=== PATIENT | male | born 1930 | race Caucasian/White ===

== ENCOUNTER 2018-11-15 16:05 | Inpatient (IN) ==
--- NOTE | 2018-11-15 16:43 | PROVIDER DOCUMENTATION ---
HPI-Musculoskeletal Pain/Inj - GENERAL Chief Complaint: Hip Pain Stated Complaint: FALL FROM STANDING Time Seen by Provider: 11/15/18 16:32 Source: patient - HX OF PRESENT ILLNESS-MUSKULOSKELTAL Nature of Presenting Problem: 88yom present to ER via EMS with c/o left hip pain. Pt reports he got up off the couch to go to restroom and tripped, landing on left hip. Quality of Pain: reports: aching, throbbing Onset/Duration: this afternoon Timing: still present Any recent injury?: Yes Locality of Occurance: Home Similar Symptoms Previously?: No Recently seen or treated by another doctor?: No - FALL INJURY Location of Pain/Injury: reports: pelvis (left hip) Pain Radiation: reports: no radiation Reason for Fall: reports: tripped Loss of Consciousness: no loss of consciousness Injury Associated Symptoms: reports: snap/crack/pop sensation, unable to bear weight, other (left hip pain). denies: chest pain, dizziness, shortness of breath, sensory/motor loss, vomiting Review of Systems - Adult - REVIEW OF SYSTEMS - ADULT Constitutional: reports: no symptoms reported Eyes: reports: no symptoms reported Ears, Nose, Mouth & Throat: reports: no symptoms reported Cardiovascular: reports: no symptoms reported Respiratory: reports: no symptoms reported Gastrointestinal: reports: no symptoms reported Genitourinary: reports: no symptoms reported Musculoskeletal: reports: see HPI, other (left hip pain) Integumentary: reports: no symptoms reported Neurological: reports: no symptoms reported Psychiatric: reports: no symptoms reported Endocrine: reports: no symptoms reported Hematologic/Lymphatic: reports: no symptoms reported Allergic/Immunologic: reports: no symptoms reported All Other Systems: Reviewed and Negative Past History - Adult - PAST MEDICAL HISTORY-ADULT Review of Records: reports: Old Records Reviewed, Nursing Assessment Review, Medications Reviewed Major Childhood Illnesses: reports: denies history Cardiovascular: reports: denies history Respiratory: reports: denies history Gastrointestinal: reports: denies history Obstetrical/Gynecological: reports: denies history Genitourinary: reports: denies history Musculoskeletal: reports: denies history Neurological: reports: denies history Endocrine/Immune: reports: Lymphoma, thyroid disorder Other Conditions: reports: denies history - IMMUNIZATION STATUS Childhood Immunizations: See Nurse Assessment Flu Vaccine: See Nurse Assessment - FAMILY HISTORY Family History: reviewed, not pertinent Physical Exam-Injury Related - Physical Exam-Injury Related Initial Vital Signs Reviewed: Yes General Appearance: alert, mild distress Eyes: PERRL/EOMI Head, Ears, Nose, Mouth & Throat: moist mucous membranes Neck: full range of motion, supple, normal inspection Respiratory: lungs clear, no respiratory distress, no accessory muscle use Cardiovascular: normal peripheral pulses, regular rate, rhythm Peripheral Pulses: dorsalis-pedis (L): 1+ Abdominal Exam: normal bowel sounds, non tender, soft Extremity: no pedal edema, no calf tenderness, normal capillary refill, deformity, tenderness (left hip), other (rotation and shortening noted). negative: erythema Integumentary: normal color, warm/dry Psych/Mental Status: normal mood/affect, oriented x 3 - Glascow Coma Score Best Eye Response (Lydia): (4) open spontaneously Best Verbal Response (Campbell): (5) oriented Best Motor Response (Campbell): (6) obeys commands Progress - PLAN OF CARE/RESULTS Progress/Plan/Lab Results: Vital Signs - 8 hr 11/15/18 16:12 Temperature 97.8 F Pulse Rate 55 L Respiratory Rate 20 Blood Pressure 132/59 O2 Sat by Pulse Oximetry 94 L Orders Category Date Time Status Ordoñez Cath Insertion ORDERED Care 11/15/18 18:29 Active Nursing- Obtain EKG ONCE Care 11/15/18 17:59 Active Saline Loc NOW Care 11/15/18 17:59 Active Update & Confirm Home Medicati ROUTINE Care 11/15/18 18:23 Active XRAY PELVIS W/HIP 2-3VW LT [RAD] Stat Exams 11/15/18 16:34 Completed CBC WITH ELECTRONIC DIFF [HEME] Stat Lab 11/15/18 18:33 Ordered COMPREHENSIVE METABOLIC PANEL [CHEM] Stat Lab 11/15/18 18:33 Ordered PROTIME WITH INR [COAG] Stat Lab 11/15/18 18:33 Ordered PTT [COAG] Stat Lab 11/15/18 18:33 Ordered URINALYSIS W/POSS RFLX CULT [URINALYSIS] Stat Lab 11/15/18 17:59 Uncollected Morphine Med 11/15/18 18:12 Discontinued 2 mg IV NOW ONE Ondansetron [Zofran] Med 11/15/18 18:13 Discontinued 4 mg IV NOW ONE EKG [EKG] Stat Ther 11/15/18 17:59 Ordered Transfer/Admit Order [TRANSFER] Routine Transfer 11/15/18 18:19 Ordered - XRAY 1 XRAY: Left XRAY Study: Pelvis, Hip Impression: See EMR Report ([facility] [address] , [address], [place] [address] Department of Imaging Patient: CHARLOTTE WATSON Date: 11/15/18#: [id number] : 1930ADM Status: REG ERAcct#: [id number] Age/Sex: 88/MRoom/Bed: Loc: P.ED Ordering Physician: Minerva Nevarez Family Physician: None,PCP Reason for Procedure: hip pain Signed EXAM: XRAY PELVIS W/HIP 2-3VW LT - 11/15/2018 HISTORY: hip pain TECHNIQUE: Left hip and pelvis three views COMPARISON: None. FINDINGS: There is an intertrochanteric fracture of the left femur with comminution and varus deformity. Fracture appears to extend into the subtrochanteric region. There is no other fracture or dislocation identified. IMPRESSION: Intertrochanteric/subtrochanteric fracture of left femur. Electronically signed by Gustavo Metz 11/15/2018 5:47 PM 11/15/181746 Interpreting Physician: Gustavo Metz MD Dictated Date/Time: 11/15/181745 cc: Minerva Nevarez; None,PCP) - CONSULTS/PCP/HOSPITALIST Notification #1 *Consult/PCP/Hospitalist*: MD Eboni Time Discussed: 17:55 Reason/Comments: Femur fx Consult Disposition: Admit #2 Consult: MD Valerio Time Discussed: 18:05 Reason/Comments: Femur fx Consult Disposition: other (Will see at and consult w/ Eboni) - CHANGE OF SHIFT REPORT (ED Provider) 1 Report Given and Care Transferred to:: MARTÍN Alejandro Time of Transfer: 17:00 Items Pending: XRAY Results Departure - Departure Date of Disposition Decision: 11/15/18 Time of Disposition Decision: 18:01 DIAGNOSIS: Femur fracture, left Qualifiers: Encounter type: initial encounter Femur location: intertrochanteric Fracture type: closed Fracture alignment: nondisplaced Qualified Code(s): S72.145A - Nondisplaced intertrochanteric fracture of left femur, initial encounter for closed fracture Disposition: ADMITTED INPATIENT 09 Certified Medical Emergency: Emergent Condition: Stable Referrals and Follow-Ups: None,PCP [Primary Care Provider] - - Critical Care Note This patient required my direct & personal management of CC.: No Attestation - Physician/ RONALD Attestation Patient care was provided by Advanced Practice Provider:: Yes Advanced Practice Provider:: Caitie Mayorga Advanced Practice Provider documentation review:: The Mid-level provider documentation, treatment plan and medical decision making was reviewed by the physician who agrees with all treatment and medical decision making by the P. The physician spent face to face time with patient:: No Advanced Practice Provider documentation review:: Supervising physician onsite and consulted in the evaluation and care of this patient. The physician did not have a face to face encounter with the patient.
--- NOTE | 2018-11-15 17:49 | Diag Imaging Result Doc PS360 ---
EXAM: XRAY PELVIS W/HIP 2-3VW LT - 11/15/2018 HISTORY: hip pain TECHNIQUE: Left hip and pelvis three views COMPARISON: None. FINDINGS: There is an intertrochanteric fracture of the left femur with comminution and varus deformity. Fracture appears to extend into the subtrochanteric region. There is no other fracture or dislocation identified. IMPRESSION: Intertrochanteric/subtrochanteric fracture of left femur. Electronically signed by Gustavo Metz 11/15/2018 5:47 PM
[2018-11-15] MEDS ORDERED: MORPHINE IV ONE (18:12)
[2018-11-15] MEDS ORDERED: ZOFRAN IV ONE (18:13)
[2018-11-15 19:01] LABS: BASO# 0.04 X1000 (0.0-0.2); BASO% 0.7 % (0.0-0.8); EOS# 0.05 X1000 (0.0-0.7); EOS% 0.9 % (0.0-10.0); HEMATOCRIT 35.8 % (42.0-52.0); HEMOGLOBIN 11.5 g/dL (14.0-18.0); IMM GRAN# 0.08 X1000 (0.0-0.04); IMM GRAN% 1.4 % (0.0-0.5); LYMPH# 1.58 X1000 (1.2-3.4); LYMPH% 28.5 % (20.5-51.1); MCH 30.6 PG (27-31); MCHC 32.1 g/dL (33-37); MCV 95.2 FL (81-99); MONO# 0.56 X1000 (0.11-0.59); MONO% 10.1 % (1.7-9.3); MPV 10.3 FL (7.4-10.4); NEUT# 3.24 X1000 (1.4-6.5); NEUT% 58.4 % (42.2-75.2); PLT 145 X1000 (130-400); RBC 3.76 XMIL (4.7-6.1); RDW 16.8 % (11.5-14.5); WBC 5.55 X1000 (4.8-10.8)
[2018-11-15 19:18] LABS: AGAP 10; ALBUMIN 3.4 g/dL (3.5-5.0); ALKALINE PHOSPHATASE 84 U/L (32-122); BUN 14 mg/dL (8-22); CALCIUM 8.8 mg/dL (8.8-10.2); CHLORIDE 102 mmol/L (98-107); COSMO 279; CREATININE 0.9 mg/dL (0.7-1.2); ESTIMATED GFR > 60; GLUCOSE 118 mg/dL (70-104); GOT 30 U/L (10-34); GPT 12 U/L (10-44); POTASSIUM 4.2 mmol/L (3.5-5.1); SODIUM 139 mmol/L (136-145); TCO2 27 mmol/L (25-35)
[2018-11-15 19:20] LABS: INR 0.94
[2018-11-15 19:21] LABS: PTT 27.6 Seconds (22.3-41.8)
--- NOTE | 2018-11-15 19:46 | HISTORY AND PHYSICAL ---
SUBJECTIVE: Recent fall. HISTORY OF PRESENT ILLNESS: The patient is an 88-year-old male who comes from home with status post fall. He denies any syncope , or any prodromal palpitations; in the sense of he denies any passing out. He fell on his left hip and was unable to ambulate subsequently. Patient has not had any other fractures. Pt came to the ER for evaluation; and in the ER revealed a displaced intertrochanteric hip fracture. He states he got up from the couch and tripped. Again there was no syncope. He does have a history of non-Hodgkin's lymphoma, looks like atrial fibrillation but he is not on chronic anticoagulation. He reports pain with movement of his hip and he cannot bear any weight on that leg. He will be admitted for left hip fracture and will transfer to [facility]. Dr. Luo has been notified. PAST MEDICAL HISTORY: 1. Non-Hodgkin's for which she is getting treatment per Dr. Dudley. 2. Paroxysmal atrial fibrillation. 3. Hypertension. 4. BPH. 5. Chronic diastolic heart failure. 6. Anxiety disorder, depression. 7. Carotid disease. 8. Dyslipidemia. PAST SURGICAL HISTORY: He has had cholecystectomy, left knee surgery, right inguinal herniorrhaphy. SOCIAL HISTORY: No tobacco. No alcohol. FAMILY HISTORY: Reviewed, noncontributory. ALLERGIES: Haldol. MEDICATIONS: List is being compiled. Aspirin 81, amiodarone 200, Zydelig 150 daily, Colace, Flomax, [place] and Zofran. Now, he was recently admitted in June for right inguinal repair. REVIEW OF SYSTEMS: Otherwise, negative times a 10-point review of systems. PHYSICAL EXAMINATION: Blood pressure 132/59, heart rate 55, respiratory rate of 20, temperature 97.8. 94% on room air. GENERAL: Well-developed male in no acute distress. HEENT: Head exam was normocephalic, atraumatic. Eye exam: Pupils equal, round, reactive to light. Extraocular movements were intact. Ears, nose and throat exam: He had moist mucous membranes. NECK: Supple. CARDIOVASCULAR: Regular rate and rhythm. No murmurs, gallops, or rubs. PULMONARY: Bilateral breath sounds. Clear to auscultation. GASTROINTESTINAL: Soft, nontender, nondistended. Bowel sounds are positive. EXTREMITIES: Left leg was foreshortened and completely externally rotated. Extreme pain upon movement. LABORATORY DATA: 1. I do not have anything back yet because they were waiting on those and that information. ASSESSMENT: 1. This is an 88-year-old male with non-Hodgkin's and paroxysmal atrial fibrillation. He is not on any strong anticoagulants that we are aware of, he has a left hip fracture pending his EKG and preliminary labs, I think should be able to proceed with surgery, but I am waiting on that information. Dr. Luo has been contacted. We will continue pain control and follow closely. 2. Non-Hodgkin's lymphoma. Seems to be controlled on current medications. It looks like he is on, I am not sure if he is not on a tyrosine kinase inhibitor, but we will continue to follow. 3. Atrial fibrillation and congestive heart failure appear to be compensated. We will monitor that while he is here. I will go ahead and put in for an echocardiogram tomorrow. Anticipate he should be able to undergo surgery soon. DISPOSITION: Pending clinical status. We will continue to follow closely. cc: Kaushik Lyn MD [facility]
[2018-11-15 20:14] LABS: BILIRUBIN URINE NEGATIVE (NEGATIVE); BLOOD URINE 4+ (NEGATIVE); CLARITY CLEAR (CLEAR); COLOR AMBER; GLUCOSE URINE NEGATIVE (NEGATIVE); KETONE URINE TRACE mg/dL (NEGATIVE); PH URINE 6.5; PROTEIN URINE TRACE mg/dL (NEGATIVE); URINE SOURCE CATH; UROBILINOGEN URINE 4 mg/dL
[2018-11-15 20:15] LABS: LEUKOCYTES URINE TRACE (NEGATIVE); NITRITE URINE NEGATIVE (NEGATIVE)
[2018-11-15 20:16] LABS: URINE BACTERIA 1+ /HFP; URINE CAST NONE SEEN /LPF; URINE CRYSTAL NONE SEEN /HPF; URINE EPITHELIAL CELLS <10 /HPF (<10); URINE RBC TNTC /HPF (<10); URINE WBC <10 /HPF (<10); URINE YEAST NONE SEEN /HPF
[2018-11-15] MEDS ORDERED: TYLENOL ONE (21:24)
[2018-11-15] MEDS ORDERED: TYLENOL PO ONE (21:31)
[2018-11-15] MEDS ORDERED: TYLENOL PO PRN (21:53)
[2018-11-15] MEDS ORDERED: ZOFRAN IV PRN (21:53)
[2018-11-15] MEDS: NS 1,000 ML IV SCH (22:14)
[2018-11-15] MEDS: MORPHINE IV PRN (22:55)
[2018-11-16] MEDS: MORPHINE IV PRN ×4 (03:22→23:29)
[2018-11-16 06:28] LABS: BASO# 0.03 X1000 (0.0-0.2); BASO% 0.6 % (0.0-0.8); EOS# 0.01 X1000 (0.0-0.7); EOS% 0.2 % (0.0-10.0); HEMATOCRIT 32.2 % (42.0-52.0); IMM GRAN# 0.07 X1000 (0.0-0.04); IMM GRAN% 1.4 % (0.0-0.5); LYMPH# 1.56 X1000 (1.2-3.4); LYMPH% 31.3 % (20.5-51.1); MCH 29.9 PG (27-31); MCHC 31.1 g/dL (33-37); MCV 96.4 FL (81-99); MONO# 0.68 X1000 (0.11-0.59); MONO% 13.7 % (1.7-9.3); MPV 10.1 FL (7.4-10.4); NEUT# 2.63 X1000 (1.4-6.5); NEUT% 52.8 % (42.2-75.2); PLT 107 X1000 (130-400); RBC 3.34 XMIL (4.7-6.1); RDW 16.7 % (11.5-14.5); WBC 4.98 X1000 (4.8-10.8)
[2018-11-16 06:51] LABS: CREATININE 1.3 mg/dL (0.7-1.2)
[2018-11-16] MEDS ORDERED: KEFZOL 2 GM/D5W 2 GM/50 ML IVPB IV ONE (07:52)
--- NOTE | 2018-11-16 09:28 | CONSULTATION ---
DATE OF CONSULTATION: 11/16/2018 CHIEF COMPLAINT: Fall with left leg pain and inability to ambulate, and left leg deformity. HISTORY OF PRESENT ILLNESS: This is an 88-year-old male who had a same-level fall at home. He denies any loss of consciousness. He subsequently was unable to ambulate, and had an obvious deformity to his hip. He was sent to the ER and diagnosed with a displaced intertrochanteric comminuted hip fracture on the left, and I was asked to see him in orthopedic consultation. PAST MEDICAL HISTORY: Includes non-Hodgkin's lymphoma with his treating physician being Dr. Acuña. He has a history of atrial fibrillation, hypertension, prostatic hypertrophy, diastolic heart failure, anxiety, carotid artery disease and hyperlipidemia. PAST SURGICAL HISTORY: Includes a cholecystectomy, left knee surgery, and a right inguinal hernia. SOCIAL HISTORY: Negative for tobacco or alcohol use. FAMILY HISTORY: Noncontributory. ALLERGIES: Include Haldol. MEDICATIONS: See medication list in the chart. REVIEW OF SYSTEMS: Except for his hip, negative and normal in all systems. PHYSICAL EXAMINATION: Reveals a well-nourished male. He is alert and oriented and cooperative on exam. Exam of his hip reveals pain with any range of motion. His leg is shortened and externally rotated. His leg is neurovascularly intact. DIAGNOSTIC DATA: X-rays show a comminuted intertrochanteric hip fracture on the left. IMPRESSION: A comminuted intertrochanteric hip fracture on the left. PLAN: We will plan on performing a left long trochanteric fixation nail placement. I have discussed this at length with the family. I have discussed with him the risks, benefits and alternatives of surgery, including, but not limited to bleeding, nerve damage, infection, risk from anesthesia, hardware failure, malunion, nonunion, up to and including loss of limb, life, and other imponderables. He and his family voiced their understanding. All questions were answered. No guarantees were given. They requested we proceed as planned. We will schedule surgery as soon as OR time is available. cc: Toan Luo MD [facility]
--- NOTE | 2018-11-16 09:46 | EKG Report ---
Test Performed on : 11/15/2018 7:12:08 PM Test Reason : Pre-Op Blood Pressure : / mmHG Vent. Rate : 062 BPM Atrial Rate : 057 BPM P-R Int : 000 ms QRS Dur : 094 ms QT Int : 370 ms P-R-T Axes : 000 -35 047 degrees QTc Int : 375 ms Junctional rhythm. Left axis deviation Abnormal ECG When compared with ECG of 27-JUN-2018 10:04, Junctional rhythm. has replaced Sinus rhythm. QT has shortened Unconfirmed Result
[2018-11-16] MEDS ORDERED: DIPRIVAN 1% ONE (10:42)
[2018-11-16] MEDS ORDERED: XYLOCAINE-MPF 2% ONE (10:45)
[2018-11-16] MEDS ORDERED: KEFZOL 2 GM/D5W 2 GM/50 ML IVPB ONE (11:55)
[2018-11-16] MEDS ORDERED: AMIDATE ONE (12:05)
[2018-11-16] MEDS ORDERED: EPHEDRINE ONE (12:18)
[2018-11-16] MEDS ORDERED: TORADOL ONE (12:40)
[2018-11-16] MEDS ORDERED: DECADRON ONE (12:40)
[2018-11-16] MEDS ORDERED: ROBINUL ONE (12:44)
[2018-11-16] MEDS: NS 1,000 ML IV SCH (13:59)
--- NOTE | 2018-11-16 14:01 | OPERATIVE NOTE ---
PROCEDURE DATE: 11/15/2018 PREOPERATIVE DIAGNOSIS: Left comminuted intertrochanteric hip fracture. POSTOPERATIVE DIAGNOSIS: Left comminuted intertrochanteric hip fracture. PROCEDURE: Left long trochanteric fixation nail placement size 420 mm with 110 mm helical blade and two 5.0 distal locking screws, size 50 and 58 mm in length. BLOOD LOSS: Minimal. DRAINS: None. COMPLICATIONS: None. SURGEON: Toan Luo MD. PROJECT CONTROL ANALYST: Mary Issa PA-C, who was present throughout the case. The medical office receptionist assistant was critical for exposure, placement implants and wound closure. His assistance greatly reduced anesthesia and operative time and improved efficiency in the OR. DESCRIPTION OF PROCEDURE: Patient was brought to the operative suite and placed in supine position after successful administration of general anesthesia. The patient was placed on the fracture table in the usual position for left hip. The left hip was then reduced under fluoroscopy. The left hip and leg were prepped and draped in usual sterile fashion. A longitudinal incision was made to the proximal to the tip of the greater trochanter and dissected sharply through the skin. A guide pin was placed in center of the femoral canal on AP and lateral images. It was reamed with a solid cannulated reamer. A ball-tipped guide pin was buried in distal metaphysis and proper length nail of 420 mm was measured. The nail was then driven into place, and then through a stab incision laterally a guide pin was used in the proximal guide. The guide pin was placed in center of the femoral head on AP and lateral images. It was measured to 110 mm. A 110 mm helical blade was then driven into place and locked proximally and then released to allow for compression. Traction was released. Then using the perfect circles technique through stab incision, the distal locking screws were drilled and measured of 50 and 58 mm, and were driven into place. Excellent reduction and placement of hardware was obtained on AP and lateral images. The wounds were copiously irrigated. Skin edge approximated with 2-0 Vicryl. Skin was closed with skin mery, and a sterile dressing was applied. The patient tolerated the procedure well without complications at the end of the procedure. All counts were correct x2. The patient was transferred to the recovery room in stable condition. cc: Toan Luo MD [facility]
[2018-11-16] MEDS ORDERED: ZOFRAN IV PRN (14:21)
[2018-11-16] MEDS ORDERED: HALDOL IV PRN (14:21)
[2018-11-16] MEDS ORDERED: MORPHINE IV PRN (14:21)
[2018-11-16] MEDS ORDERED: MILK OF MAGNESIA PO PRN (14:21)
--- NOTE | 2018-11-16 15:15 | ECHO REPORT ---
ORDER DATE: 11/16/2018 INDICATIONS: Congestive heart failure. FINDINGS: 1. Right atrium appears normal size at 3.5 cm. 2. Mild tricuspid regurgitation. RV systolic pressure of 36. 3. Normal RV size and systolic function. 4. Mild pulmonic insufficiency. 5. Moderate left atrial enlargement with a volume index of 38. Dimension of 4.3 cm. 6. No mitral valve prolapse. Trace mitral regurgitation. Mitral annular calcification is noted. No significant mitral stenosis. 7. Normal LV size, end-diastolic dimension of 4.2. Moderate left ventricular hypertrophy. Posterior and interventricular septal wall thickness 1.6 cm respectively. Normal LV systolic function. Estimated EF of 65% with normal wall motion. 8. Aortic valve opens well. There is no clear evidence of stenosis or insufficiency. 9. Aorta appears somewhat dilated with a dimension of 4.5 cm. 10. No pericardial effusion seen. cc: MD Melvin Wellington MD
--- NOTE | 2018-11-16 16:06 | PROGRESS NOTE ---
DATE: 11/16/2018 SUBJECTIVE: The patient is resting in bed. OBJECTIVE: Vital Signs: Temperature 98 degrees, pulse is 86, respiratory rate 16, blood pressure 97/46, O2 saturation is 97%. HEENT: Atraumatic, normocephalic. Cardiovascular: S1, S2. Respiratory: Has evidence of good entry bilaterally. Abdomen: Soft, nontender. No masses. Extremities: Has edema in both lower extremities. Central Nervous System: No obvious focal deficits noted. LABORATORY DATA: WBC 4.9, hematocrit 32.3, platelet count of 107,000, Sodium is 139, potassium 4.0, chloride is 104, bicarbonate 28, BUN is 20, creatinine 1.3. ASSESSMENT AND PLAN: 1. Comminuted intertrochanteric hip fracture on the left status post repair. Optimize pain control. Maintain the patient on deep venous thrombosis prophylaxis and also incentive spirometry. PT and OT when considered appropriate by the Orthopedic Team. 2. Acute kidney injury. Maintain the patient on intravenous fluids. Follow up on renal function. 3. Non-Hodgkin's lymphoma. Consultation with Oncology. 4. Atrial fibrillation. Heart rate is controlled. Continue the patient on amiodarone. 5. Congestive heart congestive heart failure. The patient is well compensated at this time. Monitor intakes and outputs as well as daily weights. Use diuretics as needed. 6. Deep vein thrombosis prophylaxis. Lovenox. cc: Melvin Bennett MD
[2018-11-16] MEDS: TYLENOL PO SCH ×2 (16:07→21:58)
[2018-11-16] MEDS: LOVENOX SUBQ SCH (16:07)
[2018-11-16] MEDS ORDERED: COLACE PO SCH (21:00)
[2018-11-16] MEDS: OXY IR PO PRN (21:57)
[2018-11-16] MEDS: COLACE PO SCH (21:58)
[2018-11-16] MEDS: PERIDEX MT SCH (22:25)
[2018-11-16] MEDS: PATIENT'S OWN MED PO SCH (22:28)
[2018-11-17] MEDS: NS 1,000 ML IV SCH ×2 (05:17→20:04)
[2018-11-17] MEDS: TYLENOL PO SCH ×4 (05:36→22:59)
[2018-11-17 06:22] LABS: BASO# 0.01 X1000 (0.0-0.2); BASO% 0.2 % (0.0-0.8); HEMATOCRIT 28.1 % (42.0-52.0); HEMOGLOBIN 8.7 g/dL (14.0-18.0); IMM GRAN# 0.22 X1000 (0.0-0.04); IMM GRAN% 3.5 % (0.0-0.5); LYMPH% 28.4 % (20.5-51.1); MCH 30.4 PG (27-31); MCV 98.3 FL (81-99); MONO# 0.73 X1000 (0.11-0.59); MONO% 11.5 % (1.7-9.3); MPV 10.8 FL (7.4-10.4); NEUT# 3.57 X1000 (1.4-6.5); NEUT% 56.4 % (42.2-75.2); PLT 90 X1000 (130-400); RBC 2.86 XMIL (4.7-6.1); RDW 16.9 % (11.5-14.5); WBC 6.33 X1000 (4.8-10.8)
[2018-11-17] MEDS ORDERED: DIPRIVAN 1% ONE (07:55)
[2018-11-17] MEDS: PERIDEX MT SCH ×2 (08:57→22:59)
[2018-11-17] MEDS: FERROUS SULFATE PO SCH (08:57)
[2018-11-17] MEDS: PATIENT'S OWN MED PO SCH ×2 (08:58→20:06)
[2018-11-17] MEDS: ASPIRIN PO SCH (08:58)
[2018-11-17] MEDS: CORDARONE PO SCH (08:58)
[2018-11-17] MEDS: COLACE PO SCH ×2 (08:58→20:03)
[2018-11-17 09:03] LABS: ALB/GLOB RATIO 1.2; CALCIUM 8.2 mg/dL (8.8-10.2); CREATININE 1.7 mg/dL (0.7-1.2); POTASSIUM 4.3 mmol/L (3.5-5.1); TOTAL BILIRUBIN 0.76 mg/dL (0.20-1.00); TOTAL PROTEIN 5.5 g/dL (6.3-8.3)
[2018-11-17] MEDS: OXY IR PO PRN ×2 (15:01→20:03)
[2018-11-17] MEDS: LOVENOX SUBQ SCH (15:18)
--- NOTE | 2018-11-17 15:52 | PROGRESS NOTE ---
DATE: 11/17/2018 SUBJECTIVE: Today Mr. Person refers to be doing fairly okay. He was requesting to know when he will be able to go home. , daughter and son were all at the bedside at the time of the encounter. Denies any complaints. OBJECTIVE: Vital signs: Blood pressure is 133/59, pulse is 69, respiration is 20, temperature 98.1 degrees. General: Mr. Person is an 88-year-old male. He is in bed, no distress. HEENT: Mucosa is pink and moist. Anicteric. Acyanotic. Neck: Supple. Chest: Good air entry bilaterally. No crepitations. No rhonchi. Cardiovascular: Regular rate and rhythm. No murmurs, no rubs, no gallops. Abdomen: Soft, nontender. Extremities: No pedal edema. The left hip still has a dressing over the surgical wound and it is minimally tender and swelling from postsurgical changes. LABORATORY DATA: WBC is 6.33, hemoglobin is 8.7, platelet count of 90,000. Chemistry is also reviewed. Creatinine is 1.7. CURRENT MEDICATIONS: Have all been reviewed. No changes. ASSESSMENT: 1. Comminuted left intertrochanteric fracture status post status post open reduction and internal fixation. This was done by Dr. Luo. Today is day 2 postoperatively and patient seems to be doing fairly okay. 2. Acute renal failure. We will continue with the IV fluids. 3. History of non-Hodgkin. 4. History of atrial fibrillation, currently rate controlled. 5. History of occasional vertigo and dizziness. The patient is advised to follow up with an ENT at a later date. cc: Anmol Cook MD
--- NOTE | 2018-11-17 16:14 | ORTHOPAEDICS PROGRESS NOTE ---
DATE: 11/17/2018 Mr. Person is seen status post TFN fixation of his hip. The present time, he is awake and alert and comfortable. He has some slight confusion. His bandages are clean and dry. He appears to be motor and sensory intact. Vital signs are stable as well as hematocrit. He can be mobilized partial weightbearing on that side. We will follow along through tomorrow. He can be discharged to rehab or home health when stable. cc: Jamie Bhandari MD
[2018-11-17] MEDS: MORPHINE IV PRN (23:26)
[2018-11-18] MEDS: TYLENOL PO SCH ×3 (05:23→22:50)
[2018-11-18] MEDS: OXY IR PO PRN ×3 (05:23→22:50)
[2018-11-18 06:08] LABS: HEMATOCRIT 23.9 % (42.0-52.0); HEMOGLOBIN 7.6 g/dL (14.0-18.0)
[2018-11-18 06:34] LABS: ALBUMIN 3.1 g/dL (3.5-5.0); CALCIUM 9.3 mg/dL (8.8-10.2); CREATININE 1.6 mg/dL (0.7-1.2); PHOSPHORUS 2.4 mg/dL (2.7-4.5); POTASSIUM 4.5 mmol/L (3.5-5.1)
[2018-11-18] MEDS: PERIDEX MT SCH ×2 (09:33→22:50)
[2018-11-18] MEDS: COLACE PO SCH ×2 (09:34→22:50)
[2018-11-18] MEDS: PATIENT'S OWN MED PO SCH ×2 (09:34→22:51)
[2018-11-18] MEDS: ASPIRIN PO SCH (09:34)
[2018-11-18] MEDS: FERROUS SULFATE PO SCH (09:34)
[2018-11-18] MEDS: CORDARONE PO SCH (09:34)
--- NOTE | 2018-11-18 11:10 | ORTHOPAEDICS PROGRESS NOTE ---
DATE: 11/18/2018 SUBJECTIVE: Mr. Person is seen today status post TFN fixation of the hip. He is doing relatively well. His incisions are clean and dry. There has been some slight venous oozing. Otherwise, he is afebrile with stable vital signs. We have discussed some discharge plans. He is considering going home with home therapy versus inpatient rehab. We will see the associate merchandise planner to start working on that. We will consider discharge one way or the other tomorrow. cc: Jamie Bhandari MD
--- NOTE | 2018-11-18 13:19 | PROGRESS NOTE ---
DATE: 11/18/2018 SUBJECTIVE: The patient resting in bed. Has family present in the room. OBJECTIVE: Vital signs: Temperature 98.8 degrees, pulse of 64, respiratory rate 16, blood pressure 103/45, oxygen saturation is 95%. HEENT: He is atraumatic, normocephalic. Cardiovascular System: S1, S2. Respiratory system has evidence of good air entry bilaterally. Abdomen is soft, nontender, no masses felt. Extremities: He has 1+ edema in the lower extremities. Central nervous system: The patient is awake and alert, with no obvious focal neurological deficits noted. LABORATORY DATA: Hemoglobin 7.6, hematocrit 23.9. Sodium is 134, potassium 4.5, chloride is 99, bicarbonate 25, BUN is 37, creatinine is 1.6. ASSESSMENT AND PLAN: 1. Comminuted intertrochanteric hip fracture on the left status post repair. Optimize pain control. Continue DVT prophylaxis as well as incentive spirometry. PT/OT has been recommended. 2. Acute kidney injury. The patient is currently on intravenous fluids. Continue to follow up on patient's renal function. 3. Non-Hodgkin's lymphoma. Aware. Follow up with Oncology post discharge from the hospital. 4. Atrial fibrillation. Heart rate is controlled. Continue amiodarone. 5. Congestive heart failure. Monitor intakes and outputs, as well as daily weights. Use diuretics if needed. 6. Deep vein thrombosis prophylaxis. Lovenox. DISPOSITION: I discussed with patient the need for rehabilitation placement. He will think about it and decide on what to do. cc: Melvin Bennett MD
[2018-11-18] MEDS: LOVENOX SUBQ SCH (14:21)
[2018-11-18] MEDS: NS 1,000 ML IV SCH ×2 (19:24)
[2018-11-19] MEDS: TYLENOL PO SCH ×3 (05:50→21:57)
[2018-11-19] MEDS: OXY IR PO PRN ×2 (05:50→21:57)
[2018-11-19 06:00] LABS: HEMATOCRIT 25.1 % (42.0-52.0); HEMOGLOBIN 7.9 g/dL (14.0-18.0); IMM GRAN# 0.15 X1000 (0.0-0.04); IMM GRAN% 1.9 % (0.0-0.5); LYMPH# 3.77 X1000 (1.2-3.4); LYMPH% 48.3 % (20.5-51.1); MCH 29.9 PG (27-31); MCHC 31.5 g/dL (33-37); MCV 95.1 FL (81-99); MONO# 1.01 X1000 (0.11-0.59); MONO% 12.9 % (1.7-9.3); MPV 10.3 FL (7.4-10.4); NEUT# 2.88 X1000 (1.4-6.5); NEUT% 36.9 % (42.2-75.2); PLT 107 X1000 (130-400); RBC 2.64 XMIL (4.7-6.1); RDW 17.1 % (11.5-14.5); WBC 7.81 X1000 (4.8-10.8)
[2018-11-19 06:21] LABS: CALCIUM 8.6 mg/dL (8.8-10.2); CREATININE 1.2 mg/dL (0.7-1.2); POTASSIUM 4.2 mmol/L (3.5-5.1)
--- NOTE | 2018-11-19 08:53 | PROGRESS NOTE ---
DATE: 11/19/2018 SUBJECTIVE: Fly Person is an 88-year-old white male who underwent a TFN on Monday. He has had minimal progress with Physical Therapy this weekend. He complains of dizziness at home causing the fall as well as weakness and nervousness and apprehension about walking due to fear of falling. OBJECTIVE: General: He is a well-developed, well-nourished male. He is alert, oriented, and cooperative exam. Vital signs: Stable. He is afebrile. Integument: His wounds have some mild serosanguineous drainage and bruising, which is appropriate. LABORATORY: His hematocrit was 24 on Monday and 25 yesterday. ASSESSMENT: Status post left trochanteric fixation nail with acute blood loss anemia. PLAN: Some of his weakness may be due to his anemia. I am going to transfuse him 2 units today, that should help give him more energy hopefully to be able to do his therapy. We do need to get him walking at least a little bit better before he can go to rehab, so I think we should keep him at least today and maybe tomorrow, maybe go on Monday. Also due to oozing from his wounds and his low hematocrit, I am going to hold his Lovenox and just increase his aspirin to 325 a day. cc: Toan Luo MD
[2018-11-19] MEDS: CORDARONE PO SCH (10:01)
[2018-11-19] MEDS: FERROUS SULFATE PO SCH (10:01)
[2018-11-19] MEDS: COLACE PO SCH ×2 (10:01→21:57)
[2018-11-19] MEDS: PATIENT'S OWN MED PO SCH ×2 (10:03→22:02)
[2018-11-19] MEDS: ASPIRIN PO SCH (10:06)
--- NOTE | 2018-11-19 12:01 | PROGRESS NOTE ---
DATE: 11/19/2018 SUBJECTIVE: Patient resting in bed. No new complaints today. OBJECTIVE: Vital signs: Temperature 98.4 degrees, pulse 65, respirations 16, blood pressure 127/57, oxygen is 97%. HEENT: She is atraumatic, normocephalic. Cardiovascular: S1, S2. Respiratory system: Has evidence of good air entry bilaterally. Abdomen: Soft, nontender. No masses felt. Extremities: Has trace edema in the lower extremities. Central nervous system: No obvious focal deficit noted. LABORATORY DATA: WBC 7.1, hematocrit is 25.1, with a platelet count of 107,000. Sodium is 137, potassium 4.2, chloride is 103, bicarb 27, BUN is 28, creatinine 1.2. ASSESSMENT AND PLAN: 1. Comminuted intertrochanteric hip fracture on the left, status post repair. Optimize pain control. Continue DVT prophylaxis as well as incentive spirometry. PT and OT as recommended by Orthopedics. 2. Acute kidney injury. Renal function improving. Continue intravenous fluids. 3. History of non-Hodgkin lymphoma. Aware. Follow up with Oncology post discharge from the hospital. 4. Atrial fibrillation. Heart rate controlled. Continue amiodarone. 5. Congestive heart failure. Stable. Monitor intakes and outputs as well as daily weights. Use diuretics if needed. 6. Anemia. Check iron studies, along with a B12 and folate levels. Follow up on hemoglobin, hematocrit. Transfuse packed red blood cells if needed. 7. Deep vein thrombosis prophylaxis. Lovenox. 8. Gastrointestinal prophylaxis. Proton pump inhibitor. cc: Melvin Bennett MD
[2018-11-19 12:03] LABS: IRON SATURATION 73 %; TIBC 175 ug/dL; TOTAL IRON 128 ug/dL (53-167); UNBOUND IRON 47 ug/dL (112-346)
[2018-11-19 12:39] LABS: FERRITIN 750 ng/mL (30-400)
[2018-11-19] MEDS: PERIDEX MT SCH ×2 (16:36→21:58)
[2018-11-19] MEDS: NS 1,000 ML IV SCH (16:40)
[2018-11-19] MEDS ORDERED: GEODON IM ONE (19:00)
[2018-11-19] MEDS ORDERED: STERILE WATER INJ. INJ ONE (19:00)
[2018-11-20] MEDS: OXY IR PO PRN (02:22)
[2018-11-20] MEDS ORDERED: STERILE WATER INJ. INJ ONE (03:31)
[2018-11-20] MEDS ORDERED: GEODON IM ONE (03:31)
[2018-11-20 06:04] LABS: URINE SOURCE CLEAN CATCH
[2018-11-20 06:19] LABS: BILIRUBIN URINE NEGATIVE (NEGATIVE); BLOOD URINE MODERATE (NEGATIVE); COLOR YELLOW; GLUCOSE URINE NEGATIVE (NEGATIVE); KETONE URINE NEGATIVE (NEGATIVE); LEUKOCYTES URINE LARGE (NEGATIVE); NITRITE URINE NEGATIVE (NEGATIVE); PROTEIN URINE TRACE mg/dL (NEGATIVE); SP GRAVITY URINE 1.016; TURBIDITY URINE HAZY (CLEAR); UROBILINOGEN URINE 2 mg/dL (NORMAL)
[2018-11-20 06:28] LABS: UR EPITHELIAL CELLS <10 /HPF (<10); URINE BACTERIA 4+ /HPF; URINE WBC TNTC /HPF (<10)
[2018-11-20 06:29] LABS: BASO# 0.01 X1000 (0.0-0.2); BASO% 0.1 % (0.0-0.8); EOS# 0.06 X1000 (0.0-0.7); EOS% 0.8 % (0.0-10.0); HEMATOCRIT 25.9 % (42.0-52.0); HEMOGLOBIN 8.1 g/dL (14.0-18.0); IMM GRAN% 1.4 % (0.0-0.5); LYMPH# 3.83 X1000 (1.2-3.4); LYMPH% 52.5 % (20.5-51.1); MCH 30.2 PG (27-31); MCHC 31.3 g/dL (33-37); MCV 96.6 FL (81-99); MONO# 0.75 X1000 (0.11-0.59); MONO% 10.3 % (1.7-9.3); MPV 10.2 FL (7.4-10.4); NEUT# 2.54 X1000 (1.4-6.5); NEUT% 34.9 % (42.2-75.2); PLT 112 X1000 (130-400); RBC 2.68 XMIL (4.7-6.1); RDW 17.7 % (11.5-14.5); WBC 7.29 X1000 (4.8-10.8)
[2018-11-20 06:48] LABS: URINE CASTS NONE SEEN; URINE CRYSTALS NONE SEEN; URINE SMALL ROUND CELLS NONE SEEN; URINE YEAST NONE SEEN
[2018-11-20] MEDS: TYLENOL PO SCH ×3 (06:51→21:03)
[2018-11-20 06:56] LABS: AGAP 6; BUN 23 mg/dL (8-22); CHLORIDE 105 mmol/L (98-107); COSMO 285; CREATININE 1.1 mg/dL (0.7-1.2); ESTIMATED GFR > 60; GLUCOSE 103 mg/dL (70-104); POTASSIUM 4.2 mmol/L (3.5-5.1); SODIUM 141 mmol/L (136-145); TCO2 30 mmol/L (25-35)
--- NOTE | 2018-11-20 08:21 | PROGRESS NOTE ---
DATE: 11/20/2018 SUBJECTIVE: Don Person is an 88-year-old male who had a TFN placed this past Monday. He has no complaints. OBJECTIVE: He is a well-developed, well-nourished male. He is alert, oriented, and cooperative with the examination. Examination of his hip reveals it is stable. Examination of his leg shows it is neurovascularly intact without sign of infection. His hematocrit only went up to 25.9 from 25.1. Yesterday, his hemoglobin only went up from 7.9 to 8.1 with his 2 units of blood. I am not certain that he got 2 units so I will check on that. ASSESSMENT: Left intertrochanteric hip fracture. PLAN: We will continue to monitor him. He will likely go to rehab soon. However, I am somewhat concerned that we cannot keep his hematocrit up. I will discuss this with his caretakers. cc: Toan Luo MD
--- NOTE | 2018-11-20 08:48 | PROGRESS NOTE ---
DATE: 11/20/2018 ADDENDUM: Mr. Person apparently did not receive his transfusion yesterday. Therefore, it is going to be done today. cc: Toan Luo MD
[2018-11-20] MEDS ORDERED: NS 500 ML IV SCH (09:00)
[2018-11-20] MEDS ORDERED: LASIX IV ONE (09:23)
[2018-11-20] MEDS: ASPIRIN PO SCH (09:51)
[2018-11-20] MEDS: CORDARONE PO SCH (09:51)
[2018-11-20] MEDS: COLACE PO SCH ×2 (09:51→20:57)
[2018-11-20] MEDS: PERIDEX MT SCH ×2 (09:51→20:57)
[2018-11-20] MEDS: FERROUS SULFATE PO SCH (09:51)
[2018-11-20] MEDS: PATIENT'S OWN MED PO SCH ×2 (09:52→20:57)
--- NOTE | 2018-11-20 11:14 | PROGRESS NOTE ---
DATE: 11/20/2018 SUBJECTIVE: This patient is resting comfortably in bed, no complaints today, It looks like he has been confused mostly during the night. He will receive blood transfusion today. His hemoglobin is low at 8.1. Since this patient has diastolic heart failure not in exacerbation, I will give him a dose of Lasix in between the 2 units of PRBCs to avoid fluid overload. Also, we will avoid IV pain medication to avoid more confusion. OBJECTIVE: Vital Signs: Temperature 98.2 degrees, pulse 82, respiratory rate 16, blood pressure 109/47, oxygen saturation 96 on room air. HEENT: Head normocephalic. No trauma. PERRLA. Neck: Supple. No JVD. No masses. Central trachea. Chest: Clear to auscultation. No wheezing. No rales. Abdomen: Soft, nontender, nondistended. No hepatosplenomegaly. Extremities: Left wound at the level of the hip with large bruise around the lesion, mildly painful to palpation and mobilization at this moment. Neurological: This patient is alert, he is oriented. He is able to recognize family members at the bedside and answer all my questions. LABORATORY DATA: WBC 7.2, hemoglobin 8.1, hematocrit 25.9, platelets 112,000. Sodium 141, potassium 4.2, chloride 105, bicarbonate 30, BUN 23, creatinine 1.1, glucose 103, calcium 9. ASSESSMENT AND PLAN: 1. Left comminuted intertrochanteric hip fracture status post left long trochanteric fixation nail placement, postoperative day #5, continue physical therapy. This patient should go to a rehab center once he is clinically better. Orthopedic Surgery following this patient. 2. Acute kidney injury. It looks like he this is getting better. Continue with same management. 3. Anemia, with folate deficiency, he will receive 2 units of post packed red blood cells today and I will start this patient on folic acid. 4. History of non-Hodgkin. Aware. Follow up with Oncology post discharge from the hospital. 5. History of diastolic heart failure, stable. I will give him dose of Lasix today between transfusion to avoid fluid overload. 6. Deep vein thrombosis prophylaxis with Lovenox. 7. Gastrointestinal prophylaxis with proton pump inhibitor. cc: Terry Grijalva MD
--- NOTE | 2018-11-20 12:04 | Diag Imaging Result Doc PS360 ---
EXAM: CHEST-PORTABLE 11/20/2018 HISTORY: REHAB PLACEMENT TECHNIQUE: AP portable at 1152 COMMENT: There is apparent fibrosis in the right costophrenic sulcus. There are calcified granulomata in the left lower lobe and calcified nodes in the left hilum. Considering differences in projection, there has been no significant change since 06/27/2018. IMPRESSION: Stable chest. Electronically signed by Jose L Sherman 11/20/2018 12:01 PM
[2018-11-20] MEDS: GEODON IM PRN ×2 (15:00→20:56)
[2018-11-20] MEDS: STERILE WATER INJ. INJ PRN ×2 (15:01→20:56)
[2018-11-20] MEDS ORDERED: ATIVAN IV ONE (16:47)
[2018-11-21] MEDS: GEODON IM PRN ×2 (03:35→20:49)
[2018-11-21] MEDS: NS 1,000 ML IV SCH (06:07)
[2018-11-21] MEDS: TYLENOL PO SCH ×3 (06:08→20:52)
[2018-11-21 06:12] LABS: EOS# 0.06 X1000 (0.0-0.7); EOS% 0.9 % (0.0-10.0); HEMATOCRIT 31.8 % (42.0-52.0); HEMOGLOBIN 10.3 g/dL (14.0-18.0); IMM GRAN# 0.28 X1000 (0.0-0.04); IMM GRAN% 4.3 % (0.0-0.5); LYMPH# 3.35 X1000 (1.2-3.4); LYMPH% 51.6 % (20.5-51.1); MCH 30.7 PG (27-31); MCHC 32.4 g/dL (33-37); MCV 94.6 FL (81-99); MONO# 0.64 X1000 (0.11-0.59); MONO% 9.9 % (1.7-9.3); MPV 9.4 FL (7.4-10.4); NEUT# 2.16 X1000 (1.4-6.5); NEUT% 33.3 % (42.2-75.2); PLT 92 X1000 (130-400); RBC 3.36 XMIL (4.7-6.1); RDW 17.8 % (11.5-14.5); WBC 6.49 X1000 (4.8-10.8)
[2018-11-21 06:40] LABS: AGAP 11; BUN 19 mg/dL (8-22); CALCIUM 8.7 mg/dL (8.8-10.2); CHLORIDE 100 mmol/L (98-107); COSMO 283; CREATININE 0.9 mg/dL (0.7-1.2); ESTIMATED GFR > 60; GLUCOSE 92 mg/dL (70-104); POTASSIUM 2.9 mmol/L (3.5-5.1); SODIUM 141 mmol/L (136-145); TCO2 30 mmol/L (25-35)
[2018-11-21] MEDS ORDERED: KLOR-CON PO ONE (08:56)
[2018-11-21] MEDS: OXY IR PO PRN ×2 (09:34→16:37)
[2018-11-21] MEDS: COLACE PO SCH ×2 (09:35→20:52)
[2018-11-21] MEDS: ASPIRIN PO SCH (09:35)
[2018-11-21] MEDS: CORDARONE PO SCH (09:35)
[2018-11-21] MEDS: FOLIC ACID PO SCH (09:36)
[2018-11-21] MEDS: FERROUS SULFATE PO SCH (09:36)
[2018-11-21] MEDS: PATIENT'S OWN MED PO SCH ×2 (09:37→23:04)
[2018-11-21] MEDS: MIRALAX PO SCH (09:37)
[2018-11-21] MEDS: PERIDEX MT SCH ×2 (09:38→21:03)
--- NOTE | 2018-11-21 12:24 | PROGRESS NOTE ---
DATE: 11/21/2018 SUBJECTIVE: Don Person is an 88-year-old male with intertrochanteric hip fracture. He has no complaints. He has had minimal progress with physical therapy. OBJECTIVE: He appears to be much more alert today. His color is better. He does have a low potassium of 2.9 and his hemoglobin is 10.3. His hematocrit is 31.8. His wounds are clean, dry, and intact. His leg is neurovascularly intact. ASSESSMENT: Stable intertrochanteric hip fracture. PLAN: He can go to rehab when he is cleared medically. He is still hypokalemic, still has a urinary tract infection. He still has not had any progress really with physical therapy. I would at least like to see him be able to get up with therapy prior to going to rehab. Hopefully, he can go to rehab either tomorrow or Monday. cc: Toan Luo MD
--- NOTE | 2018-11-21 12:28 | PROGRESS NOTE ---
DATE: 11/21/2018 ADDENDUM REPORT SUBJECTIVE: Don Person continues to have oozing from his inferior and superior wounds. I looked at them with the nurse, so we were going to place compression dressings, sandbags, and ice and see if that does not stop the bleeding. I am also going to decrease his aspirin from 325 to 81 mg. He still has made minimal progress with physical therapy, and so we will keep him at least until tomorrow, and then hopefully he can go to rehabilitation later in the week. cc: Toan Luo MD
[2018-11-21] MEDS ORDERED: ROCEPHIN 1 GM in NS 50 ML IV SCH (13:00)
--- NOTE | 2018-11-21 14:20 | PROGRESS NOTE ---
DATE: 11/21/2018 SUBJECTIVE: This patient is resting comfortably in bed. No complaints today, but he is confused. He is oriented to person and date of . Hemoglobin improved after transfusion, but it looks like he is oozing from his wounds. Orthopedic Surgery on board. The dose of the aspirin has been decreased from 325 to 81, and for now, we will hold anticoagulation because of the bleeding and anemia. He is status post 2 PRBCs, but as soon as we can, we will put this patient on prophylactic anticoagulation. For DVT prophylaxis. He has been placed on knee-length stockings to both legs. OBJECTIVE: Vital Signs: Temperature 98.2 degrees, pulse 69, respiratory rate 18, blood pressure 112/59, oxygen saturation 97% on room air. HEENT: Head normocephalic, no trauma. PERRLA. Neck: Supple. No JVD. No masses. Central trachea. Chest: Clear to auscultation. No wheezing. No rales. Abdomen: Soft, nontender, nondistended. No hepatosplenomegaly. Extremities: Left wound at the level of the hip with a large bruise around the lesion. It is a little bit painful to palpation, and he is oozing a little bit of serosanguineous material. Neurological: The patient is alert. He is oriented x1 to person and date of . He is not oriented to place or time. He is following commands. LABORATORY: WBC 6.4, hemoglobin 10.3, hematocrit 31.8, platelets 92,000. Sodium 141, potassium 2.9, chloride 100, bicarbonate 30, BUN 19, creatinine 0.9 glucose 92, calcium 8.7. ASSESSMENT AND PLAN: 1. Left commuted communicated intertrochanteric hip fracture status post left long trochanteric fixation nail placement, postoperative day #6. Continue physical therapy. This patient should go to a rehabilitation center once he is clinically better. Orthopedic Surgery following this patient closely. He has been oozing from the wound. Hemoglobin and hematocrit more stable after transfusion. 2. Confusion. This patient has been confused on and off, probably because of his pain medication, and now he had a positive urine culture that showed gram-negative rods, I have placed this patient on ceftriaxone. We will monitor the sensitivity. 3. Anemia with folate deficiency. He had received 2 units of PRBCs yesterday, and we have started this patient on folic acid. 4. Acute kidney injury, resolved. 5. History of non-Hodgkin's lymphoma. Aware. Follow up with Oncology department post discharge from the hospital. 6. History of diastolic heart failure, stable. 7. Deep venous thrombosis prophylaxis. We will continue with knee-length stockings to both legs for now because his wound is having some oozing right now. 8. Gastrointestinal prophylaxis with proton pump inhibitor. 9. Urinary tract infection. We do have a positive culture that showed gram-negative wse. I have placed this patient on ceftriaxone. We will monitor the sensitivity. cc: Terry Grijalva MD
[2018-11-22] MEDS: GEODON IM PRN (04:15)
[2018-11-22] MEDS: TYLENOL PO SCH ×2 (04:16→14:13)
[2018-11-22] MEDS: STERILE WATER INJ. INJ PRN (04:17)
[2018-11-22 06:25] LABS: BASO# 0.01 X1000 (0.0-0.2); BASO% 0.2 % (0.0-0.8); EOS# 0.15 X1000 (0.0-0.7); EOS% 2.3 % (0.0-10.0); HEMATOCRIT 31.2 % (42.0-52.0); HEMOGLOBIN 9.9 g/dL (14.0-18.0); IMM GRAN# 0.15 X1000 (0.0-0.04); IMM GRAN% 2.3 % (0.0-0.5); LYMPH# 3.44 X1000 (1.2-3.4); LYMPH% 51.9 % (20.5-51.1); MCH 30.8 PG (27-31); MCHC 31.7 g/dL (33-37); MCV 97.2 FL (81-99); MONO# 0.52 X1000 (0.11-0.59); MONO% 7.8 % (1.7-9.3); MPV 10.4 FL (7.4-10.4); NEUT# 2.36 X1000 (1.4-6.5); NEUT% 35.5 % (42.2-75.2); PLT 95 X1000 (130-400); RBC 3.21 XMIL (4.7-6.1); RDW 18.7 % (11.5-14.5); WBC 6.63 X1000 (4.8-10.8)
[2018-11-22 07:08] LABS: AGAP 9; BUN 19 mg/dL (8-22); CALCIUM 8.3 mg/dL (8.8-10.2); CHLORIDE 104 mmol/L (98-107); COSMO 285; CREATININE 0.9 mg/dL (0.7-1.2); ESTIMATED GFR > 60; GLUCOSE 100 mg/dL (70-104); POTASSIUM 3.8 mmol/L (3.5-5.1); SODIUM 142 mmol/L (136-145); TCO2 29 mmol/L (25-35)
--- NOTE | 2018-11-22 08:20 | PROGRESS NOTE ---
DATE: 11/22/2018 SUBJECTIVE: Don Person is an 88-year-old male who has no complaints. He is doing much better. OBJECTIVE: He is a well-developed, well-nourished male. He is alert and cooperative with the exam. His wounds are healing nicely. There is still some mild drainage. His leg is neurovascularly intact. He has walked 30 feet with physical therapy. ASSESSMENT: Stable left hip. PLAN: He will continue working with therapy. I am okay with him going to rehab whenever he is cleared medically from an orthopedic standpoint. When he goes to rehab, he should have his mery removed in approximately a week from today. He can be weightbearing as tolerated. I would like to see him back in the office once he is discharged from rehab. cc: Toan Luo MD
[2018-11-22] MEDS: COLACE PO SCH (08:21)
[2018-11-22] MEDS: FOLIC ACID PO SCH (08:21)
[2018-11-22] MEDS: FERROUS SULFATE PO SCH (08:21)
[2018-11-22] MEDS: CORDARONE PO SCH (08:21)
[2018-11-22] MEDS ORDERED: ASPIRIN PO SCH (09:00)
--- NOTE | 2018-11-22 10:25 | PROGRESS NOTE ---
DATE: 11/22/2018 SUBJECTIVE: This patient is sitting at the bedside. He is completely alert and oriented. Family member is at the bedside. He is not complaining of any specific pain, just some discomfort and pain at the level of the left hip. Orthopedic surgery evaluated this patient and they believe that this patient can be discharged safely to a rehab center. OBJECTIVE: Vital Signs: Temperature 98.2 degrees, pulse 84, respiratory rate 22, blood pressure 129/66, oxygen saturation 99 on room air. HEENT: Head normocephalic. No trauma. PERRLA. Neck: Supple. No JVD. No masses. Central trachea. Chest: Clear to auscultation. No wheezing. No rales. Abdomen: Soft, nontender, nondistended. No hepatosplenomegaly. Extremities: Left wound at the level of the hip with a large bruise around the lesion. It is a little bit painful to palpation. I do not see any significant oozing today. Neurological Examination: The patient is alert and oriented x3. No focal deficits. Able to recognize family members at the bedside and following commands. Laboratory: WBCs 6.6, hemoglobin 9.9, hematocrit 31.2, platelets 95,000. Sodium 142, potassium 3.8, chloride 104, bicarbonate 29, BUN 19, creatinine 0.9, glucose 100, calcium 8.3. ASSESSMENT AND PLAN: 1. Left intertrochanteric hip fracture, status post left long trochanteric fixation nail placement, postoperative day #7. Will need to continue physical therapy. He will be discharged today to a rehab center. 2. Confusion, resolved. Likely a combination of surgery, pain medication, and urinary tract infection. Today, he looks much better. 3. Anemia with folic acid deficiency. Aware. Continue with the same management. He is getting ferrous sulfate and folic acid. 4. Acute kidney injury, resolved. 5. History of non-Hodgkin's lymphoma. Aware. Follow up with oncology department post discharge from the hospital. 6. History of diastolic heart failure, stable. 7. Deep vein thrombosis prophylaxis. Continue with knee length stockings to both legs. 8. Gastrointestinal prophylaxis with proton pump inhibitors. 9. Urinary tract infection. Continue with cephalosporins. 10. The patient is doing much better. He is not confused today. Family member is at the bedside. I answered all their questions. He will be discharged to a rehab center. cc: Terry Grijalva MD
--- NOTE | 2018-11-22 11:10 | DISCHARGE SUMMARY ---
ADMISSION DATE: 11/15/2018 DISCHARGE DATE: 11/22/2018 ADMISSION DIAGNOSIS: 1. Left hip fracture. 2. Paroxysmal atrial fibrillation. 3. Non-Hodgkin's lymphoma. DISCHARGE DIAGNOSIS: 1. Left hip fracture. 2. Paroxysmal atrial fibrillation. 3. Non-Hodgkin's lymphoma. 4. Urinary tract infection. CONSULTATIONS: Toan Luo MD with Orthopedic Surgery. DIAGNOSTIC PROCEDURES AND FINDINGS: Hip and pelvis x-ray on 11/15/2018 shows intertrochanteric, subtrochanteric fracture of the left femur. EKG 11/15/2018: Sinus rhythm, nonspecific T wave changes. Echocardiogram 11/16/2018: EF 65%, trivial valvular disease, no wall motion abnormalities. Chest x-ray 11/20/2018: Stable chest, fibrosis right costophrenic sulcus. SURGICAL PROCEDURES: Left long trochanteric fixation nail placement size 420 mm with 110 mm helical blade and two 5.0 distal locking screws size 50 and 58 mm in length by Dr. Luo on 11/15/2018. HOSPITAL COURSE: Mr. Person is an 88-year-old male with a history of paroxysmal atrial fibrillation and non-Hodgkin's lymphoma followed by Dr. Acuña, who was admitted with a mechanical trip and fall with left hip fracture. Due to the history of atrial fibrillation, we went and got an echocardiogram, which was negative for anything acute. Orthopedics proceeded with left hip nailing that was without complication. The patient did develop a urinary tract infection, which he has been appropriately started on antibiotics for. He was also noted to be iron deficient based on labs. He actually did require a blood transfusion during his admission. He got 3 units of PRBCs, which improved his hemoglobin and hematocrit, and he was placed on supplemental iron. Physical therapy was consulted along with case management/social work for rehab placement. He has reached maximum benefit of inpatient hospitalization and is now stable for discharge. DISCHARGE MEDICATIONS: Amiodarone 200 mg p.o. daily, aspirin 81 mg daily, Zydelig 150 mg p.o. b.i.d., Colace 100 mg p.o. b.i.d., iron sulfate 325 mg p.o. daily, folic acid 1 mg p.o. daily, Keflex 500 mg p.o. q.12, Tqsb-cj-Xtkrznel 30 mL p.o. daily as needed, MiraLAX 17 g daily, Tylenol 650 mg p.o. q.6 p.r.n. pain or fever, oxycodone IR 5 mg p.o. q.3 hours p.r.n. pain #20 tablets 0 refill. DISCHARGE LABS: WBC 6.63, hemoglobin 9.9, hematocrit 31.2, platelet count 95. Sodium 142, potassium 3.8, chloride 104, CO2 29, anion gap 9, BUN 19, creatinine 0.9, glucose is 100. Microbiology does show Enterobacter aerogenes urinary tract infection. DISCHARGE ACTIVITY: Per [facility]hab. DISCHARGE DIET: Heart healthy. DISPOSITION AND OTHER DISCHARGE INSTRUCTIONS: The patient is discharged to [facility]. He is to continue care under their direction. He is to continue all medications as directed, return to the ER or call 911 for worsening complaints or concerns. All questions answered. DISCHARGE TIME: Greater than 35 minutes. Dictated by MARTÍN Gupta for Terry Grijalva MD cc: MARTÍN Gupta MD Richard S. Sharp, MD
[2018-11-22 11:33] VITALS: BP 105/50
[2018-11-22] MEDS: PERIDEX MT SCH (12:05)
[2018-11-22] MEDS: MIRALAX PO SCH (12:05)
[2018-11-22] MEDS: PATIENT'S OWN MED PO SCH (12:22)
[2018-11-22] MEDS: NS 1,000 ML IV SCH (14:12)
== END 2018-11-22 14:54 | DRG 481 ==
LOC: P.ED 16:05 → 4N 23:12 → SUATTDRO 23:12 → 4N 23:58
PROVIDERS: ATTEND Internal Medicine
CPT/HCPCS: 36430; 51702; 71010; 71045; 73502; 76000; 80048; 80053; 80069; 81001; 82607; 82728; 82746; 83540; 83550; 84443; 85014; 85018; 85025; 85610; 85730; 86850; 86900; 86901; 86920; 87077; 87088; 87186; 93005; 93306; 94760; 94761; 94799; 96361; 96374; 96375; 96376; 97110; 97116; 97161; 97530; 99285; A9270; C8929; J0690; J0696; J1100; J1650; J1885; J1940; J2060; J2270; J2405; J3486; J7030; J7040; P9016; Q9957

== ENCOUNTER 2019-01-15 09:01 | Inpatient (IN) ==
[2019-01-15] MEDS ORDERED: CLINDAMYCIN 600 MG/D5W 600 MG/50 ML IVPB IV ONE (10:53)
[2019-01-15] MEDS ORDERED: NS 500 ML IV ONE (10:53)
--- NOTE | 2019-01-15 11:05 | PROVIDER DOCUMENTATION ---
HPI-Fever - General Chief Complaint: B/P Problems Stated Complaint: LOW BP (DR CHAHAL), YESTERDAY HIGH FEVER Time Seen by Provider: 01/15/19 10:04 Source: patient, family (Son) Allergies/Adverse Reactions: Patient Allergies Allergy/AdvReac Type Severity Reaction Status Date / Time haloperidol [From Haldol] AdvReac Unknown Verified 11/15/18 16:22 Home Medications: Home Medication List Medication Instructions Recorded Confirmed Last Taken Type Amiodarone [Cordarone] 200 mg PO DAILY 06/01/13 11/15/18 04/30/17 History Aspirin 81 mg PO DAILY 04/30/17 11/15/18 07/01/18 History Idelalisib [Zydelig] 150 mg PO BID 06/27/18 11/15/18 07/05/18 07:00 History Docusate Sodium [Colace] 100 mg PO BID #40 capsule 07/06/18 11/15/18 Unknown Rx Acetaminophen [Tylenol] 650 mg PO Q6H PRN PRN tab 11/22/18 Unknown Rx Cephalexin [Keflex] 500 mg PO Q12H #12 cap 11/22/18 Unknown Rx Ferrous Sulfate 325 mg PO DAILY #60 tab 11/22/18 Unknown Rx Folic Acid 1 mg PO DAILY #60 tab 11/22/18 Unknown Rx Magnesium Hydroxide [Milk of 30 ml PO DAILY PRN PRN udc 11/22/18 Unknown Rx Magnesia] Oxycodone I.r. [Oxy Ir] 5 mg PO Q3H PRN PRN #20 tab 11/22/18 Unknown Rx Polyethylene Glycol 3350 [Miralax] 17 gm PO DAILY powder, packet 11/22/18 Unknown Rx - History of Present Illness-Fever Nature of Presenting Problem: Patient is an 88 yowm who presents to the ED with his son who reports left knee pain and swelling and "sore" to heel of left foot x 2-3 weeks. States, "He was walking but he hasn't walked on it since it started swelling and hurting. Reports old injury to affected knee. Also states Home Health nurse came yesterday and pt had fever of 103 and low BP. Denies cough, n/v/d, SOB, chest pain, or any other symptoms. 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 Oncologist is Dr. Cannon. Pt is non-toxic in appearance. Review of Systems - Adult - REVIEW OF SYSTEMS - ADULT Constitutional: reports: fever Eyes: reports: no symptoms reported Ears, Nose, Mouth & Throat: reports: no symptoms reported Cardiovascular: reports: no symptoms reported Respiratory: reports: no symptoms reported Gastrointestinal: reports: no symptoms reported Genitourinary: reports: no symptoms reported Musculoskeletal: reports: see HPI, other (left knee pain/swelling). denies: back pain, neck pain Integumentary: reports: see HPI, skin sores/ulcer Neurological: reports: no symptoms reported Psychiatric: reports: no symptoms reported Endocrine: reports: no symptoms reported Hematologic/Lymphatic: reports: no symptoms reported Allergic/Immunologic: reports: no symptoms reported All Other Systems: Reviewed and Negative Past History - Adult - PAST MEDICAL HISTORY-ADULT Review of Records: reports: Old Records Reviewed, Nursing Assessment Review, Medications Reviewed, Social history reviewed & non-contributory. Major Childhood Illnesses: reports: denies history Cardiovascular: reports: denies history Respiratory: reports: denies history Gastrointestinal: reports: denies history Obstetrical/Gynecological: reports: denies history Genitourinary: reports: denies history Musculoskeletal: reports: denies history Neurological: reports: denies history Endocrine/Immune: reports: Lymphoma, thyroid disorder Other Conditions: reports: denies history - PRIOR SURGERIES/PROCEDURES Surgical/Procedure History: reports: reviewed, not pertinent - IMMUNIZATION STATUS Childhood Immunizations: See Nurse Assessment Flu Vaccine: See Nurse Assessment - FAMILY HISTORY Family History: reviewed, not pertinent - SOCIAL HISTORY Smoking: quit greater than 1 year Physical Exam-General - PHYSICAL EXAM-ADULT Initial Vital Signs Reviewed: Yes - CONSTITUTIONAL General Appearance: alert, no apparent distress. negative: lethargic, slow to respond - EYES Eyes: PERRL/EOMI, pink conjunctivae - HEAD, EARS, NOSE, MOUTH & THROAT HENMT: normocephalic/atraumatic, moist mucous membranes - NECK Neck: full range of motion, supple, normal inspection - RESPIRATORY Respiratory: chest non-tender, no pleuratic chest pain, no respiratory distress, no accessory muscle use, crackles (At bilateral lung bases) - CARDIOVASCULAR Cardiovascular: normal peripheral pulses, regular rate, rhythm, no edema, no gallop, no JVD, systolic murmur (Grade 3) - GASTROINTESTINAL (ABDOMEN) Abdominal Exam: normal bowel sounds, non tender, soft, no pulsatile mass. negative: distended, guarding, rigid, rebound, tenderness, hernia, mass - MUSCULOSKELETAL Back Exam: normal inspection Extremity: normal capillary refill, swelling (Left knee). negative: pulse deficit, pedal edema, slow capillary refill - SKIN Integumentary: normal color, warm/dry, other (Wound measuring the circumference of a nickel noted to heel of left foot. Purulent exudate noted to wound dressing.). negative: cyanosis, diaphoresis, jaundice, mottled, pallor - NEUROLOGIC Neurologic: grossly normal, no motor/sensory deficits - PSYCHIATRIC Psych/Mental Status: normal mood/affect, normal thought content, normal thought process, other (Pt alert to self and place, son states pt is at baseline.) Progress - PLAN OF CARE/RESULTS Progress/Plan/Lab Results: Vital Signs - 8 hr 01/15/19 09:03 01/15/19 10:02 01/15/19 10:33 Temperature 98.9 F Pulse Rate 90 92 H 94 H Respiratory Rate 20 20 20 Blood Pressure 123/72 121/71 119/51 O2 Sat by Pulse Oximetry 97 95 94 L 01/15/19 11:01 Temperature Pulse Rate 95 H Respiratory Rate 22 Blood Pressure 127/59 O2 Sat by Pulse Oximetry 89 L Laboratory Results - last 24 hr 01/15/19 01/15/19 01/15/19 09:25 09:25 09:25 WBC 10.70 RBC 3.65 L Hgb 10.9 L Hct 35.7 L MCV 97.8 MCH 29.9 MCHC 30.5 L RDW Std Deviation 16.8 H Plt Count 141 MPV 11.1 H Immature Gran % (Auto) 1.2 H Neut % (Auto) 29.7 L Lymph % (Auto) 62.0 H [place] % (Auto) 6.4 Eos % (Auto) 0.2 Baso % (Auto) 0.5 Immature Gran # (Auto) 0.13 H Neut # (Auto) 3.18 Lymph # (Auto) 6.63 H [place] # (Auto) 0.69 H Eos # (Auto) 0.02 Baso # (Auto) 0.05 PT 13.4 INR 0.95 Specimen Type Sample Site pH pCO2 pO2 HCO3 Base Excess Oxyhemoglobin ABG O2 Sat (Calculated) ABG O2 Saturation ABG Carboxyhemoglobin ABG Methemoglobin Yohannes Test A-a O2 Difference Total Hemoglobin Lactate Blood Gas Modality FiO2 % Plasma Lactate 5.7 H Urine Source Urine Color Urine Turbidity Urine pH Ur Specific [place] Urine Protein Ur Glucose (Stick) Ur Ketones (Stick) Urine Blood Urine Nitrite Urine Bilirubin Urobilinogen Dipstick Urine Leukocytes 01/15/19 01/15/19 12:00 14:08 WBC RBC Hgb Hct MCV MCH MCHC RDW Std Deviation Plt Count MPV Immature Gran % (Auto) Neut % (Auto) Lymph % (Auto) [place] % (Auto) Eos % (Auto) Baso % (Auto) Immature Gran # (Auto) Neut # (Auto) Lymph # (Auto) [place] # (Auto) Eos # (Auto) Baso # (Auto) PT INR Specimen Type ARTERIAL Sample Site R RADIAL pH 7.62 H* pCO2 40 pO2 117 H HCO3 39.1 H Base Excess 18.2 H Oxyhemoglobin 95.4 ABG O2 Sat (Calculated) 13.2 L ABG O2 Saturation 99.5 ABG Carboxyhemoglobin 2.70 H ABG Methemoglobin 1.4 Yohannes Test YES A-a O2 Difference 33.0 Total Hemoglobin 9.7 L Lactate 1.50 Blood Gas Modality CANNULA FiO2 % 28.0 Plasma Lactate Urine Source CLEAN CATCH Urine Color YELLOW Urine Turbidity CLEAR Urine pH 6.0 Ur Specific [place] 1.014 Urine Protein 30 A Ur Glucose (Stick) NEGATIVE Ur Ketones (Stick) NEGATIVE Urine Blood LARGE A Urine Nitrite NEGATIVE Urine Bilirubin NEGATIVE Urobilinogen Dipstick 3 A Urine Leukocytes NEGATIVE Orders Category Date Time Status Cardiac Monitoring DIRECTED Care 01/15/19 10:33 IV Insertion ORDERED Care 01/15/19 10:33 Completed Notify MD of + Sepsis Screen NOW Care 01/15/19 10:33 Notify Physician As Ordered Care 01/15/19 10:33 Wound Care/ET Consult Routine Cons 01/15/19 14:01 Active CHEST-1 VIEW [RAD] Stat Exams 01/15/19 10:33 Completed FOOT COMPLETE LEFT [RAD] Stat Exams 01/15/19 10:52 Completed KNEE 3 VIEWS LEFT [RAD] Stat Exams 01/15/19 10:52 Completed ABG [RESP] Routine Lab 01/15/19 12:00 Completed BLOOD CULTURE [BLDCUL] Stat Lab 01/15/19 09:43 Results CBC WITH DIFF [HEME] Stat Lab 01/15/19 09:25 Completed CK PROFILE [SP CHEM] Stat Lab 01/15/19 09:25 Received CK PROFILE [SP CHEM] Stat Lab 01/15/19 10:33 Ordered COMPREHENSIVE METABOLIC PANEL [CHEM] Stat Lab 01/15/19 09:25 Received COMPREHENSIVE METABOLIC PANEL [CHEM] Stat Lab 01/15/19 10:33 Ordered LACTATE, PLASMA [CHEM] Lab 01/15/19 14:01 Received LACTATE, PLASMA [CHEM] Lab 01/15/19 16:45 Uncollected LACTATE, PLASMA [CHEM] Q3H Lab 01/15/19 09:25 Completed MAGNESIUM [CHEM] Stat Lab 01/15/19 09:25 Received PROTIME WITH INR [COAG] Stat Lab 01/15/19 09:25 Completed PROTIME WITH INR [COAG] Stat Lab 01/15/19 10:33 Ordered PTT [COAG] Stat Lab 01/15/19 10:33 Ordered ROUTINE CULTURE [RM] Routine Lab 01/15/19 12:12 Received TROPONIN T Stat Lab 01/15/19 09:25 Received TROPONIN T Stat Lab 01/15/19 10:33 Ordered TSH Stat Lab 01/15/19 09:25 Received URINALYSIS W/POSS RFLX CULT [URINALYSIS] Stat Lab 01/15/19 14:08 Results 0.9% Sodium Chloride Inj [Ns] 2,230 ml Med 01/15/19 11:50 Discontinued IV 999 mls/hr 0.9% Sodium Chloride Inj [Ns] 500 ml Med 01/15/19 10:53 Discontinued IV 999 mls/hr Clindamycin 600 mg/D5w Med 01/15/19 10:53 Discontinued 600 mg in 50 ml IV NOW Piperacillin/Tazobactam [Zosyn] 3.375 gm Med 01/15/19 13:05 Discontinued 0.9% Sodium Chloride Inj [Ns] 50 ml IV NOW Oxygen Device Stat Oth 01/15/19 10:33 Active EKG [EKG] Stat Ther 01/15/19 09:15 Draft Pt and family in agreement with admission plan. Result Diagrams: 01/15/19 09:25 - EKG 1 Time of EKG reading by physician:: 09:17 EKG Read and Signed by:: Mishel Ramos EKG Interpretation (*Must complete 3 of following elements*): Abnormal Rate: 89 Rhythm: SR with 1 st degree AV block ST Wave: normal - XRAY 1 XRAY Study: Chest (IMPRESSION: No change from prior. Electronically signed by Curz Sawant 01/15/2019 11:32 AM) 2 XRAY: Left XRAY Study: Foot (IMPRESSION: Nonspecific findings. Electronically signed by Cruz Sawant 01/15/2019 11:28 AM) 3 XRAY: Left XRAY Study: Knee (IMPRESSION: Indeterminate superficial knee soft tissue swelling as well as a rather large nonspecific joint effusion. Advanced osteoarthritis. Electronically signed by Cruz Sawant 01/15/2019 11:27 AM) - CONSULTS/PCP/HOSPITALIST Notification #1 *Consult/PCP/Hospitalist*: SAM Segura [employer] HEL[employer] Time Discussed: 13:05 Reason/Comments: admission- sepsis, foot cellulitis Consult Disposition: Admit Departure - Departure Date of Disposition Decision: 01/15/19 Time of Disposition Decision: 13:05 DIAGNOSIS: Cellulitis Qualifiers: Site of cellulitis: extremity Site of cellulitis of extremity: lower extremity Laterality: left Qualified Code(s): L03.116 - Cellulitis of left lower limb Sepsis Qualifiers: Sepsis type: sepsis due to unspecified organism Qualified Code(s): A41.9 - Sepsis, unspecified organism Disposition: ADMITTED INPATIENT 09 Certified Medical Emergency: Emergent Condition: Serious Referrals and Follow-Ups: [facility] [Outside] - Critical Care Note This patient required my direct & personal management of CC.: No Attestation - Physician/ RONALD Attestation Patient care was provided by Advanced Practice Provider:: Yes Advanced Practice Provider:: Mellisa Dunbar Advanced Practice Provider documentation review:: The Mid-level provider documentation, treatment plan and medical decision making was reviewed by the physician who agrees with all treatment and medical decision making by the MLP. The physician spent face to face time with patient:: No Advanced Practice Provider documentation review:: Supervising physician onsite and consulted in the evaluation and care of this patient. The physician did not have a face to face encounter with the patient. Sepsis: Tissue Perfusion Assmt - Physical Exam Assessment Date: 01/15/19 Time Assessment Initialized: 11:51 Vital Signs: Last Vital Signs Temp 98.9 F 01/15/19 09:03 Pulse 95 H 01/15/19 11:01 Resp 22 01/15/19 11:01 BP 127/59 01/15/19 11:01 Pulse Ox 89 L 01/15/19 11:01 Height 6 ft 2 in Weight 202 lb Lung Sounds:: crackles Heart Sounds:: Murmur Capillary Refill Time: Less Than 2 Seconds Skin Exam:: pink - Impression Impression:: Tissue Perfusion Adequate - Plan Plan:: See Orders
[2019-01-15 11:07] LABS: BASO# 0.05 X1000 (0.0-0.2); BASO% 0.5 % (0.0-0.8); EOS# 0.02 X1000 (0.0-0.7); EOS% 0.2 % (0.0-10.0); HEMATOCRIT 35.7 % (42.0-52.0); HEMOGLOBIN 10.9 g/dL (14.0-18.0); IMM GRAN# 0.13 X1000 (0.0-0.04); IMM GRAN% 1.2 % (0.0-0.5); LYMPH# 6.63 X1000 (1.2-3.4); MCH 29.9 PG (27-31); MCHC 30.5 g/dL (33-37); MCV 97.8 FL (81-99); MONO# 0.69 X1000 (0.11-0.59); MONO% 6.4 % (1.7-9.3); MPV 11.1 FL (7.4-10.4); NEUT# 3.18 X1000 (1.4-6.5); NEUT% 29.7 % (42.2-75.2); PLT 141 X1000 (130-400); RBC 3.65 XMIL (4.7-6.1); RDW 16.8 % (11.5-14.5)
--- NOTE | 2019-01-15 11:29 | Diag Imaging Result Doc PS360 ---
KNEE 3 VIEWS LEFT - 01/15/2019 INDICATION: left knee swelling/pain TECHNIQUE: Three views COMPARISON: None FINDINGS: There is an interlocking femoral wes in good position. No fractures or bony erosions. There is severe osteoarthritis of the knee worst at the medial joint compartment. . There is a rather large nonspecific joint effusion. There is also some anterior medial knee soft tissue swelling that is indeterminate IMPRESSION: Indeterminate superficial knee soft tissue swelling as well as a rather large nonspecific joint effusion. Advanced osteoarthritis. Electronically signed by Cruz Sawant 01/15/2019 11:27 AM
--- NOTE | 2019-01-15 11:31 | Diag Imaging Result Doc PS360 ---
FOOT COMPLETE LEFT - 01/15/2019 INDICATION: cellulitis, fever TECHNIQUE: Three views COMPARISON: None FINDINGS: There are severe hammertoe deformities. There is severe osteopenia. There is nonspecific mild dorsal foot soft tissue swelling. No fractures or bony erosions. No soft tissue gas or soft tissue foreign body. IMPRESSION: Nonspecific findings. Electronically signed by Cruz Sawant 01/15/2019 11:28 AM
--- NOTE | 2019-01-15 11:35 | Diag Imaging Result Doc PS360 ---
CHEST-1 VIEW - 01/15/2019 INDICATION: fever, hypoxia COMPARISON: 11/20/2018 FINDINGS: Stable cardiomegaly and pulmonary vascular congestion. No infiltrates or edema. Stable dense calcified granulomas in the left midlung and left hilum. No pneumothorax or pleural effusion. IMPRESSION: No change from prior. Electronically signed by Cruz Sawant 01/15/2019 11:32 AM
[2019-01-15] MEDS ORDERED: SODIUM CHLORIDE IV ONE (11:50)
[2019-01-15 12:06] LABS: ALLEN TEST YES; BE 18.2 mmoll (-3.0-3.0); BLOOD TYPE ARTERIAL; HCO3-(ACT) 39.1 mmoll (20.0-26.0); METHB 1.4 % (0.0-1.5); O2(CT) 13.2 mL/dL (15.0-23.0); O2HB 95.4 % (95.0-99.0); PCO2(98.6) 40 mmHg (35-45); PO2(98.6) 117 mmHg (60-100); SAMPLE BLOOD; SAO2 99.5 % (95.0-100.0); THB 9.7 g/dL (11.5-17.4)
[2019-01-15 12:09] LABS: MODALITY CANNULA; pH(98.6) 7.62 (7.35-7.45)
[2019-01-15] MEDS ORDERED: ZOSYN 3.375 GM in NS 50 ML IV ONE (13:05)
--- NOTE | 2019-01-15 13:06 | EKG Report ---
Test Performed on : 01/15/2019 09:15:25 AM Test Reason : ED. NO order in [place] Blood Pressure : / mmHG Vent. Rate : 089 BPM Atrial Rate : 089 BPM P-R Int : 272 ms QRS Dur : 150 ms QT Int : 556 ms P-R-T Axes : 096 -77 050 degrees QTc Int : 676 ms Sinus rhythm. with 1st degree AV block. Right bundle branch block Left anterior fascicular block Bifascicular block Septal infarct , age undetermined Abnormal ECG When compared with ECG of 15-NOV-2018 19:12, Sinus rhythm. has replaced Junctional rhythm. (RBBB and left anterior fascicular block) is now present Unconfirmed Result
[2019-01-15 14:23] LABS: URINE SOURCE CLEAN CATCH
[2019-01-15 14:25] LABS: INR 0.95; PROTIME 13.4 Seconds (11.0-16.0)
[2019-01-15 14:25] LABS: BILIRUBIN URINE NEGATIVE (NEGATIVE); COLOR YELLOW; GLUCOSE URINE NEGATIVE (NEGATIVE); KETONE URINE NEGATIVE (NEGATIVE); LEUKOCYTES URINE NEGATIVE (NEGATIVE); NITRITE URINE NEGATIVE (NEGATIVE); PROTEIN URINE 30 mg/dL (NEGATIVE); SP GRAVITY URINE 1.014; TURBIDITY URINE CLEAR (CLEAR); UROBILINOGEN URINE 3 mg/dL (NORMAL)
[2019-01-15 14:29] LABS: ALB/GLOB RATIO 1.3; ALBUMIN 3.1 g/dL (3.5-5.0); CREATININE 1.4 mg/dL (0.7-1.2); MAGNESIUM 1.3 mg/dL (1.5-2.7); POTASSIUM 2.6 mmol/L (3.5-5.1); TOTAL BILIRUBIN 2.23 mg/dL (0.20-1.00); TOTAL PROTEIN 5.5 g/dL (6.3-8.3)
[2019-01-15] MEDS ORDERED: KCL IV ONE (14:42)
[2019-01-15] MEDS ORDERED: MAGNESIUM SULFATE IV ONE (14:42)
[2019-01-15] MEDS ORDERED: NS IV ONE (14:42)
[2019-01-15] MEDS ORDERED: ASPIRIN PO ONE (15:02)
[2019-01-15 15:03] LABS: BLOOD URINE MODERATE (NEGATIVE); UR EPITHELIAL CELLS <10 /HPF (<10); URINE BACTERIA NEGATIVE /HPF; URINE RBC TNTC /HPF (<10); URINE WBC <10 /HPF (<10)
[2019-01-15] MEDS ORDERED: ZOFRAN IV PRN (15:07)
[2019-01-15 15:49] LABS: BASO# 0.01 X1000 (0.0-0.2); BASO% 0.2 % (0.0-0.8); HEMATOCRIT 29.8 % (42.0-52.0); HEMOGLOBIN 9.2 g/dL (14.0-18.0); IMM GRAN# 0.05 X1000 (0.0-0.04); IMM GRAN% 0.8 % (0.0-0.5); LYMPH% 56.4 % (20.5-51.1); MCH 30.2 PG (27-31); MCHC 30.9 g/dL (33-37); MCV 97.7 FL (81-99); MONO# 0.52 X1000 (0.11-0.59); MONO% 8.2 % (1.7-9.3); MPV 11.3 FL (7.4-10.4); NEUT% 34.4 % (42.2-75.2); PLT 96 X1000 (130-400); RBC 3.05 XMIL (4.7-6.1); RDW 16.7 % (11.5-14.5); WBC 6.38 X1000 (4.8-10.8)
--- NOTE | 2019-01-15 15:56 | EKG Report ---
Test Performed on : 01/15/2019 2:44:31 PM Test Reason : elevated troponin Blood Pressure : / mmHG Vent. Rate : 062 BPM Atrial Rate : 061 BPM P-R Int : 000 ms QRS Dur : 164 ms QT Int : 706 ms P-R-T Axes : 000 -58 -06 degrees QTc Int : 716 ms Sinus rhythm. with AV dissociation. and Wide QRS rhythm. Right bundle branch block Left anterior fascicular block Bifascicular block Cannot rule out Inferior infarct (masked by fascicular block?) , age undetermined Abnormal ECG When compared with ECG of 15-JAN-2019 14:29, (Unconfirmed) Wide QRS rhythm. has replaced Sinus rhythm. Vent. rate has decreased BY 104 BPM Unconfirmed Result
[2019-01-15 16:17] LABS: ALB/GLOB RATIO 1.1; ALBUMIN 2.3 g/dL (3.5-5.0); CALCIUM 7.8 mg/dL (8.8-10.2); CREATININE 1.2 mg/dL (0.7-1.2); TOTAL BILIRUBIN 1.58 mg/dL (0.20-1.00); TOTAL PROTEIN 4.3 g/dL (6.3-8.3)
[2019-01-15 16:18] LABS: POTASSIUM 2.1 mmol/L (3.5-5.1)
[2019-01-15] MEDS ORDERED: KLOR-CON PO ONE (16:20)
--- NOTE | 2019-01-15 16:47 | CARDIOLOGY CONSULTATION ---
DATE: 01/15/2019 REASON FOR CONSULTATION: Cardiology was consulted for abnormal troponin. Subsequent troponin was normal. HISTORY OF PRESENT ILLNESS: Mr. Don Person is an 88-year-old, gentleman, who was brought to the emergency room by his son, as home health nurses found him to be having low blood pressure and swelling around his left knee and weakness. Patient denies chest pain. He has had an extensive history as below. He underwent surgery on 11/15/2018 for left committed intertrochanteric hip fracture, and he underwent surgery with a left long trochanteric fixation nail placement. Patient from a cardiac standpoint has history of diastolic heart failure, atrial fibrillation, and also has non-Hodgkin lymphoma. The patient had not noticed any fevers or chills. There is no orthopnea. He has chronic shortness of breath, which is stable. REVIEW OF SYSTEM: A 14-point review of systems was done. Gastrointestinal System: There is no history of nausea/vomiting or diarrhea. There is no history of hematemesis or melena. Central nervous system: No focal weakness to suggest a CVA or TIA. PAST MEDICAL/SURGICAL HISTORY: 1. History of paroxysmal atrial fibrillation. 2. Non-Hodgkin lymphoma. 3. Hypertension. 4. History of diastolic heart failure. 5. Last stress test in 2018: No significant changes. 6. Last echocardiogram on 11/16/2018 revealed ejection fraction of 45% with left ventricular hypertrophy with mitral annular calcification with mild mitral regurgitation. There is no aortic stenosis or regurgitation. Ascending aorta was mildly dilated. 7. History of anxiety disorder and depression. 8. Cholecystectomy. 9. Left knee surgery. 10. Right inguinal herniorrhaphy. 11. Cardioversion in 2010. MEDICATION: His home medications need to be reconciled. PHYSICAL EXAMINATION: On examination, blood pressure was 127/59. First and second heart sounds were heard. There was faint murmur. Respiratory system examination revealed distant breath sounds. Normal air entry. Abdomen was soft, nontender. Bowel sounds heard. Examination of his extremities revealed he had a nonhealing ulcer on his left heel. In addition, there was swelling around his left knee with mild edema. DIAGNOSTIC STUDIES: Electrocardiogram revealed normal sinus rhythm, right bundle branch block. No acute ST elevations noted. ASSESSMENT AND PLAN: 1. Mr. Don Person is an 88-year-old gentleman with history of atrial fibrillation in the past, has had frequent falls, was recently admitted, underwent the left hip surgery for intertrochanteric fracture, has history of hypertension, unsteady gait, non-Hodgkin lymphoma. Was noted to have low blood pressure and weakness. The patient denies any chest pain. His cardiac enzymes revealed 1st troponin was borderline abnormal; however, the 2nd troponin level done 6 hours later was completely normal. He has a repeat creatinine was 1.2 and severe hypokalemia with a potassium of 2.1. From a cardiac standpoint, the patient denies any chest pain. Recent echocardiogram was normal. His abnormal troponin could be multifactorial, and he has an abnormal D-dimer. Has been bedridden and he could well have pulmonary embolism. Given the abnormal D-dimer, we will set him up to undergo a CT angiogram of his lungs. 2. From a cardiac standpoint, I have not made any other changes. We will get serial cardiac enzymes. Continue with his home medications. Again, this needs to be reconciled. I do not have the current medications at the present time. 3. He has swelling in his knee as well as a nonhealing ulcer on his left foot. Wound Care nurse has been consulted. I am not sure whether there is associated infection or not in his left knee. 4. His last echocardiogram revealed ejection fraction of 65%. This was on 11/16/2018. He has history of having had atrial fibrillation; however, currently he is in sinus rhythm. He underwent cardioversion in 2011. From a cardiac standpoint, we will manage him medically. Thank you for the consult. We will follow hospital course. cc: Javier Crisostomo MD
--- NOTE | 2019-01-15 18:19 | HISTORY AND PHYSICAL ---
CHIEF COMPLAINT: Left knee pain, left foot sore. Temperature of 103 and low blood pressure. HISTORY OF PRESENT ILLNESS: This is an 88-year-old gentleman with a history of paroxysmal atrial fibrillation, non-Hodgkin's lymphoma with recent repair of a left femur fracture. He presents to the emergency room by his son who states that he was evaluated by his home health nurse yesterday and found to have low blood pressure, swelling around his left knee and a fever of reported 103 at one time 104 another. The patient refused to come to the emergency room last night, but this morning his son insisted and therefore he did come for evaluation. He underwent repair of left comminuted intertrochanteric hip fracture on November 15 with nailing. He refused to go to rehab. He went home with home physical therapy and home health. He does state that he has been sedentary a great deal of this time. He denied any chest pain or shortness of breath, any orthopnea, any fevers or chills. He does have chronic shortness of breath. He states this is unchanged. PAST MEDICAL HISTORY: 1. Paroxysmal atrial fibrillation. 2. Non-Hodgkin's lymphoma. 3. Hypertension. 4. Diastolic heart failure. 5. History of anxiety and depression. 6. Cholecystectomy. 7. DC cardioversion in 2010 secondary to atrial fibrillation. 8. Alcohol use. PAST SURGICAL HISTORY: Right inguinal hernia repair, left knee surgery and left intertrochanteric nailing. HOME MEDICATIONS: A list will be obtained by the nursing staff and once verified, will review and restart as appropriate. ALLERGIES: Haldol. SOCIAL HISTORY: He lives at home with his . He does have a son and [id number] that are close by and is active in his care as he will allow. REVIEW OF SYSTEMS: Discussed with patient with pertinent positives stated in the HPI. He denied any syncope, dizziness, any chest pain or palpitations, shortness of breath, cough, fever, chills, night sweats, any nausea, vomiting, diarrhea, constipation, black or bloody vomitus or stools, any hematuria, dysuria, frequency, urgency. PHYSICAL EXAMINATION: GENERAL: This is an 88-year-old gentleman who is lying in the bed in the emergency room in no distress. VITAL SIGNS: Blood pressure is 127/60 with heart rate of 95, respirations are 20, temperature is 98.9 with room air sats of 88-89% and sats of 94-95% on 2 L nasal cannula. CARDIOVASCULAR: Regular rate and rhythm. S1 and S2 appreciated. He does have edema to his left leg from just above the knee down with a nonhealing ulcer to his left heel. He has no right-sided edema. He does have a faint murmur, is about 1/6. PULMONARY: Breath sounds are clear with no increased work of breathing noted. Chest does rise and fall symmetrically with respiration. GASTROINTESTINAL: Abdomen is soft, nontender, nondistended. Bowel sounds in all 4 quadrants. NEUROLOGIC: He is alert. He is oriented. SKIN: Warm and dry with bruises in various stages noted to all 4 extremities. He does have scabbing noted to his left knee. His elbows, he has got redness to the sacral area and midback. Left heel has a nonhealing ulcer. Culture was sent from the emergency room. LABS: WBC is 10.7 with hemoglobin of 10, hematocrit 35.7, and platelets of 141,000. INR is 0.95, with a D-dimer of 7.6. Sodium is 146, potassium 2.6, BUN 17, creatinine 1.4 with a glucose of 120. Magnesium is 1.3. Troponin is 0.134. Urinalysis: A voided specimen reveals moderate blood with less than 10 white blood cells, too numerous to count red blood cells, and less than 10 epithelial cells. Blood cultures and urine cultures are pending. Chest x-ray reveals cardiomegaly and pulmonary vascular congestion, stable. No infiltrates or edema. Stable dense calcified granulomas in the left mid lung and left hilum. Left foot x-ray reveals severe hammertoe deformities, severe osteopenia. There is nonspecific mid dorsal foot soft tissue swelling. No fractures or bony erosions. No soft tissue gas or soft- tissue foreign body. Left knee reveals indeterminate superficial knee, soft tissue swelling. There is a large nonspecific joint effusion and advanced osteoarthritis. EKG shows normal sinus rhythm with a right bundle branch block. ASSESSMENT AND PLAN: This is an 88-year-old gentleman with a history of atrial fibrillation, frequent falls and recent left hip surgery who presents after having been found having a temperature and low blood pressure yesterday by his home health nurse. 1. Elevated troponin with a new right bundle branch block. Will repeat his cardiac enzymes and troponin. Will consult Cardiology. Will continue serial cardiac enzymes. 2. Elevated D-dimer. CTA of the lungs as well as bilateral lower extremity Doppler will be ordered. 3. Recent left hip nailing. Aware. 4. Left knee edema. 5. Nonhealing ulcer to left foot. Culture was obtained in the emergency room. Wound Care will be consulted and patient has been started on Zosyn and Zyvox. 6. History of atrial fibrillation. At present, the patient is in sinus rhythm. We will have him on telemetry and continue to monitor. 7. History of non-Hodgkin's lymphoma. Aware. 8. Chronic alcohol use. The family states that they removed all the alcohol from the house within the last 3 weeks. They feel certain the patient has unable to obtain any further, but will still continue to monitor. 9. Further treatments pending discussion with Dr Egan and hospital course. Patient seen and examined by me face to face, all the laboratory, vitals signs, images were reviewed, patient presented with signs of left heel ulcer infection, left knee swelling, and some new EKG changes but no chest pain, patient also has elevated D dimer, we need to rule out DVT, he has a history of left hip surgery a few weeks ago, I do not think he has an acute coronary syndrome, case discussed with the son at the bedside, this patient basically is not walking, specially after the surgery, he also has dementia, will be full code, Cardiology consult, he will be admitted to the CIC unit, telemetry, I agree with the [employer] OFFICER's assessment and plan, Terry Crawford MD. Dictated by MARTÍN Pak for Terry Grijalva MD cc: MARTÍN Pak MD MTDD
[2019-01-15] MEDS: LOVENOX SUBQ SCH (19:50)
[2019-01-15] MEDS: ZYVOX 600 MG/D5W 600 MG/300 ML IVPB IV SCH (19:50)
[2019-01-15] MEDS: ZOSYN 3.375 GM in NS 50 ML IV SCH (22:05)
--- NOTE | 2019-01-15 22:07 | Diag Imaging Result Doc PS360 ---
EXAM: CT ANGIOGRM PULMONARY ARTERIES INDICATION: SOB/HI D-D TECHNIQUE: This exam was performed using automated exposure control, adjustment of mA or kV according to patient size, and/or use of iterative reconstruction technique. Thin section axial images and 3-D MIPS were obtained. COMPARISON: Conventional CT of the chest dated 06/02/2016 FINDINGS: There is no evidence of pulmonary embolism. There is extensive aortic atherosclerotic calcification. There is no evidence of thoracic aortic aneurysm or dissection. There is cardiomegaly. There is coronary artery calcification. There are calcified mediastinal and hilar lymph nodes indicating prior granulomatous disease. There are calcified pleural plaques at the right lower lung zone. There is mild subsegmental atelectasis at both lung bases. There are a view small groundglass opacities in the left upper lobe that are nonspecific and may represent focal mild pneumonitis. There is no significant pleural fluid collection and no pneumothorax. Limited views of the upper abdomen are essentially unremarkable. IMPRESSION: 1.A few mild groundglass opacities in the left upper lobe which may indicate mild nonspecific pneumonitis. 2.Subsegmental atelectasis at the lung bases. 3.No evidence of pulmonary embolism. 4.Other external/nonacute findings detailed above. Electronically signed by Jamie Logan 01/15/2019 10:05 PM
[2019-01-16] MEDS: ZOSYN 3.375 GM in NS 50 ML IV SCH ×4 (02:52→20:49)
[2019-01-16] MEDS: ZYVOX 600 MG/D5W 600 MG/300 ML IVPB IV SCH ×2 (02:52→14:59)
[2019-01-16 05:55] LABS: BASO# 0.02 X1000 (0.0-0.2); BASO% 0.3 % (0.0-0.8); EOS# 0.02 X1000 (0.0-0.7); EOS% 0.3 % (0.0-10.0); HEMATOCRIT 28.2 % (42.0-52.0); HEMOGLOBIN 8.7 g/dL (14.0-18.0); IMM GRAN# 0.07 X1000 (0.0-0.04); IMM GRAN% 1.2 % (0.0-0.5); LYMPH# 3.41 X1000 (1.2-3.4); LYMPH% 58.4 % (20.5-51.1); MCH 30.5 PG (27-31); MCHC 30.9 g/dL (33-37); MCV 98.9 FL (81-99); MONO% 8.6 % (1.7-9.3); NEUT# 1.82 X1000 (1.4-6.5); NEUT% 31.2 % (42.2-75.2); PLT 93 X1000 (130-400); RBC 2.85 XMIL (4.7-6.1); RDW 16.8 % (11.5-14.5); WBC 5.84 X1000 (4.8-10.8)
[2019-01-16 06:22] LABS: ALBUMIN 2.2 g/dL (3.5-5.0); CALCIUM 7.7 mg/dL (8.8-10.2); CREATININE 1.2 mg/dL (0.7-1.2); POTASSIUM 2.3 mmol/L (3.5-5.1); TOTAL BILIRUBIN 1.5 mg/dL (0.20-1.00); TOTAL PROTEIN 4.3 g/dL (6.3-8.3)
[2019-01-16] MEDS ORDERED: KLOR-CON PO ONE (06:27)
--- NOTE | 2019-01-16 06:32 | EKG Report ---
Test Performed on : 01/16/2019 06:16:30 AM Test Reason : dyspnea Blood Pressure : / mmHG Vent. Rate : 053 BPM Atrial Rate : 042 BPM P-R Int : 000 ms QRS Dur : 106 ms QT Int : 430 ms P-R-T Axes : 000 -22 022 degrees QTc Int : 403 ms Junctional rhythm. Abnormal ECG When compared with ECG of 15-JAN-2019 14:44, (Unconfirmed) Junctional rhythm. has replaced Wide QRS rhythm. Confirmed by Cristofer YOU, Yohannes Brar ([id number]) on 01/16/2019 9:45:15 AM
[2019-01-16] MEDS: LOVENOX SUBQ SCH ×2 (07:30→20:49)
[2019-01-16] MEDS: POTASSIUM CHLORIDE 20 MEQ/SWI 20 MEQ/100 ML IVPB IV SCH ×2 (07:30→12:57)
[2019-01-16] MEDS ORDERED: NS 250 ML IV SCH (09:00)
--- NOTE | 2019-01-16 12:56 | PROGRESS NOTE ---
DATE: 01/16/2019 SUBJECTIVE: This patient is resting comfortably in bed. He is complaining of left foot/heel pain. We received a positive culture from the left foot that showed gram-positive cocci, and he has been on antibiotics. This patient had a hip surgery 2 months ago, complicated with some anemia. He actually received multiple PRBC's. I believe he was discharged to a rehab center now coming back with left DVT. It looks like this patient has been basically bed-bound. He has multiple ulcers including his left heel area and back. He has been placed on anticoagulation. He has been placed on antibiotics. We will continue to monitor. Hematology/Oncology Department will be consulted. OBJECTIVE: Vital Signs: Temperature 98 degrees, pulse 55, respiratory rate 18, blood pressure 94/47, and oxygen saturation 95% on room air. HEENT: Head normocephalic. No trauma. PERRLA. Neck: Supple. No JVD. No masses. Central trachea. Chest: Clear to auscultation. No wheezing. No rales. Cardiovascular: RRR. Abdomen: Soft, nontender, and nondistended. No hepatosplenomegaly. Neurological: This patient is alert. He is oriented x2. He is not oriented to time. He believes this is 1919. I believe he just was confused about it. He follows commands. He moves all 4 extremities, but he does have generalized weakness. Skin: He has some bruises noted in all 4 extremities, some left knee swelling. His elbows are having some redness. He has a sacral area and mid back area, and also left heel with a nonhealing ulcer. LABORATORY: WBC 5.8, hemoglobin 8.7, hematocrit 28.2, and platelets 93,000. Sodium 145, potassium 2.3, chloride 100, bicarbonate 35, BUN 16, and creatinine 1.2. Glucose 126, calcium 7.7, and magnesium 1.7. AST 17, ALT 8, alkaline phosphatase 117, and albumin 2.2. ASSESSMENT AND PLAN: 1. DVT of the left lower extremity. This patient has been placed on anticoagulation twice a day. No signs of bleeding at this moment. We will continue with the same management. We have requested an evaluation by Hematology/Oncology Department since this patient also has non- Hodgkin's lymphoma. 2. Elevated troponin with a new right bundle branch block, follow closely by Cardiology Department. We will monitor this patient and treat him medically. 3. Left heel infection with a positive culture that showed left heel ulcer, pressure ulcer infection with a positive culture that showed gram-positive cocci. This patient has been placed on Zyvox. We will continue with the same management. 4. History of atrial fibrillation currently in sinus rhythm. Continue with home medications. 5. History of non-Hodgkin lymphoma, aware. Hematology/Oncology department has been consulted. 6. Chronic alcohol use. The family states that they removed all the alcohol from the house within the last 3 weeks. We do not think this patient has been drinking for the past weeks so we will continue just to monitor. 7. Generalized weakness and physical deconditioning. I believe this patient is not walking or doing too much activity based on his pressure ulcers. I will request physical therapy once when he feels safe with the DVT. cc: Terry Grijalva MD
[2019-01-16] MEDS: CORDARONE PO SCH (12:57)
[2019-01-16] MEDS: SANTYL OINT TOP SCH (15:00)
[2019-01-16] MEDS ORDERED: KLOR-CON PO SCH (19:00)
[2019-01-16] MEDS: PATIENT'S OWN MED PO SCH (20:50)
[2019-01-17] MEDS: ZOSYN 3.375 GM in NS 50 ML IV SCH ×4 (02:53→22:19)
[2019-01-17] MEDS: ZYVOX 600 MG/D5W 600 MG/300 ML IVPB IV SCH ×2 (02:53→14:14)
[2019-01-17 05:26] LABS: HEMATOCRIT 27.6 % (42.0-52.0); HEMOGLOBIN 8.4 g/dL (14.0-18.0); MCV 97.9 FL (81-99); RBC 2.82 XMIL (4.7-6.1)
[2019-01-17 05:27] LABS: BASO# 0.03 X1000 (0.0-0.2); BASO% 0.6 % (0.0-0.8); EOS# 0.08 X1000 (0.0-0.7); EOS% 1.5 % (0.0-10.0); IMM GRAN# 0.05 X1000 (0.0-0.04); IMM GRAN% 0.9 % (0.0-0.5); LYMPH# 3.74 X1000 (1.2-3.4); LYMPH% 69.3 % (20.5-51.1); MCH 29.8 PG (27-31); MCHC 30.4 g/dL (33-37); MONO# 0.38 X1000 (0.11-0.59); MPV 10.8 FL (7.4-10.4); NEUT# 1.12 X1000 (1.4-6.5); NEUT% 20.7 % (42.2-75.2); PLT 99 X1000 (130-400); RDW 16.9 % (11.5-14.5)
[2019-01-17] MEDS ORDERED: GEODON IM ONE ×2 (05:36→21:17)
[2019-01-17] MEDS ORDERED: STERILE WATER INJ. INJ ONE ×2 (05:36→21:17)
[2019-01-17 05:57] LABS: AGAP 9; BUN 12 mg/dL (8-22); CALCIUM 7.9 mg/dL (8.8-10.2); CHLORIDE 101 mmol/L (98-107); COSMO 284; CREATININE 1.1 mg/dL (0.7-1.2); ESTIMATED GFR > 60; GLUCOSE 112 mg/dL (70-104); POTASSIUM 3.2 mmol/L (3.5-5.1); SODIUM 142 mmol/L (136-145); TCO2 32 mmol/L (25-35)
[2019-01-17] MEDS ORDERED: KLOR-CON PO ONE (07:58)
[2019-01-17] MEDS: CORDARONE PO SCH (08:49)
[2019-01-17] MEDS: PATIENT'S OWN MED PO SCH ×2 (08:49→22:22)
[2019-01-17] MEDS: LOVENOX SUBQ SCH ×2 (08:49→22:19)
[2019-01-17] MEDS: SANTYL OINT TOP SCH (08:56)
--- NOTE | 2019-01-17 09:29 | PROGRESS NOTE ---
DATE: 01/17/2019 SUBJECTIVE: At this moment, this patient is resting comfortably in bed but it looks like he was agitated in the morning. He is answering to all my questions. He states that his is coming to pick him up but I am not quite sure about that. Probably, he is confused, but he is able to say his name, date of , location. He is not oriented to time. He even can say who the pantograph machine operator is. He is following commands. He is not complaining of pain at this moment. OBJECTIVE: Vital Signs: Temperature 97.5 degrees, pulse 57, respiratory rate 15, blood pressure 132/62, oxygen saturation 98 on 2 L of nasal cannula. HEENT: Head normocephalic. No trauma. PERRLA. Neck: Supple. No JVD. No masses. Central trachea. Chest: Clear to auscultation. No wheezing. No rales. Cardiovascular: RRR. Abdomen: Soft, nontender, nondistended. No hepatosplenomegaly. Neurological Examination: The patient is alert. He is oriented x2. He is not oriented to time. I think he is confused a little bit to situation at this moment. Skin: He has some bruises noted in all 4 extremities. Some knee swelling as well. His elbows are having some redness but better compared with previously. His sacral area and mid back area as well as the left heel with nonhealing ulcers. Laboratory: WBC 5.4, hemoglobin 8.4, hematocrit 27.6, platelets 99,000. Sodium 142, potassium 3.2, chloride 101, bicarbonate 32, BUN 9, creatinine 1.1, glucose 112, calcium 7.9. ASSESSMENT AND PLAN: 1. Deep venous thrombosis in the left lower extremity. This patient has been placed on anticoagulation twice a day. No signs of bleeding at this moment. I will wait for hematology/oncology recommendations for this patient. This patient also has non-Hodgkin's lymphoma. 2. Non-Hodgkin's lymphoma. Continue with the same management, pending hematology/oncology recommendations. 3. Elevated troponin with a new right bundle branch block. Followed closely by cardiology department. We will monitor this patient and treat him medically. 4. Left heel infection with a positive culture that showed gram-positive cocci. This patient has been placed on Zyvox. We will continue with the same management. 5. History of atrial fibrillation, currently in sinus rhythm coma. Continue with home medication. 6. Chronic alcohol use. As per the family, they removed all the alcohol from the house within the last 3 weeks. I do not think this patient has been drinking for at least a couple weeks so we will monitor for now. 7. Likely dementia. We will continue to monitor. 8. Generalized weakness and physical deconditioning. I believe this patient is not walking or doing too much physical activity based on his pressure ulcers. I will request physical therapy once we feel safe from his deep venous thrombosis. cc: Terry Grijalva MD
--- NOTE | 2019-01-17 16:26 | HEMO/ONC CONSULTATION ---
DATE: 01/17/2019 REQUESTING PHYSICIAN: Dr. Egan. REASON FOR CONSULTATION: Non-Hodgkin's lymphoma. The patient is known to us. HISTORY OF PRESENT ILLNESS: Mr. Person is a pleasant 88-year-old male with multiple comorbidities, who is well known to Dr. Acuña with history of low-grade, non-Hodgkin's lymphoma, presently on therapy with Zydelig. He was admitted to [facility] on 01/17/2019 with complaints of fever, hypotension, left lower extremity swelling and suspecting left foot infection. He was additionally found to have elevated troponin, as well as a new right bundle branch block. Cardiology was consulted for evaluation and he was placed on broad-spectrum IV antibiotics for suspected infection. At the present time he is doing well without any complaints. He remains afebrile, although he still is hypotensive. He is asymptomatic at this time. We have been asked to evaluate. PAST MEDICAL HISTORY: 1. Low-grade, non-Hodgkin's lymphoma, presently on therapy with Zydelig. 2. Hypogonadism. 3. B 12 deficiency. 4. Hypertension. 5. Vitamin D deficiency. 6. Osteoarthritis. 7. Recurrent iron-deficiency anemia. 8. Right indirect inguinal hernia. 9. Squamous cell carcinoma, right forearm and back. 10. Hypogammaglobulinemia. 11. Anxiety. 12. Depression. 13. Paroxysmal atrial fibrillation. 14. EtOH use. PAST SURGICAL HISTORY: 1. Left knee surgery. 2. Right inguinal hernia repair. 3. Left intertrochanteric nailing. 4. Cholecystectomy. 5. Direct current cardioversion in 2010 secondary to atrial fibrillation. FAMILY HISTORY: No known malignancies. SOCIAL HISTORY: He lives at home with his with a supportive family. He does have a history of chronic alcohol use and, per documentation, all the alcohol was removed from the house by his family within the last 3 weeks. Denies any illicit drug use. ALLERGIES: Haldol. HOME MEDICATIONS: 1. Zydelig 150 mg p.o. b.i.d. 2. Amiodarone 200 mg p.o. daily. REVIEW OF SYSTEMS: Twelve point review of systems reviewed and negative, except as mentioned above in HPI. PHYSICAL EXAMINATION: Vital Signs: Temperature 98.1 degrees, respirations 20, pulse 54, blood pressure 88/38, O2 saturation 96% on room air. General: This is a pleasant, elderly-appearing male, lying in bed in no apparent distress. HEENT: Head is normocephalic, atraumatic. Pupils equal, round, reactive to light and accommodation. Mucous membranes pink and dry. Neck: Supple. Trachea midline. Cardiovascular: Regular rate and rhythm. S1, S2. Pulmonary: Lung sounds clear to auscultation bilaterally, nonlabored. Abdomen: Soft, nontender, nondistended. Bowel sounds present in all 4 quadrants. Musculoskeletal: No bony abnormality. Skin: Warm and dry. He has scattered ecchymoses noted to bilateral upper and lower extremities. He has a scab noted to his left knee. He has a nonhealing ulcer on his left heel, which is currently bandaged with dressing dry and intact. Edema: 1+ left lower extremity edema. LABS: White blood cell count 5.0, hemoglobin 8.4, hematocrit 27.6, platelets 99. Sodium 142, potassium 3.2, chloride 101, CO2 32. BUN 12, creatinine 1.1, glucose 112, calcium 7.9. MICROBIOLOGY: Blood culture 01/15/2019: No growth after 48 hours. Left foot culture 01/15/2019: Gram-positive cocci. IMAGING: Chest x-ray 01/15/2019 impression: No change from prior. Foot x-ray 01/15/2019 impression: Nonspecific findings. Knee x-ray on 01/15/2019 impression: Indeterminate superficial knee soft tissue swelling, as well as a rather large nonspecific joint effusion with advanced osteoarthritis. Pulmonary arteriogram 01/15/2019 impression: A few mild ground-glass opacities in the left upper lobe, which may indicate mild nonspecific pneumonitis, subsegmental atelectasis at the lung bases, no evidence of pulmonary embolism. ASSESSMENT AND PLAN: 1. Low-grade, non-Hodgkin's lymphoma, presently on therapy with Zydelig. We will plan to continue while inpatient. 2. Nonhealing ulcer to the left foot. Cultures thus far have grown gram-positive cocci. Continue on broad-spectrum antibiotics per primary with care additionally following. 3. Elevated troponin with new right bundle branch block. Cardiology is currently following. 4. Hypotension. The patient is currently asymptomatic. Management per Primary/Cardiology. 5. Deep vein thrombosis, left lower extremity documented per primary care. He is currently on Lovenox 80 mg subcutaneous every 12 hours. Continue current management. The above findings represent the assessment and plan of Dr. Dwain Acuña. Thank you for allowing us to participate in the care of this patient. We will follow closely. Dictated by MARTÍN Ramsay for Dwain Acuña MD cc: MARTÍN Ramsay MD
[2019-01-17] MEDS: ATIVAN IV PRN (23:21)
[2019-01-18] MEDS: ZOSYN 3.375 GM in NS 50 ML IV SCH ×2 (02:56→09:41)
[2019-01-18] MEDS: ZYVOX 600 MG/D5W 600 MG/300 ML IVPB IV SCH (02:56)
[2019-01-18 05:54] LABS: BASO# 0.04 X1000 (0.0-0.2); BASO% 0.8 % (0.0-0.8); EOS# 0.09 X1000 (0.0-0.7); EOS% 1.8 % (0.0-10.0); HEMATOCRIT 29.9 % (42.0-52.0); HEMOGLOBIN 9.1 g/dL (14.0-18.0); IMM GRAN# 0.02 X1000 (0.0-0.04); IMM GRAN% 0.4 % (0.0-0.5); LYMPH% 68.1 % (20.5-51.1); MCH 29.7 PG (27-31); MCHC 30.4 g/dL (33-37); MCV 97.7 FL (81-99); MPV 11.6 FL (7.4-10.4); NEUT# 1.04 X1000 (1.4-6.5); NEUT% 20.9 % (42.2-75.2); PLT 111 X1000 (130-400); RBC 3.06 XMIL (4.7-6.1); RDW 16.7 % (11.5-14.5); WBC 4.99 X1000 (4.8-10.8)
[2019-01-18 06:01] LABS: AGAP 8; BUN 12 mg/dL (8-22); CALCIUM 8.1 mg/dL (8.8-10.2); CHLORIDE 100 mmol/L (98-107); COSMO 283; CREATININE 1.1 mg/dL (0.7-1.2); ESTIMATED GFR > 60; GLUCOSE 98 mg/dL (70-104); SODIUM 142 mmol/L (136-145); TCO2 34 mmol/L (25-35)
[2019-01-18 06:02] LABS: MAGNESIUM 1.5 mg/dL (1.5-2.7); PHOSPHORUS 1.9 mg/dL (2.7-4.5)
[2019-01-18] MEDS ORDERED: POTASSIUM PHOSPHATE 30 MMOL in NS 250 ML IV ONE (09:10)
[2019-01-18] MEDS ORDERED: MAGNESIUM SULFATE 2 GM/S.W.I. 2 GM/50 ML IVPB IV ONE (09:10)
[2019-01-18] MEDS: PATIENT'S OWN MED PO SCH ×2 (09:40→22:15)
[2019-01-18] MEDS: LOVENOX SUBQ SCH ×2 (09:41→22:15)
[2019-01-18] MEDS: CORDARONE PO SCH (09:41)
[2019-01-18] MEDS: SANTYL OINT TOP SCH (09:41)
[2019-01-18] MEDS: ATIVAN IV PRN ×2 (09:41→13:21)
--- NOTE | 2019-01-18 13:42 | Extremity Venous Study ---
PROCEDURE NAME: Venous U/S Bilateral Legs - 01/15/2019 BILATERAL LOWER EXTREMITY VENOUS ULTRASOUND: JUKEBOX ROUTEMAN: Debbi. REQUESTING PHYSICIAN: Dr. Crisostomo. INDICATIONS: Elevated D-dimer, shortness of breath with status post left hip 1 month ago. FINDINGS: The deep and superficial veins of the bilateral lower extremities were visualized along their course. In the right lower extremity, all vessels appear compressible. On the left, there is acute DVT noted in the left superficial femoral vein, a focal area, and then an additional thrombus noted in the popliteal extending along the calf veins. SUMMARY: Acute deep venous thrombosis, extensive, in the left lower extremity. cc: MD Lucita Ortega PA
--- NOTE | 2019-01-18 14:26 | PROGRESS NOTE ---
DATE: 01/18/2019 SUBJECTIVE: This patient has been confused, he has been pulling out his IV lines I believe multiple times, he has been placed on restraints, he is able to say his name and his date of , but he is oriented to place or time. He has an MRSA infection and Acinetobacter baumannii complex infection at the level of the left calcaneal area, I have requested a triple bone scan to rule out osteomyelitis and I have requested an evaluation by Infectious Disease Department as well. OBJECTIVE: Vital Signs: Temperature 97.3 degrees, pulse 63, respiratory rate 20, blood pressure 111/49, oxygen saturation 97% on room air. HEENT: Head normocephalic, no trauma, PERRLA. Neck: Supple. No JVD. No masses. Central trachea. Chest: Clear to auscultation. No wheezing. No rales. Cardiovascular: RRR. Abdomen: Soft, nontender, nondistended. No hepatosplenomegaly. Neurological: This patient is alert, he is oriented x1, he has been agitated and confused. Skin: He has some bruises noted in all 4 extremities and some knee swelling as well. He has a left heel ulcer which is not healing and looks a little bit infected. LABORATORY: WBC 4.9, hemoglobin 9.1, hematocrit 29.9, platelets 111,000, sodium 142, potassium 3, chloride 100, bicarbonate 34, BUN 12, creatinine 1.1, glucose 98, calcium 8.1, phosphorus 1.9, magnesium 1.5. ASSESSMENT AND PLAN: 1. DVT in the left lower extremity, this patient has been placed on anticoagulation twice a day. No signs of bleeding at this moment. I will continue following the recommendations of Hematology/Oncology Department. 2. History of non-Hodgkin lymphoma, continue with same management for now. 3. Elevated troponin with a new right bundle branch block, followed by Cardiology Department. I do not think this patient having acute coronary syndrome. We will continue to monitor. He is not complaining of chest pain or shortness of breath. 4. Left heel infection with MRSA and Acinetobacter baumannii, aware this patient is getting Zosyn and linezolid. I have requested an evaluation by Infectious Disease Department and also I requested a triple bone scan to rule out osteomyelitis. 5. History of atrial fibrillation, currently in sinus rhythm. Continue with home medication and now he has been placed on anticoagulation due to his DVT. 6. Chronic alcohol use. As per the family, they removed all the alcohol from the house within the past probably 4 weeks and I do not think this patient is having a withdrawal symptom. 7. Likely dementia with agitation, this patient has been placed on restraints. He is getting as needed Ativan. 8. Generalized weakness and physical deconditioning. It looks like this patient has not been walking or doing physical activity based on his pressure ulcers, I will request physical therapy once we feel safe from his DVT condition. cc: Terry Grijalva MD
[2019-01-18] MEDS ORDERED: STERILE WATER INJ. INJ ONE (14:34)
[2019-01-18] MEDS ORDERED: GEODON IM ONE ×2 (14:34)
--- NOTE | 2019-01-18 15:50 | Diag Imaging Result Doc PS360 ---
EXAM: 3 PHASE BONE SCAN 01/18/2019 HISTORY: R/O left heel osteomyelitis TECHNIQUE: Three phase bone scan, 29 mCi of technetium 99m MDP COMMENT: There is increased flow activity to the left foot compared to the right. The delayed images demonstrates slightly increased activity over the posterior left heel. This is also true on the blood pool images. There is no evidence of bony erosion or periosteal reaction on the recent plain radiograph series of the left foot from 01/15/2019. IMPRESSION: The possibility of osteomyelitis in the left heel cannot be excluded. The findings would also be consistent with a non-osteomyelitis inflammatory process. Electronically signed by Jose L Sherman 01/18/2019 3:48 PM
--- NOTE | 2019-01-18 17:29 | INFECTIOUS DISEASE CONSULT REP ---
DATE: 01/29/2019 CONCLUSION: The patient appears to have a septic left knee arthritis and may have a methicillin- resistant Staph aureus and Acinetobacter heel osteomyelitis. PRESENT ILLNESS: A culture from the patient's left heel grew methicillin-resistant Staph aureus and Acinetobacter. RECOMMENDATIONS: I have started the patient on a combination of daptomycin and cefepime. I did an arthrocentesis of the patient's left knee under sterile conditions and I obtained cloudy fluid. It has been sent to the lab for body fluid analysis, Gram stain, and culture. DISCUSSION: The patient is unable provide a history. No family member was present. The information I do have is from the computer. The patient's main complaint when he came into the hospital was left knee pain and a sore left foot. He also had fever and hypotension. Now his CBC shows a white count 4990, hemoglobin 9.1, and platelet count 111,000. Creatinine is 1.1. GFR is greater than 60. The bone scan showed that cannot rule out the possibility of osteomyelitis of the left heel. Chest x-ray of the left foot showed no heel osteomyelitis. Chest x-ray shows pulmonary venous congestion. PAST MEDICAL HISTORY: Positive for paroxysmal atrial fibrillation, non-Hodgkin lymphoma, hypertension, diastolic heart failure, anxiety and depression and alcohol use. PAST SURGICAL HISTORY: Positive for cholecystectomy, right inguinal repair, left knee surgery, and left intertrochanteric nailing, direct current cardioversion. HOME MEDICATIONS: Include amiodarone and Zydelig. ALLERGIES: The patient has an allergy to Haldol. SOCIAL HISTORY: The patient lives with his . REVIEW OF SYSTEMS: Unable to be obtained. PHYSICAL EXAM: Temperature is 97.3 degrees, pulse 63, respirations 20, blood pressure 111/49. Patient weighs 187 pounds.General: This is an ill-appearing, delirious, elderly male. He does not appear to be in any acute distress, however. Head/eyes/ears/nose/throat: No drainage is noted from the nose or ears. I could not get a good look in the patient's mouth. Neck: No meningismus. Lungs: Clear to auscultation. Cardiovascular: Heart rate was regular. Abdomen: Soft and nontender. Extremities: The left knee was fluctuant. The left heel had an ulcerated area that was erythematous but there was no purulence. Neurologic: The patient as mentioned above was delirious. He did not follow request to move his extremities. He did not talk in any way I could understand what he was saying. Integument: There were some bruises on the patient's legs, a few with small eschars. Thank you for the consult. cc: Doroteo Wells MD
[2019-01-18 21:21] LABS: BODY FLUID SOURCE SYNOVIAL FLUID; WBC BF 15.58 /cumm
[2019-01-18 21:22] LABS: MONOS 4 %; POLYS 96 %
[2019-01-18] MEDS: CUBICIN 500 MG in NS 100 ML IV SCH (22:15)
[2019-01-18] MEDS: MAXIPIME 2 GM in NS 100 ML IV SCH (22:15)
[2019-01-19] MEDS: ATIVAN IV PRN ×5 (03:13→20:51)
[2019-01-19 06:37] LABS: AGAP 10; BUN 14 mg/dL (8-22); CHLORIDE 101 mmol/L (98-107); COSMO 287; CREATININE 1.1 mg/dL (0.7-1.2); ESTIMATED GFR > 60; GLUCOSE 96 mg/dL (70-104); POTASSIUM 3.2 mmol/L (3.5-5.1); SODIUM 144 mmol/L (136-145); TCO2 33 mmol/L (25-35)
[2019-01-19 06:38] LABS: CALCIUM 8.4 mg/dL (8.8-10.2); PHOSPHORUS 3.2 mg/dL (2.7-4.5)
[2019-01-19] MEDS ORDERED: KLOR-CON PO ONE (07:23)
[2019-01-19] MEDS: PATIENT'S OWN MED PO SCH ×2 (08:31→20:51)
[2019-01-19] MEDS: LOVENOX SUBQ SCH ×2 (08:32→20:51)
[2019-01-19] MEDS: SANTYL OINT TOP SCH (08:32)
[2019-01-19] MEDS: CORDARONE PO SCH (08:32)
[2019-01-19] MEDS: MAXIPIME 2 GM in NS 100 ML IV SCH ×2 (08:32→20:51)
[2019-01-19] MEDS ORDERED: CALAMINE LOTION TOP PRN (09:49)
--- NOTE | 2019-01-19 11:07 | PROGRESS NOTE ---
DATE: 01/19/2019 SUBJECTIVE: This patient seems to be less agitated today compared with yesterday, he is oriented to person and date of but he is not oriented to place or time. He is tolerating p.o. Infectious Disease Department evaluated this patient. We are treating him with cefepime and daptomycin, he had an arthrocentesis done from his left knee, so far negative culture. Gram stain showed 2+ white blood cells with some occasional epithelial cells and gram-positive cocci, 4+ . I will ask Orthopedic Surgery Department to evaluate this patient, but so far, the culture is negative. OBJECTIVE: Vital Signs: Temperature 97.5 degrees, pulse 71, respiratory rate 16, blood pressure 104/65, oxygen saturation 95% on room air. HEENT: Head normocephalic. No trauma. PERRLA. Neck: Supple. No JVD. No masses. Central trachea. Chest: Clear to auscultation. No wheezing. No rales. Cardiovascular: Regular rate and rhythm. Abdomen: Soft, nontender, nondistended. No hepatosplenomegaly. Neurological: This patient is alert. He is oriented x2. He was agitated yesterday. He seems to be a little bit better today. Skin: He has some bruises noted in all 4 extremities and some knee swelling as well. Left heel ulcer which is nn healing and looks a little bit infected. Vital signs: Temperature 97.5 degrees, pulse 71., respiratory rate 16, blood pressure 104/65, oxygen saturation 95% on room air. LABORATORY DATA: Sodium 144, potassium 3.2, chloride 101, bicarbonate 33, BUN 14, creatinine 1.1 glucose 96, calcium 8.4, phosphorus 3.2, magnesium 2. ASSESSMENT AND PLAN: 1. Deep venous thrombosis of the left lower extremities. This patient has been placed on anticoagulation twice a day. No signs of bleeding at this moment. We will continue following the recommendations of Hematology/Oncology Department. 2. History of non-Hodgkin lymphoma. Continue with same management for now. 3. Elevated troponin with new right bundle branch block, followed by Cardiology Department. I do not think this patient is having acute coronary syndrome. He will be treated medically. 4. Left heel infection with Methicillin-resistant Staphylococcus aureus and gram negative rods, Aware. This patient used to be on Zosyn and Zyvox and has been switch by Dr. Wells from Infectious Disease Department to cefepime and daptomycin, we will continue to monitor. I have requested a double a three-phase bone scan to rule out that showed that the changes could be consistent with a known osteomyelitis inflammatory process but the possibility of osteomyelitis in the left heel cannot be excluded. 5. Left knee in inflammation, status post arthrocentesis, the white blood cell in the fluid is around 15.5 and the fluid polynuclear white blood cells in 96 and mononuclear white blood cells is 4 pending crystals for now. 6. History of .atrial fibrillation, currently in sinus rhythm. Continue with home medications, now he been placed on anticoagulation due to his DVT. 7. Chronic alcohol use. As per the family, they removed all the alcohol from the house within the past probably 4 weeks. I do not think this patient having any kind of withdrawal symptoms. 8. Likely dementia with agitation, he is getting better right now, he in present restraints. 9. Generalized weakness and physical deconditioning. It looks like this patient has not been walking or doing physical activity based on his pressure ulcers, mostly on the left lower extremity. left heel. We will request physical therapy probably tomorrow. cc: Terry Grijalva MD MTDD
[2019-01-19] MEDS: CUBICIN 500 MG in NS 100 ML IV SCH (20:51)
[2019-01-19] MEDS: CALMOSEPTINE OINTMENT TOP PRN (22:48)
[2019-01-20] MEDS: ATIVAN IV PRN ×4 (00:11→23:46)
[2019-01-20 05:55] LABS: BASO# 0.06 X1000 (0.0-0.2); BASO% 1.5 % (0.0-0.8); EOS# 0.06 X1000 (0.0-0.7); EOS% 1.5 % (0.0-10.0); HEMATOCRIT 29.9 % (42.0-52.0); HEMOGLOBIN 9.2 g/dL (14.0-18.0); IMM GRAN# 0.04 X1000 (0.0-0.04); LYMPH# 2.44 X1000 (1.2-3.4); LYMPH% 61.9 % (20.5-51.1); MCH 31.3 PG (27-31); MCHC 30.8 g/dL (33-37); MCV 101.7 FL (81-99); MONO# 0.26 X1000 (0.11-0.59); MONO% 6.6 % (1.7-9.3); MPV 12.2 FL (7.4-10.4); NEUT# 1.08 X1000 (1.4-6.5); NEUT% 27.5 % (42.2-75.2); PLT 82 X1000 (130-400); RBC 2.94 XMIL (4.7-6.1); RDW 16.9 % (11.5-14.5); WBC 3.94 X1000 (4.8-10.8)
[2019-01-20 06:12] LABS: POTASSIUM 3.3 mmol/L (3.5-5.1); SODIUM 145 mmol/L (136-145)
[2019-01-20 06:13] LABS: AGAP 11; BUN 12 mg/dL (8-22); CALCIUM 8.1 mg/dL (8.8-10.2); CHLORIDE 105 mmol/L (98-107); COSMO 288; CREATININE 0.9 mg/dL (0.7-1.2); ESTIMATED GFR > 60; GLUCOSE 86 mg/dL (70-104); TCO2 29 mmol/L (25-35)
[2019-01-20] MEDS: LOVENOX SUBQ SCH ×2 (08:06→20:19)
[2019-01-20] MEDS: CORDARONE PO SCH (08:07)
[2019-01-20] MEDS: SANTYL OINT TOP SCH (08:07)
[2019-01-20] MEDS: MAXIPIME 2 GM in NS 100 ML IV SCH ×2 (08:07→20:19)
[2019-01-20] MEDS: PATIENT'S OWN MED PO SCH ×2 (08:07→20:20)
[2019-01-20] MEDS ORDERED: KLOR-CON PO ONE (09:03)
--- NOTE | 2019-01-20 10:19 | PROGRESS NOTE ---
DATE: 01/20/2019 SUBJECTIVE: This patient is lying comfortably in bed. Actually, he is sleeping. I tried to wake him up, and he opened his eyes. I asked him how he was feeling, and he told me good and went back to sleep immediately. He received 1 mg of Ativan at midnight or so. We will continue to monitor. Vital signs seem to be stable, as well as laboratory, just a little bit low potassium level at 3.3. OBJECTIVE: Vital signs:: Temperature 97.2 degrees, pulse 60, respiratory rate 16, blood pressure 126/76, oxygen saturation 96 on room air. HEENT: Head normocephalic, no trauma. PERRLA. Neck: Supple. No JVD. No masses. Central trachea. Chest: Clear to auscultation. No wheezing. No rales. Cardiovascular: RRR. Abdomen is soft, nontender, nondistended. No hepatosplenomegaly. Neurological: This patient is sleepy, but arousable. He was able to open his eyes and answered just 1 question for me; he said he was feeling good when I asked him how he was doing, and he went back to sleep again. He moves all 4 extremities spontaneously. DIAGNOSTIC STUDIES: WBC 3.9, hemoglobin 9.2, hematocrit 29.9, platelets 82,000. Sodium 145, potassium 3.3, chloride 105, bicarbonate 29, BUN 12, creatinine 0.9, glucose 86, calcium 8.1. ASSESSMENT AND PLAN: 1. Deep vein thrombosis of the left lower extremity. This patient has been placed on anticoagulation twice a day. No signs of bleeding at this moment. Hemoglobin has been stable. We will continue following the recommendations of Hematology/Oncology department. 2. History of non-Hodgkin lymphoma. Continue with same management for now. 3. Elevated troponin with a new right bundle branch block. Followed by Cardiology. I do not think he has an acute coronary syndrome. He is being treated medically. 4. Left heel infection with methicillin-resistant Staphylococcus aureus and Acinetobacter baumannii. Treated by Infectious Disease department. 5. Left knee edema status post arthrocentesis. No signs of infection at this moment. 6. History of atrial fibrillation. Currently in sinus rhythm. Continue with medication. Now he has been on anticoagulation due to his DVT. 7. Chronic alcohol abuse. It looks like this patient stopped drinking 3 or 4 weeks ago. The family removed all the alcohol from the house within probably 4 weeks, so I do not think he is having any kind of alcohol withdrawal symptoms. 8. Likely dementia with agitation. This has been discussed with the son, and he has been having problems with dementia already at home. 9. Generalized weakness and physical deconditioning. It looks like this patient has not been walking or doing too much physical activity, based on his pressure ulcers mostly left lower extremity, left heel, and DVT now. We will request physical therapy. cc: Terry Grijalva MD
[2019-01-20] MEDS: GEODON IM PRN (18:51)
[2019-01-20] MEDS: CUBICIN 500 MG in NS 100 ML IV SCH (20:19)
[2019-01-21] MEDS: ATIVAN IV PRN (03:12)
[2019-01-21 06:22] LABS: AGAP 8; BUN 13 mg/dL (8-22); CALCIUM 8.6 mg/dL (8.8-10.2); CHLORIDE 105 mmol/L (98-107); COSMO 297; CREATININE 0.9 mg/dL (0.7-1.2); ESTIMATED GFR > 60; GLUCOSE 104 mg/dL (70-104); SODIUM 149 mmol/L (136-145); TCO2 36 mmol/L (25-35)
[2019-01-21] MEDS: CORDARONE PO SCH ×2 (09:18→09:21)
[2019-01-21] MEDS: LOVENOX SUBQ SCH ×2 (09:18→20:15)
[2019-01-21] MEDS: MAXIPIME 2 GM in NS 100 ML IV SCH ×2 (09:18→20:15)
[2019-01-21] MEDS: PATIENT'S OWN MED PO SCH ×3 (09:18→20:15)
[2019-01-21] MEDS: SANTYL OINT TOP SCH (09:19)
[2019-01-21] MEDS: POTASSIUM CHLORIDE 40 MEQ in D5W 1,000 ML IV SCH ×2 (10:16→23:37)
[2019-01-21 19:02] LABS: AGAP 11; BUN 12 mg/dL (8-22); CALCIUM 8.8 mg/dL (8.8-10.2); CHLORIDE 104 mmol/L (98-107); COSMO 295; CREATININE 0.9 mg/dL (0.7-1.2); ESTIMATED GFR > 60; GLUCOSE 108 mg/dL (70-104); POTASSIUM 3.6 mmol/L (3.5-5.1); SODIUM 148 mmol/L (136-145); TCO2 33 mmol/L (25-35)
--- NOTE | 2019-01-21 19:36 | PROGRESS NOTE ---
DATE: 01/21/2019 SUBJECTIVE: This patient is lying comfortably in bed. Actually he is sleeping. I tried to wake him up, but he responded to pain stimulation by opening a little bit his eyes and grimacing. He also tried to vocalize with the pain. He received a few doses of Ativan during the night due to agitation. His sodium level is elevated, and the potassium level is low. I will treat it with D5W and potassium. OBJECTIVE: Vital signs: Temperature is 97.9, pulse 56, respiratory rate 17, blood pressure 117/48, oxygen saturation 100% on 2 L nasal cannula. HEENT: Head is atraumatic and normocephalic. PERRLA. Neck: Supple. No JVD. No masses. Central trachea. Chest: Clear to auscultation. No wheezing. No rales. Cardiovascular: Regular rate and rhythm. Abdomen: Soft, nondistended and nontender. No hepatosplenomegaly. Neurologic: This patient is sleepy, a little bit arousable only with pain stimulation. He opened his eyes a little bit with pain and tried to vocalize. He is grimacing. DIAGNOSTIC DATA: Sodium 149, potassium 3, chloride 105, bicarbonate 36, BUN is 13, creatinine 0.9, glucose 104, calcium 8.6. ASSESSMENT AND PLAN: 1. Deep venous thrombosis of the left lower extremity. This patient has been placed on Lovenox twice a day, and we will continue with the same treatment until this patient is completely awake and can take his medications by mouth. We will continue with the same management for now. Hematology/Oncology onboard. 2. History of non-Hodgkin's lymphoma. Continue with the same management for now. Hematology/Oncology onboard. 3. Elevated troponin with a new right bundle branch block, followed by Cardiology Department. I do not think he has an acute coronary syndrome. He has been treated medically. 4. Left heel infection with methicillin-resistant Staphylococcus aureus and Acinetobacter baumannii, treated by Infectious Disease Department. We will continue to monitor. 5. Left knee edema, status post arthrocentesis. No signs of infection at this moment. 6. History of atrial fibrillation. Currently in sinus rhythm. Continue with this medication. Now he has been on anticoagulation due to his DVT. 7. Chronic alcohol abuse. It looks like this patient stopped drinking around 3 or 4 weeks ago. The family has removed all of the alcohol from his house, probably 4 weeks ago or so. I do not think he is having any kind of alcohol withdrawal symptoms, but we will keep an eye on him. 8. Likely dementia with agitation. This has been discussed with the son. He has been having this kind of dementia already at home. 9. Generalized weakness and physical deconditioning. We will continue physical therapy once this patient is more awake. 10.Hypernatremia. He will receive D5W. 11.Hypokalemia. I will add potassium to the fluids. We will monitor this closely. cc: Terry Grijalva MD
[2019-01-21] MEDS: CUBICIN 500 MG in NS 100 ML IV SCH (20:15)
[2019-01-22 01:20] LABS: AGAP 13; BUN 12 mg/dL (8-22); CHLORIDE 106 mmol/L (98-107); COSMO 292; CREATININE 0.9 mg/dL (0.7-1.2); ESTIMATED GFR > 60; GLUCOSE 100 mg/dL (70-104); POTASSIUM 3.5 mmol/L (3.5-5.1); SODIUM 147 mmol/L (136-145); TCO2 28 mmol/L (25-35)
[2019-01-22 06:12] LABS: BASO# 0.01 X1000 (0.0-0.2); BASO% 0.2 % (0.0-0.8); EOS# 0.04 X1000 (0.0-0.7); EOS% 0.9 % (0.0-10.0); HEMATOCRIT 28.4 % (42.0-52.0); HEMOGLOBIN 8.7 g/dL (14.0-18.0); IMM GRAN# 0.06 X1000 (0.0-0.04); IMM GRAN% 1.4 % (0.0-0.5); LYMPH# 2.48 X1000 (1.2-3.4); LYMPH% 57.5 % (20.5-51.1); MCH 30.2 PG (27-31); MCHC 30.6 g/dL (33-37); MCV 98.6 FL (81-99); MONO# 0.48 X1000 (0.11-0.59); MONO% 11.1 % (1.7-9.3); MPV 11.2 FL (7.4-10.4); NEUT# 1.24 X1000 (1.4-6.5); NEUT% 28.9 % (42.2-75.2); PLT 78 X1000 (130-400); RBC 2.88 XMIL (4.7-6.1); RDW 16.4 % (11.5-14.5); WBC 4.31 X1000 (4.8-10.8)
[2019-01-22 06:13] LABS: AGAP 7; ALB/GLOB RATIO 1.3; ALBUMIN 2.4 g/dL (3.5-5.0); ALKALINE PHOSPHATASE 117 U/L (32-122); BUN 11 mg/dL (8-22); CALCIUM 8.8 mg/dL (8.8-10.2); CHLORIDE 104 mmol/L (98-107); COSMO 287; CREATININE 0.8 mg/dL (0.7-1.2); ESTIMATED GFR > 60; GLUCOSE 111 mg/dL (70-104); GOT 31 U/L (10-34); GPT 14 U/L (10-44); MAGNESIUM 1.8 mg/dL (1.5-2.7); PHOSPHORUS 2.3 mg/dL (2.7-4.5); POTASSIUM 3.5 mmol/L (3.5-5.1); SODIUM 144 mmol/L (136-145); TCO2 33 mmol/L (25-35); TOTAL BILIRUBIN 0.59 mg/dL (0.20-1.00); TOTAL PROTEIN 4.3 g/dL (6.3-8.3)
[2019-01-22] MEDS: CORDARONE PO SCH (08:38)
[2019-01-22] MEDS: LOVENOX SUBQ SCH ×2 (08:38→20:37)
[2019-01-22] MEDS: SANTYL OINT TOP SCH (08:40)
[2019-01-22] MEDS: PATIENT'S OWN MED PO SCH ×2 (08:40→20:37)
[2019-01-22] MEDS: AZACTAM 2 GM in NS 100 ML IV SCH ×3 (08:52→23:21)
[2019-01-22] MEDS: POTASSIUM CHLORIDE 40 MEQ in D5W 1,000 ML IV SCH (14:50)
[2019-01-22] MEDS: CUBICIN 500 MG in NS 100 ML IV SCH (20:37)
[2019-01-23] MEDS: POTASSIUM CHLORIDE 40 MEQ in D5W 1,000 ML IV SCH (04:35)
[2019-01-23 05:26] LABS: BASO# 0.02 X1000 (0.0-0.2); BASO% 0.5 % (0.0-0.8); EOS# 0.09 X1000 (0.0-0.7); EOS% 2.1 % (0.0-10.0); HEMATOCRIT 27.4 % (42.0-52.0); HEMOGLOBIN 8.3 g/dL (14.0-18.0); LYMPH# 2.67 X1000 (1.2-3.4); LYMPH% 61.7 % (20.5-51.1); MCH 30.3 PG (27-31); MCHC 30.3 g/dL (33-37); MONO% 11.5 % (1.7-9.3); NEUT# 1.05 X1000 (1.4-6.5); NEUT% 24.2 % (42.2-75.2); PLT 82 X1000 (130-400); RBC 2.74 XMIL (4.7-6.1); RDW 16.5 % (11.5-14.5); WBC 4.33 X1000 (4.8-10.8)
[2019-01-23 05:35] LABS: AGAP 2; BUN 11 mg/dL (8-22); CALCIUM 8.9 mg/dL (8.8-10.2); CHLORIDE 102 mmol/L (98-107); COSMO 279; CREATININE 0.9 mg/dL (0.7-1.2); ESTIMATED GFR > 60; GLUCOSE 109 mg/dL (70-104); POTASSIUM 3.7 mmol/L (3.5-5.1); SODIUM 140 mmol/L (136-145); TCO2 36 mmol/L (25-35)
[2019-01-23] MEDS: AZACTAM 2 GM in NS 100 ML IV SCH ×3 (06:31→23:12)
[2019-01-23] MEDS: LOVENOX SUBQ SCH ×2 (07:55→08:15)
[2019-01-23] MEDS: ATIVAN IV PRN (07:55)
[2019-01-23] MEDS: CORDARONE PO SCH ×2 (07:55→08:16)
[2019-01-23] MEDS: PATIENT'S OWN MED PO SCH ×3 (07:56→21:08)
[2019-01-23] MEDS: SANTYL OINT TOP SCH ×2 (07:56→08:16)
[2019-01-23] MEDS ORDERED: ELIQUIS PO ONE (09:22)
--- NOTE | 2019-01-23 16:34 | INFECTIOUS DISEASE PROGRESS NO ---
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 Also, the patient's left knee had a white count of 15,580. However, nothing grew in the synovial fluid and the fluid was negative for crystals. Therefore, the patient does not appear to have septic knee arthritis and also does not have gouty arthritis causing his knee swelling. PRESENT MEDICATIONS: The patient is on a combination of daptomycin and cefepime. PHYSICAL EXAMINATION: Vital Signs: Temperature is 98 degrees, pulse 52, respirations 16, blood pressure 124/80. General: This is an ill-appearing, elderly male. He is in a delirium. He does not respond to verbal stimuli. Head, Eyes, Ears, Nose, and Throat: No drainage is noted from the nose or ears. Neck: No meningismus. Lungs: Clear to auscultation. Cardiovascular: Heart rate is regular. Abdomen: Soft and nontender. Bones, Joints, and Muscles: Patient on his left heel has an ulcerated area which is not very deep. It is erythematous but it is getting better. The left knee also is not quite as swollen as it was 3 days ago. Neurologic: The patient was lying on his side. He did not move his extremities. He did not follow requests to move his extremities either. Integument: No rash noted. The patient has left heel osteomyelitis. He does not appear to have either a septic knee arthritis or a gouty knee arthritis. LAB AND X-RAY: There is no x-ray for today. The patient's CBC shows a white blood cell count of 3940, hemoglobin 9.2, and platelet count 82,000. Creatinine is 0.9. GFR is greater than 60. The patient's left knee fluid had in it 15,580 white blood cells of which 96% were polymorphonuclear. Synovial fluid crystals were negative. The left knee synovial fluid was negative in culture. ASSESSMENT AND PLAN: The patient has heel osteomyelitis. My plan is to continue daptomycin and cefepime. As regarding the patient's left knee, I do not think it is infected and it does not appear to be due to gout. I do not think any other treatment is needed at this time other than maybe physical therapy, doing passive exercises involving the knee. COMORBIDITIES: The patient is elderly. He also has non-Hodgkin's lymphoma and alcohol abuse. The patient also has heart failure. cc: Doroteo Wells MD
--- NOTE | 2019-01-23 20:17 | PROGRESS NOTE ---
DATE: 01/23/2019 INTERVAL HISTORY: Patient with some confusion overnight. Attempting to pull out IVs. Eventually ended up in restraints. Somewhat improved this morning. No new complaints. No other acute events overnight. REVIEW OF SYSTEMS: A 12 point review of systems was negative except as per Interval History. LABS: WBC 4.3, hemoglobin 8.3, hematocrit 27.4, platelets 82,000. Basic metabolic panel unremarkable. Sodium 140. VITAL SIGNS: T-max 98.6 degrees, pulse 68, respirations 19, blood pressure 118/77, O2 saturation 97% on room air. PHYSICAL EXAMINATION: General: No acute distress. HEENT: Normocephalic, atraumatic. Moist mucous membranes. No cervical adenopathy. Cardiovascular: Regular rate and rhythm. No murmurs noted. Pulmonary: Clear to auscultation bilaterally. No wheezing, rales, or rhonchi. Abdomen: Soft, nontender, and nondistended. Bowel sounds positive. Extremities: Peripheral pulses decreased, but intact. No clubbing or cyanosis noted. Neurologic: Cranial nerves grossly intact. Mild global weakness. No focal deficits. Psychiatric: Patient awake, alert, cooperative, and answering most, but not all, questions appropriately. Oriented to person and place, but not time. ASSESSMENT AND PLAN: 1. Deep venous thrombosis of left upper extremity. The patient has been on Lovenox. Transitioning to Eliquis as he is awake and able to take p.o. adequately. 2. Left heel ulcer with possible osteomyelitis. Infectious Disease following. Currently on antibiotics with daptomycin and aztreonam. Discussed with Infectious Disease and they believe he needs to continue this regimen. Will monitor. 3. Demand ischemia/type 2 myocardial infarction. Patient initially with elevated troponin and right bundle branch block. Evaluated by Cardiology. They did not think this represented acute coronary syndrome, but rather demand ischemia due to his other medical issues. 4. Paroxysmal atrial fibrillation. Has been largely in sinus rhythm on this hospitalization. Continue to monitor. 5. Left knee edema. Arthrocentesis did not support a septic joint. Possibly arthritis related. Monitor. 6. Chronic alcohol abuse. The family cleaned out his alcohol approximately 3 to 4 weeks ago, and has had no drink since then reportedly. No signs of alcohol withdrawal here. 7. Dementia, with occasional agitation. Did end up in restraints last night, although he appears much improved today. Will add some oral Geodon on an as needed basis to see if that helps. If it does help, then may schedule p.o. either Geodon or Seroquel. 8. Generalized weakness and physical deconditioning. Continue physical therapy while here. Work on placement ongoing. 9. Hypernatremia, resolved with D5. As patient is now more awake, we will take him off fluids and see how he does. 10. Hypokalemia, resolved. Will monitor as we are taking him off potassium containing fluids. 11. Disposition. Patient medically stable at this point, but his intermittent agitation with pulling out IVs leading to restraints and his ongoing intravenous antibiotics may present a barrier to discharge. Will monitor and continue discussions.
[2019-01-23] MEDS: GEODON PO PRN (21:08)
[2019-01-23] MEDS: ELIQUIS PO SCH (21:08)
[2019-01-23] MEDS: CUBICIN 500 MG in NS 100 ML IV SCH (21:25)
[2019-01-23] MEDS: CALMOSEPTINE OINTMENT TOP PRN (21:27)
[2019-01-24 06:19] LABS: AGAP 10; BUN 12 mg/dL (8-22); CALCIUM 8.8 mg/dL (8.8-10.2); CHLORIDE 103 mmol/L (98-107); COSMO 284; CREATININE 0.9 mg/dL (0.7-1.2); ESTIMATED GFR > 60; GLUCOSE 84 mg/dL (70-104); POTASSIUM 3.1 mmol/L (3.5-5.1); SODIUM 143 mmol/L (136-145); TCO2 30 mmol/L (25-35)
[2019-01-24] MEDS: AZACTAM 2 GM in NS 100 ML IV SCH ×3 (06:33→23:36)
[2019-01-24] MEDS: POTASSIUM CHLORIDE 20 MEQ/SWI 20 MEQ/100 ML IVPB IV SCH ×2 (09:02→11:04)
[2019-01-24] MEDS: ELIQUIS PO SCH ×2 (09:02→23:39)
[2019-01-24] MEDS: CORDARONE PO SCH (09:02)
[2019-01-24] MEDS: PATIENT'S OWN MED PO SCH ×2 (09:02→23:40)
[2019-01-24] MEDS ORDERED: KLOR-CON POWDER PACKET PO ONE (12:12)
[2019-01-24] MEDS: GEODON PO PRN (12:36)
--- NOTE | 2019-01-24 12:59 | INFECTIOUS DISEASE PROGRESS NO ---
DATE: 01/24/2019 PRESENT ILLNESS: The patient has a methicillin-resistant Staphylococcus aureus and Acinetobacter left heel osteomyelitis. MEDICATIONS: The patient has been on a week of antibiotic therapy for his heel osteomyelitis. Currently, the patient is receiving a combination of daptomycin and cefepime. PHYSICAL EXAMINATION: Vital Signs: Temperature is 98.5 degrees, pulse 71, respirations 13, blood pressure 133/61. General: This is an ill-appearing, elderly male. Today, he is awake but he tries to get out of bed and sometimes he appears to be incoherent. Head, Eyes, Ears, Nose, and Throat: He can hear my spoken words and see near objects. He does not have any white coating on his tongue. Neck: No meningismus. Lungs: Clear to auscultation. Cardiovascular: Heart rate is regular. Abdomen: Soft and nontender. Bones, Joints, and Muscles: The patient's left heel has an ulcerated area which now appears to be larger than it was 3 to 4 days ago. There is no surrounding erythema. In the wound itself, there is some beefy red tissue but no purulence. LAB AND X-RAY STUDIES: CBC shows a white count of 4330, hemoglobin 8.3, platelet count 82,000. Creatinine is 0.9. GFR is greater than 60. ASSESSMENT AND PLAN: As regarding the patient's antibiotics for his heel osteomyelitis, the patient does have a methicillin-resistant Staphylococcus aureus. He is 88 years old and I am hesitant to put him on vancomycin because I think there is a definite risk that it could cause either renal or ototoxicity. As regarding the patient's Acinetobacter heel osteomyelitis, the patient was on cefepime but his platelets dropped so I discontinued cefepime and put the patient on aztreonam. I did not want to use Levaquin because the patient is on amiodarone, and Levaquin and amiodarone can cause an enhanced risk of prolonged elongation of the QT interval. I had discussed with the patient, while he was coherent, about treatment of his heel and tried to explain to him that it would be best to have antibiotics through the vein. I discussed with the patient his antibiotics. I told him it would be best to treat with the two intravenous antibiotics that I have him on rather than antibiotics by mouth because he has osteomyelitis. The patient said that he did not want intravenous antibiotics. He just wanted them by mouth. As regarding the duration of treatment, because the patient has methicillin- resistant Staphylococcus aureus osteomyelitis, he will need to have 8 weeks of treatment. COMORBIDITIES: He is elderly. He has non-Hodgkin's lymphoma. He has diastolic heart failure, depression, dementia and alcohol use. ADDENDUM: I talked with the patient's oldest son who said he wants his father to receive IV antibiotics. cc: Doroteo Wells MD MTDGustavo
--- NOTE | 2019-01-24 15:21 | PROGRESS NOTE ---
DATE: 01/24/2019 Supplementary note. Patient admitted with sepsis. He has had issues with confusion, agitation. This has improved somewhat with the treatment of his underlying infection but he continues to be at least moderately confused pretty much all the time. The hospital is not the ideal situation to evaluate this but all his issues and history provided by family are consistent with at least moderate dementia. During the time I have been treating him patient has always known who he is but only sometimes where he is and never when he is. He may have some continued improvement as his acute issues resolve but given his history, reports of memory issues at home prior to any acute illness, and the progressive nature of dementia, it is unlikely that patient will have the capacity to safely make decisions for himself. Given his numerous underlying medical issues,it is also likely the patient will have further acute illnesses in the future so even if he does have some improvement it is highly likely he will have further episodes of major confusion and need assistance with decision making. GETACHEW
[2019-01-24] MEDS: SANTYL OINT TOP SCH (15:29)
--- NOTE | 2019-01-24 15:48 | PROGRESS NOTE ---
DATE: 01/24/2019 INTERVAL HISTORY: The patient remains pleasantly confused. Remains out of restraints since last night, although has to be monitored quite closely as he continues to think that he can do more than he can. No new complaints. REVIEW OF SYSTEMS: A 12 point Review of Systems negative except as per internal history. LABORATORY: Sodium 143, potassium 3.1, BUN 12, and creatinine 0.9. Glucose 84. PHYSICAL EXAMINATION: Vitals: T-max 98.7 degrees, pulse 85, respirations 16, blood pressure 108/52, O2 sat 100% on room air. General: No acute distress. HEENT: Normocephalic and atraumatic. Moist mucous membranes. No cervical adenopathy. Cardiovascular: Regular rate and rhythm. No murmurs noted. Pulmonary: Clear to auscultation bilaterally. Abdomen: Soft, nontender, and nondistended. Bowel sounds positive. Extremities: Peripheral pulses remain decreased but intact. No clubbing or cyanosis. Neurologic: Cranial nerves grossly intact. Mild global weakness, stable. No focal deficits. Psychiatric: Patient awake, alert, and cooperative, and answers most questions appropriately, but oriented to person and place only. ASSESSMENT AND PLAN: 1. DVT, left upper extremity. Patient transitioned to [facility]. Monitor. 2. Left heel ulcer with possible osteomyelitis. Infectious Disease following. They plan on continuing him on daptomycin and aztreonam. We will work on getting PICC line, but may be difficult to find placement for jail antibiotics. We will continue discussion with case management and monitor. 3. Demand ischemia/type 2 NE. Patient with initially mildly elevated troponin and right bundle branch block. Evaluated by Cardiology. They did not feel that this was ACS, but rather demand ischemia due to his other medical issues as above. 4. Paroxysmal atrial fibrillation. The patient largely in sinus rhythm during hospitalization. Monitor. 5. Left knee edema likely arthritis-related arthrocentesis performed but did not show infection. 6. Chronic alcohol abuse. No drink for 3 to 4 weeks. No sign of withdrawal. Monitor. 7. Dementia with occasional agitation. Restraints for approximately 15 hours at this point. No major agitation, but does occasionally think he can do more than he can. Continue to monitor closely. Try to redirect. Cardon available. 8. Generalized weakness and deconditioning. Continue physical therapy while here. Work on rehab placement ongoing. Hopeful for Monday. 9. Hypernatremia resolved with D5. He has been off fluids for a day or so now with slight up trend in sodium, but okay so far. Continue to monitor. Encourage p.o. intake. 10. Hypokalemia. Low again today. We will further replete and monitor. 11. Disposition: Patient is largely medically stable but will need PICC line and a place to go. It has been difficult so far. Can't go today or tomorrow because of recent need for restraints. We will shoot for Monday if possible.
--- NOTE | 2019-01-24 16:28 | INFECTIOUS DISEASE PROGRESS NO ---
DATE: 01/22/2019 PRESENT ILLNESS: Patient is being treated for a Methicillin resistant staphylococcus aureus and Acinetobacter heel osteomyelitis. Also in the past few days the patient's platelet count has been dropping. MEDICATIONS: The patient currently is receiving daptomycin and cefepime. This is day 4 of treatment with both agents. PHYSICAL EXAMINATION: Vital Signs: Temperature is 98.6 degrees, pulse 75, respirations 15, blood pressure 118/49. General: This is an ill-appearing, elderly male. He seems to be in a delirium. Head, Eyes, Ears, Nose, and Throat: No drainage from the nose or ears. I did not get a good look at the patient's oral cavity. Neck: No meningismus. Lungs: Clear to auscultation. Cardiovascular: Heart rate is regular. There was one time when I thought there was a premature beat. Abdomen: Soft and nontender. Extremities: Left knee is less swollen than it was prior to the arthrocentesis. The patient's left heel shows a wound that is not erythematous or purulent and is getting smaller and it is on the patient's posterior part of his heel. LAB AND X-RAY STUDIES: There is no new radiographic study today. CBC shows a white count of 4310, hemoglobin 8.7, platelet count 78,000. Creatinine is 0.9. GFR is greater than 60. Liver function studies are normal. ASSESSMENT AND PLAN: The patient has heel osteomyelitis. Also the patient's platelets are dropping. I am going to continue with daptomycin and substitute aztreonam for cefepime. The cefepime may be causing a low platelet count. I could put the patient on Levaquin as a possibility but the patient is on amiodarone which can have a serious reaction when both are given together. Also the Acinetobacter is susceptible to Septra but in a patient that is older like Mr. Person I think it is not a good idea to use sulfa and also it could cause decrease in platelet count too. COMORBIDITIES: He is elderly. He has lymphoma and heart failure and drinks alcoholic beverages. cc: Doroteo Wells MD
[2019-01-24] MEDS: ATIVAN IV PRN (16:44)
[2019-01-24] MEDS: GEODON IM PRN (19:12)
[2019-01-24] MEDS: STERILE WATER INJ. INJ PRN (19:13)
[2019-01-24] MEDS: CUBICIN 500 MG in NS 100 ML IV SCH (23:46)
[2019-01-25] MEDS: GEODON IM PRN ×2 (00:21→15:46)
[2019-01-25] MEDS: ATIVAN IV PRN ×3 (03:28→21:04)
[2019-01-25 07:43] LABS: AGAP 7; BUN 15 mg/dL (8-22); CHLORIDE 106 mmol/L (98-107); COSMO 286; CREATININE 0.8 mg/dL (0.7-1.2); ESTIMATED GFR > 60; GLUCOSE 98 mg/dL (70-104); POTASSIUM 3.2 mmol/L (3.5-5.1); SODIUM 143 mmol/L (136-145); TCO2 30 mmol/L (25-35)
[2019-01-25] MEDS ORDERED: POTASSIUM CHLORIDE 60 MEQ in NS 500 ML IV ONE (07:45)
--- NOTE | 2019-01-25 09:00 | PROGRESS NOTE ---
DATE: 01/22/2019 INTERVAL HISTORY: Patient remains mildly but pleasantly confused. More awake than yesterday and conversant. Largely cooperative although tends to wander off and/or fall asleep. No acute events overnight. No new complaints. REVIEW OF SYSTEMS: A 12-point review of systems negative except as per internal history. LABORATORY: WBC 4.3, hemoglobin 8.7, hematocrit 20.4, platelets 78, sodium 147, potassium 3.5, BUN 12, and creatinine 1.9. VITALS: T-max 98.6, pulse 64, respirations 15, blood pressure 113/65, O2 sat 97% on room air. PHYSICAL EXAMINATION: General: No acute distress. Vitals: As above. HEENT: Normocephalic and atraumatic. Moist mucous membranes. No cervical adenopathy. Cardiovascular: Regular rate and rhythm. No murmurs noted. Pulmonary: Clear to auscultation bilaterally. No wheezing, rales or rhonchi noted. Abdomen: Soft, nontender, and nondistended. Bowel sounds positive. Extremities: Peripheral pulses decreased but intact. Left heel heavily bandaged. Shallow ulcer on right medial first MCP joint. Significant eschar but dry, intact. No drainage. No erythema or other sign of infection. Neurologic: Cranial nerves grossly intact. Some global weakness but no focal deficits noted. Psychiatric: Patient arouses easily to voice. Largely awake and alert although does tend to drift back to sleep intermittently and occasionally questions have to be asked multiple times. Responses are largely appropriate although he is oriented only to person and place. Other responses display significant confusion. Skin: No new rashes or lesions identified. ASSESSMENT AND PLAN: 1. Left lower extremity DVT. Patient on Lovenox b.i.d. edema appears to be improving. If continues to improve then may be able to transition to p.o. blood thinners tomorrow. 2. Elevated troponin with new right bundle branch block. Likely type 2 CO/dermato ischemia. Has been evaluated by Cardiology and they do not feel this represents acute coronary syndrome. Continue to manage medically. 3. Left heel ulcer with infection with MRSA and Acinetobacter. ID following. Will await final antibiotic recommendations. 4. Left knee edema status post arthrocentesis. Initially some concern for a septic joint but cell counts and culture do not support this. 5. Paroxysmal atrial fibrillation. Has been in largely sinus rhythm on this admission. Continue to monitor. On anticoagulation for DVT as above. 6. Chronic alcohol abuse. Reportedly patient stopped drinking three to four weeks ago. No signs of withdrawal. Continue to monitor. 7. Dementia with some metabolic encephalopathy. Encephalopathy likely due to acute infection as well as above. Per family, patient has had bouts of confusion at home as well. Does appear to be improving somewhat. Continue to monitor. 8. Generalized weakness and physical deconditioning. Continue physical therapy. 9. Hypernatremia, improving somewhat with D5. Continue to monitor. If patient will awake enough to take adequate fluids by mouth, then will try stopping fluids tomorrow. 10.Hypokalemia, improved since adding potassium to his fluids. DISPOSITION: Patient stable from an infection standpoint. Awaiting ID recommendations but suspect he can be transitioned to p.o. soon versus obtaining PICC line to continue home IV antibiotics. Patient's mental status is still somewhat of a barrier but he does appear to be improving. If he continues to arouse and will take adequate by mouth fluids then we will stop IV fluids and shoot for discharge tomorrow or if everything else remains stable. HUTCHINGS PSYCHIATRIC CENTERGustavo
[2019-01-25] MEDS: ELIQUIS PO SCH ×2 (09:48→21:05)
[2019-01-25] MEDS: CORDARONE PO SCH (09:49)
--- NOTE | 2019-01-25 09:59 | DISCHARGE SUMMARY ---
ADMISSION DATE: 01/15/2019 DISCHARGE DATE: 01/25/2019 Please note, this patient is being discharged to an LTAC. ADMISSION DIAGNOSES: 1. Elevated troponin with new right bundle-branch block. 2. Elevated D-dimer. 3. Recent left hip nailing. 4. Left knee edema. 5. Nonhealing ulcer to left foot. 6. History of atrial fibrillation. 7. History of non-Hodgkin's lymphoma. 8. Chronic alcohol use. DISCHARGE DIAGNOSES: 1. Left upper extremity deep venous thrombosis. 2. Left heel ulcer with possible osteomyelitis. 3. Demand ischemia type 2 myocardial infarction. 4. Paroxysmal atrial fibrillation, largely in sinus rhythm during hospitalization. 5. Left knee edema, likely arthritis-related arthrocentesis performed, but did not show infection. 6. Chronic alcohol abuse with no drink in 3 to 4 weeks, and no signs of withdrawal. 7. Dementia with occasional agitation. 8. Generalized weakness and deconditioning. 9. Hyponatremia, resolved. 10. Hypokalemia, repleted, but remains low at 3.2 today. SUMMARY OF FINDINGS: This is an 88-year-old male who presents to the emergency room with his son, stating that he was evaluated by his home health nurse the day prior, and found to have low blood sugar, swelling around his left knee, and a fever of 103, and one other time 104. Refused to come to the emergency room on the night prior, but this morning the son insisted, and therefore he came in for evaluation. On 11/15/2018, he underwent a repair of the left comminuted intertrochanteric hip fracture. He refused to go to rehab. Went home with physical therapy and home health. Has been sedentary a great deal of the time, according to the patient. He was found to have a new right bundle-branch block, and we consulted Cardiology. We did a pulmonary arteriogram that showed no evidence of pulmonary embolism. We did a bilateral lower extremity venous Doppler that showed an extensive acute DVT of the left lower extremity. He has been placed on Eliquis 5 mg p.o. b.i.d. We did consult Hematology, who has been following this patient. We did a bone scan on 01/18/2019 that showed the possibility of osteomyelitis in the left heel could not be excluded. The findings would also be consistent with a non-osteomyelitis inflammatory process. Infectious Disease was consulted, and it was noted that his wound culture grew a methicillin-resistant Staph aureus and Acinetobacter. He was continued on a combination of daptomycin and cefepime, and it is now felt that he can safely be discharged to an LTAC to receive the remainder of his acute care treatment for his multiple medical conditions. DISCHARGE MEDICATIONS TO LTAC: Will include amiodarone 200 mg p.o. daily, Eliquis 5 mg p.o. b.i.d., Zydelig 100 mg p.o. b.i.d., quetiapine 25 mg p.o. at bedtime, aztreonam 2 grams IJ every 8 hours (#20), daptomycin 500 mg IV every 24 hours (#20). FOLLOWUP: Upon completion of his stay at LTAC, he will need to follow up with his [facility] clinical programmer. He will also need home healthcare most likely at the conclusion of the LTAC stay, but that will be set by their facility at that time. TIME SPENT: A 35-minute discharge. Dictated by MARTÍN Akers for Luis Vergara MD cc: MARTÍN Akers Agree with the above. the following is my own face to face assessment. patient still with at least mild confusion when examined but overall stable. anticipated discharge to LTAC but they have now decided against taking him because of his PO lymphoma treatment. MTDD
[2019-01-25] MEDS: AZACTAM 2 GM in NS 100 ML IV SCH ×2 (11:07→17:18)
[2019-01-25] MEDS: PATIENT'S OWN MED PO SCH ×2 (11:31→21:05)
--- NOTE | 2019-01-25 13:40 | INFECTIOUS DISEASE PROGRESS NO ---
DATE: 01/23/2019 PRESENT ILLNESS: The patient has a methicillin-resistant Staphylococcus aureus and Acinetobacter heel osteomyelitis. MEDICATIONS: The patient is receiving a combination of daptomycin and aztreonam. The patient has been on antibiotics now for 5 days to treat his heel osteomyelitis. PHYSICAL EXAMINATION: Vital signs: Temperature 98.6, pulse 65, respirations 18, blood pressure 114/51. General: This is an ill-appearing elderly male. Today he is much more alert and talking coherently. HEENT: He can hear my spoken words and see near objects. He does not have any white coating of his tongue. Neck: He does not have any neck pain when he moves his head or moves his neck. Lungs: Clear to auscultation. Cardiovascular:Regular heart rate. Abdomen: Soft and nontender. Extremities: The left knee effusion appears to be clearing. The patient's left heel has a small wound that is not draining and there is no surrounding erythema. The patient's knee was at one time fluctuant but it is less swollen now. The patient has on his right foot a black eschar and there is no erythema surrounding it. Neurologic: The patient is awake today, much more so than he has been recently. He was able to talk in a coherent fashion. He can move his extremities. There is no tremor. LABORATORY AND X-RAY: I do not see any radiographic studies done today. The patient's laboratory tests show a CBC with a white count of 4330, hemoglobin 8.3, platelet count 82,000, creatinine 0.9, GFR was greater than 60. The patient's CK is 69. ASSESSMENT AND PLAN: The patient has left heel osteomyelitis. I plan to continue the patient on the antibiotics for a total of 6 weeks. The patient has been on antibiotics now for his heel osteomyelitis for 5 days. COMORBIDITIES: The patient is elderly and he drinks alcoholic beverages. He has a history of lymphoma, atrial fibrillation, heart failure, and depression as well as alcoholism. cc: Doroteo Wells MD
--- NOTE | 2019-01-25 15:02 | PROGRESS NOTE ---
DATE: 01/25/2019 INTERVAL HISTORY: Patient still with some intermittent worsening confusion and agitation, but overall pretty stable. Agitation improved somewhat on p.r.n. Geodon. Initially, anticipated discharge to LTAC today but LTAC reviewed patient's medications, and refused to take them based on his maintenance chemo for his underlying low-grade non-Hodgkin's lymphoma. No other acute events and no new complaints. REVIEW OF SYSTEMS: Twelve point review of systems negative except as per interval history. LABORATORY: Sodium 143, potassium 3.2, BUN 15, creatinine 0.8 and glucose 98. VITALS: T-max 98.7, pulse 59, respirations 15, blood pressure 119/55 and O2 saturation 100% on room air. PHYSICAL EXAMINATION: General: No acute distress. Vitals: As above. HEENT: Normocephalic, atraumatic. Moist mucous membranes. No cervical adenopathy. Cardiovascular: Regular rate and rhythm. No murmurs noted. Pulmonary: Clear to auscultation bilaterally. Abdomen: Soft, nontender, nondistended. Bowel sounds positive. Extremities: Peripheral pulses remain decreased but intact. No clubbing or cyanosis. Neurologic: Cranial nerves grossly intact. Still with mild to moderate global weakness, but no focal deficits identified. Psychiatric: Patient asleep but arousable. Cooperative. Oriented to person only today. ASSESSMENT AND PLAN: 1. Left upper extremity deep venous thrombosis. Patient on Eliquis. Monitor. 2. Left heel ulcer with possible osteomyelitis. Infectious Disease following. They plan on continuing him on a 6 weeks course of daptomycin and aztreonam. Initially, planned on discharge to LTAC, but this has fallen through. Search for placement ongoing. 3. Demand ischemia/type 2 VT. Patient with initially mildly elevated troponin, but trended down. Evaluated by Cardiology who felt that this was demand ischemia and not ACS. Managing medically. 4. Dementia with occasional agitation. Patient does have sundowning many days. Some improvement with p.r.n. Geodon. We will try scheduling a little P.M. Seroquel and see if this helps. 5. Paroxysmal atrial fibrillation. Patient has sinus rhythm during this hospitalization. Monitor. 6. Left knee edema. Likely arthritis or fall related. Arthrocentesis did not show any sign of infection. 7. Chronic alcohol abuse. No drink for 3 to 4 weeks prior to admission. No sign of withdrawal at this point. Monitor. 8. Generalized weakness and deconditioning. Continue PT while here. Working on rehab/LTAC placement. 9. Hypernatremia resolved with D5 initially. Has been off of fluids for a couple of days, and sodium essentially stable. Continue to monitor. 10. Hypokalemia. Low again today. Will further replete and monitor.
[2019-01-25] MEDS: SANTYL OINT TOP SCH (17:18)
--- NOTE | 2019-01-25 18:13 | INFECTIOUS DISEASE PROGRESS NO ---
DATE: 01/25/2019 PRESENT ILLNESS: The patient has a methicillin-resistant Staphylococcus aureus and Acinetobacter left heel osteomyelitis. MEDICATIONS: The patient has completed 7 days of treatment with the combination of daptomycin and cefepime. PHYSICAL EXAMINATION: Vital Signs: Temperature is 97.8 degrees, pulse 59, respirations 15, blood pressure 119/55. General: This is an ill-appearing, elderly male. He seems to be in some sort of trance. His eyes are closed. He does not respond to verbal stimuli. There is no tremor. Head, Eyes, Ears, Nose, and Throat: I did not see any drainage from the nose or ears. Neck: The patient did not appear to have any pain when I moved his neck or head. Lungs: Clear to auscultation. Cardiovascular: Heart rate is regular. Abdomen: Soft and nontender. Bones, Joints, and Muscles: I removed the dressing from the patient's left heel. The ulcerated area is the same in size. There is some slough in the wound itself. Neurologic: As mentioned above, the patient seems to be in some sort of trance. He does not respond to verbal stimuli. His eyes are closed. He does not move his extremities. LAB AND X-RAY: The creatinine is 0.88. There is no other lab other than that and there is no new radiographic study done today. ASSESSMENT AND PLAN: The patient has osteomyelitis of the left heel. Plan is to continue with his current antibiotics. COMORBIDITIES: He is elderly. He has non-Hodgkin's lymphoma. He also has heart failure, depression, dementia, and alcohol use. cc: Doroteo Wells MD
[2019-01-25] MEDS: CUBICIN 500 MG in NS 100 ML IV SCH (21:04)
[2019-01-25] MEDS: SEROQUEL PO SCH (21:05)
[2019-01-26] MEDS: AZACTAM 2 GM in NS 100 ML IV SCH ×3 (01:50→16:13)
[2019-01-26] MEDS: CORDARONE PO SCH (10:03)
[2019-01-26] MEDS: ELIQUIS PO SCH ×2 (10:03→20:45)
[2019-01-26] MEDS: SANTYL OINT TOP SCH (10:04)
[2019-01-26] MEDS: PATIENT'S OWN MED PO SCH ×2 (10:04→20:45)
--- NOTE | 2019-01-26 19:39 | PROGRESS NOTE ---
DATE: 01/26/2019 INTERVAL HISTORY: No acute events overnight. There was a mention of pulse of 47. However, he was normotensive. I had an extensive discussion with the patient's family. Apparently, patient does not have any significant alcohol history to their knowledge, and it has been charted inappropriately in the records as per the patient's family. SUBJECTIVE: The patient is alert and oriented to himself, not with the situation. Denies being in any significant discomfort at the moment. VITALS: Temperature 97.8 degrees, pulse of 82, respiratory rate 20, blood pressure 188/68, saturating 96% on room air. PHYSICAL EXAMINATION: General: He does not appear in any acute distress. Mouth: Oral cavity is moist. Lungs: Air entry bilaterally equal. No wheeze, rhonchi, crackles. Heart: S1 normal. No murmur or gallop. Abdomen: Soft, nontender. Extremities: He does not appear to have lower extremity edema. He does have bilateral upper extremity resting tremor. He has multiple sacral decubitus ulcer about stage II, which were bleeding, which are dressed. He also has a left heel ulcer which is dressed. LABS: No CBC today. No BMP today. ASSESSMENT AND PLAN: 1. Left lower extremity extensive deep venous thrombosis. Continue the patient on Eliquis on 5 mg twice daily dosing. Unclear if he was receiving 10 mg twice daily dosing before that. 2. Left heel suspected osteomyelitis with Staphylococcus aureus methicillin- resistant and Acinetobacter baumannii. Continue intravenous daptomycin and aztreonam as per Infectious Disease recommendation for a total of 6 weeks. 3. Type 2 myocardial infarction because of demand/supply mismatch. Conservative medical management recommended by Cardiology. 4. History of atrial fibrillation requiring cardioversion in 2010. Continue home amiodarone. 5. Dementia with behavioral disturbance. Continue current dose of quetiapine as needed, ziprasidone as needed, lorazepam. Follow up electrocardiogram tomorrow to monitor for QT interval prolongation. 6. History of low-grade non-Hodgkin's lymphoma. He was on chemotherapy outpatient, which has been held. I will discuss with Hematology/Oncology about stopping his therapy considering his dementia and long-term prognosis, so that we can send him to long-term acute care. 7. Disposition: Apparently patient could not go to long-term acute care yesterday. The patient's family tells me that it was because he was on active chemotherapy and they would like him to be taken off chemotherapy if Hematology/Oncology agrees considering his long-term prognosis and dementia. Accordingly, Hematology/Oncology should be reconsulted on Monday to see if he could be taken off chemotherapy. If Hematology/Oncology agrees then, with coordination with clinical social work aide team, again another attempt should be made to discharge him to long-term acute care. If the plan is to continue him on chemotherapy, then placement to other facility needs to be figured out. Apparently, the patient does not have history of chronic alcohol abuse as per the family, and he was always an occasional drinker, maybe once per week. Family has requested me to take this off his problem list. Plan of care discussed with the patient's family. All of their questions have been satisfactorily answered. cc: Cj Brennan MD MTDD
[2019-01-26] MEDS: CUBICIN 500 MG in NS 100 ML IV SCH (20:44)
[2019-01-26] MEDS: SEROQUEL PO SCH (20:46)
[2019-01-26] MEDS: ATIVAN IV PRN (20:46)
[2019-01-27] MEDS: AZACTAM 2 GM in NS 100 ML IV SCH ×3 (03:58→18:42)
--- NOTE | 2019-01-27 04:18 | DISCHARGE SUMMARY ---
ADMISSION DATE: 01/15/2019 DISCHARGE DATE: CORRECTION REPORT: In the discharge diagnosis, it was dictated as a left upper extremity DVT. It should actually say left lower extremity DVT. The rest of the previous discharge summary is correct. Summary of findings do dictate that he had a extensive DVT acute of the left lower extremity. Dictated by MARTÍN Akers for Luis Vergara MD cc: MARTÍN Akers
[2019-01-27 07:20] LABS: BASO# 0.03 X1000 (0.0-0.2); BASO% 0.7 % (0.0-0.8); EOS# 0.04 X1000 (0.0-0.7); EOS% 0.9 % (0.0-10.0); HEMATOCRIT 25.7 % (42.0-52.0); HEMOGLOBIN 7.9 g/dL (14.0-18.0); IMM GRAN# 0.09 X1000 (0.0-0.04); LYMPH# 2.31 X1000 (1.2-3.4); MCH 30.3 PG (27-31); MCHC 30.7 g/dL (33-37); MCV 98.5 FL (81-99); MONO# 0.38 X1000 (0.11-0.59); MONO% 8.6 % (1.7-9.3); MPV 11.2 FL (7.4-10.4); NEUT# 1.59 X1000 (1.4-6.5); NEUT% 35.8 % (42.2-75.2); PLT 88 X1000 (130-400); RBC 2.61 XMIL (4.7-6.1); RDW 17.4 % (11.5-14.5); WBC 4.44 X1000 (4.8-10.8)
[2019-01-27 07:31] LABS: BANDS 2 % (0-1); EOS 2 % (1-10); LYMPHS 46 % (21-51); MONO 4 % (1-9); SEGS 46 % (42-75)
[2019-01-27] MEDS: CORDARONE PO SCH (09:50)
[2019-01-27] MEDS: ELIQUIS PO SCH ×2 (09:51→21:14)
[2019-01-27] MEDS: PATIENT'S OWN MED PO SCH ×2 (09:51→21:15)
[2019-01-27] MEDS: SANTYL OINT TOP SCH (09:51)
--- NOTE | 2019-01-27 12:11 | PROGRESS NOTE ---
DATE: 01/27/2019 SUBJECTIVE: The patient has no new changes. PHYSICAL EXAMINATION: vital signs: He is afebrile, pulse 67, respiratory rate 21, BP 134/65. General: The patient is awake, alert, in no distress. CARDIOVASCULAR: Regular rate. Chest: Clear, nonlabored. No wheezing. No rhonchi. Abdomen: Soft, nondistended. Extremities: Moves all extremities. Does not appear to have any edema. Left heel ulcer is dressed and bandaged. ASSESSMENT: 1. Left lower extremity deep venous thrombosis. Continue Eliquis. 2. Left heel ulceration. We will continue IV daptomycin and aztreonam per Infectious Disease. 3. Coronary syndrome secondary to mismatch of supply and demand. 4. History of atrial fibrillation with cardioversion. 5. Dementia with behavioral disturbances. 6. History of low-grade non-Hodgkin's lymphoma. PLAN: The patient currently is stable. Can discharge to rehab. However, we are awaiting discussion with Hem/Onc regarding his treatment and his therapy and whether to stop his chemotherapy or not. We will continue to follow. Hopefully home over the next 1 or 2 days. cc: Jeremias Bhatti MD MTDD
--- NOTE | 2019-01-27 15:08 | INFECTIOUS DISEASE PROGRESS NO ---
DATE: 01/27/2019 PRESENT ILLNESS: The patient has a possible methicillin-resistant Staphylococcus aureus and Acinetobacter left heel osteomyelitis. MEDICATIONS: This is the 7th day of treatment with antibiotics for his heel infection. Currently, the patient is on a combination of daptomycin and aztreonam. PHYSICAL EXAMINATION: Vital Signs: Temperature is 97.4 degrees, pulse 67, respirations 21, blood pressure is 119/63. General: This is an ill-appearing, elderly male. He is in no acute distress. Today he is awake and verbal. Head/eyes/ears/nose/throat: He appears to be able to hear my spoken words and see near objects. He does not have any white coating of his tongue. Neck: He did not have any pain in his neck when I asked him to move his neck or head. Lungs: Clear to auscultation. Cardiovascular: Heart rate today was irregular part of the time and sometimes it was regular. Abdomen: Soft and nontender. Extremities: I removed the dressing from the patient's left heel. The ulcerated area is about the same size. It does not have any surrounding erythema. Some of the tissue is devitalized. There is no definite necrosis or purulence. Neurologic: As mentioned above, today the patient is more alert than he was the last time I saw him. He was able to carry on a conversation. He did move his extremities to request. LAB AND X-RAY: CBC shows a white count of 4440, hemoglobin 7.9, and platelet count 88,000. Creatinine is 0.8. GFR is greater than 60. There is no new radiographic study for today. ASSESSMENT AND PLAN: Patient has possible osteomyelitis of the left heel. My plan now is to continue his current antibiotics. For tomorrow I am going to get a CK level. COMORBIDITIES: The patient is elderly, he has non-Hodgkin lymphoma, heart failure, depression, dementia, and alcohol use. cc: Doroteo Wells MD
[2019-01-27] MEDS: CUBICIN 500 MG in NS 100 ML IV SCH (21:14)
[2019-01-27] MEDS: SEROQUEL PO SCH (21:14)
[2019-01-28] MEDS: AZACTAM 2 GM in NS 100 ML IV SCH ×4 (00:37→23:41)
[2019-01-28 07:34] LABS: HEMATOCRIT 23.4 % (42.0-52.0); HEMOGLOBIN 7.2 g/dL (14.0-18.0); MCH 30.4 PG (27-31); MCHC 30.8 g/dL (33-37); MCV 98.7 FL (81-99); MPV 11.7 FL (7.4-10.4); NEUT% 29.2 % (42.2-75.2); PLT 87 X1000 (130-400); RBC 2.37 XMIL (4.7-6.1); RDW 18.1 % (11.5-14.5); WBC 3.52 X1000 (4.8-10.8)
[2019-01-28 07:35] LABS: BASO# 0.03 X1000 (0.0-0.2); BASO% 0.9 % (0.0-0.8); EOS# 0.04 X1000 (0.0-0.7); EOS% 1.1 % (0.0-10.0); IMM GRAN# 0.14 X1000 (0.0-0.04); MONO# 0.38 X1000 (0.11-0.59); MONO% 10.8 % (1.7-9.3); NEUT# 1.03 X1000 (1.4-6.5)
[2019-01-28 07:40] LABS: AGAP 8; BUN 23 mg/dL (8-22); CALCIUM 8.9 mg/dL (8.8-10.2); CHLORIDE 111 mmol/L (98-107); CK TOTAL 49 U/L (24-204); COSMO 292; ESTIMATED GFR > 60; GLUCOSE 91 mg/dL (70-104); POTASSIUM 3.6 mmol/L (3.5-5.1); SODIUM 145 mmol/L (136-145); TCO2 26 mmol/L (25-35)
--- NOTE | 2019-01-28 09:30 | INFECTIOUS DISEASE PROGRESS NO ---
DATE: 01/28/2019 PRESENT ILLNESS: The patient has a possible methicillin-resistant Staphylococcus aureus and Acinetobacter left heel osteomyelitis. MEDICATIONS: This is the eighth day of treatment with antibiotics for the infection. Currently, the patient is still receiving daptomycin, but he was switched to aztreonam because his platelets were dropping when he was getting cefepime. PHYSICAL EXAMINATION: Vital Signs: Temperature is 98 degrees, pulse 51, respirations 20, blood pressure 95/48. General: This is an ill-appearing, elderly male. Today, he is very lethargic, which is much different than the way he appeared yesterday. HEENT: No drainage noted from the nose or ears. His eyes are closed. Neck: No meningismus. Lungs: Clear to auscultation. Cardiovascular: The heart rate today was regular. Abdomen: Soft and nontender. Extremities: The left knee is not swollen. I looked at the patient's left heel, and it does have an ulcerated area. It is about the same size as it was yesterday. There is some purulence in the middle of the wound. It does not go deep. Neurologic: As mentioned above, today the patient is obtunded. He did not respond to verbal stimuli. He does not have a tremor. LABORATORY DATA: CBC shows a white count of 3520, hemoglobin 7.2, and platelet count 87,000. Creatinine is 1. GFR is greater than 60. CK is 49. ASSESSMENT AND PLAN: The patient has possible osteomyelitis of the left heel. For now, I am going to continue his current antibiotics. He will need an 8-week treatment with the daptomycin because the patient had a methicillin-resistant Staphylococcus aureus organism, and the newest guidelines are to treat for 8 weeks for an osteomyelitis with that organism. As regarding the Acinetobacter organism, the patient will require a 6-week treatment. COMORBIDITIES: The patient is elderly. He has non-Hodgkin's lymphoma, heart failure, depression, dementia, and alcohol use. cc: MD GETACHEW Calvert
[2019-01-28] MEDS: CORDARONE PO SCH (10:04)
[2019-01-28] MEDS: ELIQUIS PO SCH ×2 (10:04→20:36)
[2019-01-28] MEDS: PATIENT'S OWN MED PO SCH ×5 (10:05→20:37)
[2019-01-28] MEDS: SANTYL OINT TOP SCH (10:16)
--- NOTE | 2019-01-28 12:39 | PROGRESS NOTE ---
DATE: 01/28/2019 SUBJECTIVE: He is not as responsive this morning. Family had difficulty arousing him. He has not gotten anything for sedation, except for the Seroquel which presumably had been started for . In any case, the patient when I saw him did open his eyes and look, but he did not really do much other moving around. OBJECTIVE: Blood pressure 96/49, heart rate 51, respiratory rate 18, temperature 97.8 degrees, 97% on room air. Cardiovascular: Regular rate and rhythm. Pulmonary: Bilateral breath sounds clear to auscultation. Gastrointestinal: Soft, nondistended. Bowel sounds are positive. LABORATORY DATA: White count is 3.5, hemoglobin 7, hematocrit 23, platelets of 87,000. Creatinine of 1. PROBLEM LIST: 1. Left lower extremity deep vein thrombosis. He is on Eliquis. 2. Left heel ulcer with infection and concern over osteomyelitis. I believe he is on daptomycin and aztreonam per Infectious Diseases. He is on an 8-week treatment and 6- week respectively, and he is on the 8th day today. 3. Dementia with behavioral disturbance. He seems to be a little bit more lethargic today. I am going to cut back his Seroquel and follow. 4. Non-Hodgkin lymphoma. He is currently getting Zydelig, which we will not be able to do LTAC in that setting, although I am not sure why we could not pursue that in just a rehabilitation, but we will work with family and Dr. Acuña about doing LTAC in that setting. cc: Kaushik Lyn MD [facility]
--- NOTE | 2019-01-28 13:29 | EKG Report ---
Test Performed on : 01/27/2019 06:27:08 AM Test Reason : QTc measurement Blood Pressure : / mmHG Vent. Rate : 060 BPM Atrial Rate : 060 BPM P-R Int : 192 ms QRS Dur : 086 ms QT Int : 396 ms P-R-T Axes : 038 -19 -08 degrees QTc Int : 396 ms Normal sinus rhythm. Normal ECG When compared with ECG of 16-JAN-2019 06:16, Sinus rhythm. has replaced Junctional rhythm. Confirmed by Cristofer YOU, Yohannes Brar ([id number]) on 01/28/2019 5:05:49 PM
[2019-01-28] MEDS: NS 500 ML IV SCH (16:00)
[2019-01-28] MEDS: CUBICIN 500 MG in NS 100 ML IV SCH (20:31)
[2019-01-28] MEDS: SEROQUEL PO SCH (20:35)
[2019-01-29 07:46] LABS: BASO# 0.02 X1000 (0.0-0.2); BASO% 0.5 % (0.0-0.8); EOS# 0.03 X1000 (0.0-0.7); EOS% 0.8 % (0.0-10.0); HEMATOCRIT 23.5 % (42.0-52.0); HEMOGLOBIN 7.3 g/dL (14.0-18.0); IMM GRAN# 0.13 X1000 (0.0-0.04); IMM GRAN% 3.4 % (0.0-0.5); LYMPH# 2.13 X1000 (1.2-3.4); LYMPH% 55.2 % (20.5-51.1); MCH 30.4 PG (27-31); MCHC 31.1 g/dL (33-37); MCV 97.9 FL (81-99); MONO# 0.37 X1000 (0.11-0.59); MONO% 9.6 % (1.7-9.3); MPV 11.3 FL (7.4-10.4); NEUT# 1.18 X1000 (1.4-6.5); NEUT% 30.5 % (42.2-75.2); PLT 91 X1000 (130-400); RDW 18.2 % (11.5-14.5); WBC 3.86 X1000 (4.8-10.8)
--- NOTE | 2019-01-29 07:46 | Diag Imaging Result Doc PS360 ---
CHEST-PORTABLE - 01/29/2019 INDICATION: dyspnea COMPARISON: 01/15/2019 FINDINGS: There are heterogeneous patchy infiltrates throughout the left midlung and left lung base. Stable cardiomegaly and pulmonary vascular congestion. Stable blunting of the costophrenic angles suggesting trace pleural effusions. IMPRESSION: Nonspecific patchy infiltrates throughout the left midlung and lung base. Electronically signed by Cruz Sawant 01/29/2019 7:44 AM
[2019-01-29 07:50] LABS: AGAP 6; BUN 27 mg/dL (8-22); CALCIUM 9.1 mg/dL (8.8-10.2); CHLORIDE 113 mmol/L (98-107); COSMO 295; CREATININE 0.8 mg/dL (0.7-1.2); ESTIMATED GFR > 60; GLUCOSE 88 mg/dL (70-104); POTASSIUM 3.7 mmol/L (3.5-5.1); SODIUM 146 mmol/L (136-145); TCO2 27 mmol/L (25-35)
[2019-01-29] MEDS: NS 500 ML IV SCH (08:12)
[2019-01-29] MEDS: ELIQUIS PO SCH ×2 (08:12→21:14)
[2019-01-29] MEDS: CORDARONE PO SCH (08:12)
[2019-01-29] MEDS: AZACTAM 2 GM in NS 100 ML IV SCH (08:12)
[2019-01-29] MEDS: PATIENT'S OWN MED PO SCH ×2 (08:13→21:15)
[2019-01-29] MEDS: SANTYL OINT TOP SCH (08:22)
[2019-01-29] MEDS ORDERED: VANCOMYCIN IV PER PHARMACY MISC SCH (13:30)
--- NOTE | 2019-01-29 14:36 | PROGRESS NOTE ---
DATE: 01/29/2019 SUBJECTIVE: He is much more awake, alert. He still is pretty confused. Not really how sure how well he did with PT today, still very weak. He is confused. I guess we did not do too much today because he had spilled food on himself, so it is kind of hard to decide what his functional status is, although it is fairly poor, unfortunately. OBJECTIVE: Blood pressure 104/52, heart rate 58, respiratory rate 16, temperature 97.6, saturation 99% on room air. Cardiovascular: Regular rate and rhythm. ASSESSMENT AND PLAN: 1. The patient is still somewhat confused. We will continue to monitor him. 2. Deep venous thrombosis of left lower extremity. He is on Eliquis. 3. Left heel ulcer with methicillin-resistant Staphylococcus aureus osteomyelitis. He is on daptomycin and aztreonam. Dr. Wells is following. 4. Dementia. It is kind of a little bit up and down, but he is on Seroquel. 5. Non-Hodgkin's lymphoma. Hematology/Oncology is following. He is currently on Zydelig. DISPOSITION: We are trying to decide about LTAC versus other SNF options. Continue to monitor closely. cc: Kaushik Lyn MD
--- NOTE | 2019-01-29 14:38 | INFECTIOUS DISEASE PROGRESS NO ---
DATE: 01/29/2019 PRESENT ILLNESS: The patient has possible methicillin-resistant Staphylococcus aureus and Acinetobacter left heel osteomyelitis. The patient on chest x-ray has a left lung infiltrate that could be due to pneumonia. MEDICATIONS: This is the 9th day of treatment with antibiotics for the patient's possible heel osteomyelitis. PHYSICAL EXAMINATION: Vital Signs: Temperature is 97.6 degrees, pulse 58, respirations 16, blood pressure 104/52. Generally, this is an ill-appearing elderly male. Today he is awake and is able to carry on a conversation. Head, Eyes, Ears, Nose, and Throat: No drainage noted from the nose or ears. He does not have any white coating on his tongue. Neck: He does not have any neck pain when he moves his head or neck. Lungs: Clear to auscultation. Cardiovascular: Heart rate is regular. Abdomen: Soft and nontender. Extremities: The patient's left knee is not swollen, and it does not cause the patient pain when he bends his knee. The patient's left heel wound has a dressing and the dressing is intact. Neurologic: Patient is awake. He can move his extremities. There is no tremor. DIAGNOSTIC STUDIES: Chest x-ray shows a left lung infiltrate. The CBC shows a white count of 3860, hemoglobin 7.3, and platelet count 91,000. Creatinine is 0.8, GFR is greater than 60. ASSESSMENT AND PLAN: 1. Patient has a possible osteomyelitis of the heel. 2. He also has a possible pneumonia. We have switched his antibiotics from aztreonam and daptomycin to Zosyn and vancomycin. This is the 9th day of treatment for the heel infection, and this will be the first day of treatment for the patient's pulmonary infiltrate as seen on chest x-ray. I have also ordered a procalcitonin level to help determine whether the patient has pneumonia or some other cause of the left lung infiltrate. COMORBIDITIES: 1. The patient is elderly. 2. He also has a lymphoma. 3. Heart failure. 4. Depression. 5. Dementia. 6. Alcohol use. cc: Doroteo Wells MD
[2019-01-29] MEDS: ZOSYN 3.375 GM in NS 50 ML IV SCH ×2 (15:04→21:14)
[2019-01-29] MEDS: SEROQUEL PO SCH (21:14)
[2019-01-30] MEDS: ZOSYN 3.375 GM in NS 50 ML IV SCH ×4 (03:45→20:59)
[2019-01-30] MEDS ORDERED: NS 500 ML IV ONE (09:16)
[2019-01-30 09:20] LABS: BASO# 0.01 X1000 (0.0-0.2); BASO% 0.3 % (0.0-0.8); EOS# 0.01 X1000 (0.0-0.7); EOS% 0.3 % (0.0-10.0); HEMATOCRIT 20.9 % (42.0-52.0); HEMOGLOBIN 6.4 g/dL (14.0-18.0); IMM GRAN# 0.05 X1000 (0.0-0.04); IMM GRAN% 1.3 % (0.0-0.5); LYMPH# 2.02 X1000 (1.2-3.4); LYMPH% 53.9 % (20.5-51.1); MCHC 30.6 g/dL (33-37); MCV 98.1 FL (81-99); MONO# 0.43 X1000 (0.11-0.59); MONO% 11.5 % (1.7-9.3); MPV 11.5 FL (7.4-10.4); NEUT# 1.23 X1000 (1.4-6.5); NEUT% 32.7 % (42.2-75.2); PLT 91 X1000 (130-400); RBC 2.13 XMIL (4.7-6.1); RDW 18.8 % (11.5-14.5); WBC 3.75 X1000 (4.8-10.8)
[2019-01-30 09:47] LABS: AGAP 9; BUN 28 mg/dL (8-22); CHLORIDE 112 mmol/L (98-107); COSMO 296; CREATININE 0.9 mg/dL (0.7-1.2); ESTIMATED GFR > 60; GLUCOSE 91 mg/dL (70-104); MAGNESIUM 1.8 mg/dL (1.5-2.7); POTASSIUM 3.4 mmol/L (3.5-5.1); SODIUM 146 mmol/L (136-145); TCO2 25 mmol/L (25-35)
[2019-01-30] MEDS: TYLENOL PO PRN ×2 (09:55→18:47)
[2019-01-30] MEDS: SANTYL OINT TOP SCH (09:57)
[2019-01-30] MEDS: CALMOSEPTINE OINTMENT TOP PRN (09:57)
[2019-01-30] MEDS: PATIENT'S OWN MED PO SCH ×2 (10:06→22:09)
--- NOTE | 2019-01-30 11:14 | PROGRESS NOTE ---
DATE: 01/30/2019 ADVANCE DIRECTIVE NOTE: Unfortunately, he is persistently encephalopathic. He has a baseline dementia. The last several days of taking care of him, he does not know where he is, persistently confused and I do not think he is able to make decisions for himself or has the capacity at this point to make decisions for himself, and he will most likely need a surrogate to assist with decisions. I am pretty sure his son has been signing his consents for transfusions and any procedures as well. cc: Kaushik Lyn MD [facility]
[2019-01-30] MEDS ORDERED: NS 500 ML ONE (12:47)
[2019-01-30] MEDS ORDERED: PROTONIX PO ONE (13:04)
[2019-01-30] MEDS: CORDARONE PO SCH (14:22)
--- NOTE | 2019-01-30 14:44 | INFECTIOUS DISEASE PROGRESS NO ---
DATE: 01/30/2019 PRESENT ILLNESS: The patient has methicillin-resistant Staphylococcus aureus and Acinetobacter left heel osteomyelitis. The patient also has an infiltrate in the left lung, which according to the procalcitonin value of 0.29 means that it is likely that the infiltrate is due to pneumonia. The patient also today told me that he is having diarrhea for the past 2 to 3 days. MEDICATIONS: This is the 10th day of treatment with antibiotics for the patient's heel osteomyelitis. Currently, the patient is getting vancomycin and Zosyn. PHYSICAL EXAMINATION: Vital Signs: Temperature is 97.6 degrees, pulse 56, respirations 18, blood pressure 96/54. General: This is an ill-appearing elderly male. He is awake today, and he is able to carry on a coherent conversation. Head, Eyes, Ears, Nose, and Throat: He can hear my spoken words and see near objects. He does not have any white patches in his mouth. Neck: He did not have any pain when I asked him to move his neck or his head. Lungs: Clear to auscultation. Cardiovascular: Heart rate is regular. Abdomen: Soft and nontender. Extremities: The patient's left knee is not swollen. I removed the dressing from the left heel, and it still shows an ulcerated area with some purulence in the wound. Neurologic: Patient is alert can move his extremities. There is no tremor. DIAGNOSTIC STUDIES: Procalcitonin level of 0.29. CBC with a white count of 3750, hemoglobin 6.4, and platelet count is 91,000. The patient's creatinine is 0.9 and GFR is greater than 60. ASSESSMENT AND PLAN: The patient has: 1. Heel osteomyelitis. 2. Left lung pneumonia. 3. He started having diarrhea which could be due to Clostridium difficile. My plan is to continue vancomycin and Zosyn and order stool for Clostridium difficile toxin and antigen. Also, I am going to request that the wound nurse see the patient as regarding his left heel. PATIENT'S COMORBIDITIES: 1. He is elderly. 2. He has lymphoma. 3. He has heart failure. 4. Depression. 5. Dementia. 6. Alcohol use. cc: Doroteo Wells MD
[2019-01-30] MEDS ORDERED: VANCOMYCIN 2,300 MG in NS 500 ML IV ONE (15:00)
--- NOTE | 2019-01-30 15:13 | PROGRESS NOTE ---
DATE: 01/30/2019 SUBJECTIVE: The patient is more awake but still very confused. OBJECTIVE: Blood pressure 110/50, heart rate of 54, respiratory 16, and temperature 97.Cardiovascular: Regular rate and rhythm. Pulmonary: Bilateral breath sounds clear to auscultation. GI: Soft, nontender, and nondistended. Bowel sounds are positive. By report, he has black tarry stools. LABORATORY DATA: White count 3, hemoglobin and hematocrit has dropped to 6.4 and 20 with platelets of 91,000. Chemistry: Sodium 146, potassium 3.4. Procalcitonin was elevated at 0.29. PROBLEM LIST: 1. Gastrointestinal bleed, which is a new issue. We have stopped his Eliquis which he has a DVT. We will have to be careful, but right now we are not really sure what else we can do. We need to consider doing an IVC filter because he is having a bleeding episode. May consult surgery towards that end. 2. DVT, left lower extremity. We will continue to monitor. 3. Left heel ulcer osteomyelitis with MRSA. He has been placed on vancomycin per Dr. Wells and Mony, and adjusted dose. We will be able to plan sending him to rehab with those. The vancomycin will be daily to twice a day and Zosyn will be twice a day. 4. Dementia is stable. 5. Non-Hodgkin's lymphoma. He is on Zydelig. 6. Symptomatic anemia. We will transfuse 1 unit and follow. Continue to monitor closely. DISPOSITION: We are looking at rehab options once numerous issues have been stabilized. cc: Kaushik Lyn MD [facility]
[2019-01-30 16:22] LABS: HEMATOCRIT 23.1 % (42.0-52.0)
[2019-01-30] MEDS ORDERED: LASIX IV SCH (18:30)
[2019-01-30] MEDS: SEROQUEL PO SCH (20:59)
[2019-01-30] MEDS ORDERED: PROTONIX PO SCH (21:00)
[2019-01-30] MEDS ORDERED: PROTONIX 80 MG in NS 80 ML IV SCH (22:30)
[2019-01-30 22:39] LABS: HEMATOCRIT 22.9 % (42.0-52.0); HEMOGLOBIN 7.1 g/dL (14.0-18.0)
--- NOTE | 2019-01-30 22:42 | GENERAL SURGERY CONSULTATION ---
DATE: 01/30/2019 HISTORY OF PRESENT ILLNESS: This is a chronically ill gentleman 88 years old. He has been in the hospital for quite some time. He has had some orthopedic issues, septic arthritis. He has been on antibiotics. He was found have a DVT and was started on anticoagulation for this, but unfortunately has developed his symptoms consistent with a GI bleed and I have been consulted for consideration of an inferior vena cava filter placement. He is very poor historian and can't really give much details. Most of the record is obtained per his medical record. PAST MEDICAL HISTORY: 1. Non-Hodgkin's lymphoma, low-grade. 2. Hypogonadism. 3. Hypertension. 4. Osteoarthritis. 5. History of squamous cell carcinoma of the skin. 6. Anxiety. 7. Depression. 8. Atrial fibrillation. 9. Alcohol. SURGICAL HISTORY: Left knee, right inguinal hernia, left intertrochanteric nailing, cholecystectomy, cardioversion. SOCIAL HISTORY: Has a supportive family. Lives with his . Does have a history of alcohol use. FAMILY HISTORY: Family history was reviewed, noncontributory. REVIEW OF SYSTEMS: Ten point negative. PHYSICAL EXAMINATION: Vital signs: No fevers. Pulse 56, blood pressure has been kind of stably low. Systolics of 90s consistently. Oxygen saturations high 90s on room air. General: He is a chronically ill elderly gentleman. HEENT: No scleral icterus. No cervical mass. Cardiovascular: Normal rate. Pulmonary: No increased work of breathing. Abdomen: Soft, nontender. Integument: Warm, dry. He has several pressure areas to his skin. Musculoskeletal exam: Including left posterior heel, peripheral vascular, bilateral lower extremity edema and otherwise well perfused. Psychiatric: Appropriate affect. Neurologic: Generalized slowing, weakness. LABORATORY DATA: White count 3, hematocrit is 23. Creatinine is 0.9. Venous ultrasound on 01/15, showed DVT in the left lower extremity, extensive. ASSESSMENT/PLAN: An 88-year-old gentleman with gastrointestinal bleed in the setting of deep vein thrombosis on anticoagulation. He is very elderly, multiple medical problems. We do need to hold his anticoagulation. I will talk to the family about inferior vena cava filter placement. I wonder of the overall utility of this as he does have multiple medical issues. He is on antibiotics for I believe an osteomyelitis. We will follow him along and maybe plan for inferior vena cava filter in the near future. cc: Antonina Rogers MD
[2019-01-31] MEDS: CARAFATE LIQUID PO SCH ×5 (01:48→21:34)
[2019-01-31] MEDS: PROTONIX 80 MG in NS 80 ML IV SCH ×3 (03:02→21:33)
[2019-01-31] MEDS: ZOSYN 3.375 GM in NS 50 ML IV SCH ×4 (03:02→21:34)
[2019-01-31 04:21] LABS: BASO# 0.02 X1000 (0.0-0.2); BASO% 0.5 % (0.0-0.8); EOS# 0.04 X1000 (0.0-0.7); EOS% 1.1 % (0.0-10.0); HEMATOCRIT 24.2 % (42.0-52.0); HEMOGLOBIN 7.6 g/dL (14.0-18.0); IMM GRAN# 0.05 X1000 (0.0-0.04); IMM GRAN% 1.3 % (0.0-0.5); LYMPH# 2.01 X1000 (1.2-3.4); LYMPH% 54.2 % (20.5-51.1); MCHC 31.4 g/dL (33-37); MCV 98.8 FL (81-99); MONO# 0.37 X1000 (0.11-0.59); MPV 11.8 FL (7.4-10.4); NEUT# 1.22 X1000 (1.4-6.5); NEUT% 32.9 % (42.2-75.2); PLT 88 X1000 (130-400); RBC 2.45 XMIL (4.7-6.1); RDW 19.6 % (11.5-14.5); WBC 3.71 X1000 (4.8-10.8)
[2019-01-31] MEDS ORDERED: FENTANYL ONE (10:13)
[2019-01-31] MEDS ORDERED: DIPRIVAN 1% ONE (10:13)
[2019-01-31 12:59] LABS: BASO# 0.01 X1000 (0.0-0.2); BASO% 0.3 % (0.0-0.8); EOS# 0.01 X1000 (0.0-0.7); EOS% 0.3 % (0.0-10.0); HEMATOCRIT 24.1 % (42.0-52.0); HEMOGLOBIN 7.7 g/dL (14.0-18.0); IMM GRAN# 0.05 X1000 (0.0-0.04); IMM GRAN% 1.6 % (0.0-0.5); LYMPH# 1.32 X1000 (1.2-3.4); MCH 30.8 PG (27-31); MCV 96.4 FL (81-99); MONO# 0.38 X1000 (0.11-0.59); MONO% 12.4 % (1.7-9.3); MPV 11.2 FL (7.4-10.4); NEUT% 42.4 % (42.2-75.2); PLT 79 X1000 (130-400); RDW 20.1 % (11.5-14.5); WBC 3.07 X1000 (4.8-10.8)
[2019-01-31 13:17] LABS: AGAP 10; BUN 28 mg/dL (8-22); CALCIUM 9.4 mg/dL (8.8-10.2); CHLORIDE 116 mmol/L (98-107); COSMO 301; CREATININE 0.8 mg/dL (0.7-1.2); ESTIMATED GFR > 60; GLUCOSE 91 mg/dL (70-104); SODIUM 149 mmol/L (136-145); TCO2 23 mmol/L (25-35)
[2019-01-31 13:19] LABS: BANDS 2 % (0-1); LYMPHS 43 % (21-51); MONO 3 % (1-9); SEGS 51 % (42-75)
[2019-01-31] MEDS: CORDARONE PO SCH (13:19)
[2019-01-31] MEDS: PATIENT'S OWN MED PO SCH ×2 (13:20→21:35)
[2019-01-31] MEDS: SANTYL OINT TOP SCH (13:23)
[2019-01-31] MEDS ORDERED: VANCOMYCIN IV SCH (15:00)
[2019-01-31 16:18] LABS: BASO# 0.01 X1000 (0.0-0.2); BASO% 0.3 % (0.0-0.8); EOS# 0.02 X1000 (0.0-0.7); EOS% 0.7 % (0.0-10.0); HEMATOCRIT 25.5 % (42.0-52.0); HEMOGLOBIN 7.9 g/dL (14.0-18.0); IMM GRAN# 0.04 X1000 (0.0-0.04); IMM GRAN% 1.4 % (0.0-0.5); LYMPH% 47.5 % (20.5-51.1); MCH 30.2 PG (27-31); MCV 97.3 FL (81-99); MONO# 0.34 X1000 (0.11-0.59); MONO% 11.5 % (1.7-9.3); NEUT# 1.14 X1000 (1.4-6.5); NEUT% 38.6 % (42.2-75.2); PLT 86 X1000 (130-400); RBC 2.62 XMIL (4.7-6.1); RDW 20.1 % (11.5-14.5); WBC 2.95 X1000 (4.8-10.8)
--- NOTE | 2019-01-31 16:27 | INFECTIOUS DISEASE PROGRESS NO ---
DATE: 01/31/2019 PRESENT ILLNESS: Patient has methicillin-resistant Staph aureus and Acinetobacter left heel osteomyelitis and also he may have pneumonia. The patient also had diarrhea and I was concerned that he may have Clostridium difficile. MEDICATIONS: This is the 11th day of treatment of the patient's heel osteomyelitis. Currently, the patient is getting Zosyn and vancomycin. PHYSICAL EXAMINATION: Vital Signs: Temperature is 98 degrees, pulse 80, respirations 14, blood pressure 120/70. General: This is an ill-appearing, elderly male. He is awake and talking today. Head, eyes, ears, nose, and throat: No drainage noted from the nose or ears. He does not have any white coating of his tongue. Neck: He does not have any neck pain with movement of his head or neck. Lungs: Clear to auscultation. Cardiovascular: Heart rate is regular. Abdomen: Soft and nontender. Extremities: The patient's left knee is not swollen and it does not cause him to have pain when it is moved. The patient's left heel dressing was removed by me. The ulcerated area is getting somewhat smaller and it is showing more beefy red tissue than purulence. Neurologic: The patient today is awake. He can move his extremities. There is no tremor. LAB AND X-RAY: There is no new laboratory tests today. The creatinine is 0.8. GFR is greater than 60. Procalcitonin is 0.29. CBC shows a white count of 3,070, hemoglobin 7.7, and platelet count 79,000. The patient's stool for Clostridium difficile toxin and antigen was negative. ASSESSMENT AND PLAN: The patient has heel osteomyelitis and possible left lung pneumonia. He does have diarrhea but the studies for Clostridium difficile antigen and toxin were negative. My plan now is to continue vancomycin and Zosyn. I am going to repeat the CBC tomorrow because the platelets are decreasing. If they continue to decrease, most likely it will be due to the Zosyn that I have recently added. COMORBIDITY: Elderly, lymphoma, heart failure, depression, dementia, and alcoholism. cc: MD GETACHEW Calvert
[2019-01-31 17:33] LABS: LYMPHS 54 % (21-51); MONO 8 % (1-9); SEGS 38 % (42-75)
[2019-01-31] MEDS ORDERED: VANCOMYCIN 1,700 MG in NS 250 ML IV SCH (18:00)
[2019-01-31] MEDS: BIDEX PO SCH ×2 (19:00→21:34)
--- NOTE | 2019-01-31 20:06 | GENERAL SURGERY PROGRESS NOTE ---
DATE: 01/31/2019 SUBJECTIVE: Alert but disoriented this morning. EXAM: Vital signs: No fevers overnight. Pulse has been in the 50s. He has been marginally hypotensive with systolics in the 80s to 90s, but overall been stable. Oxygen saturation is low 90s on room air. General: Very chronically ill 88-year-old gentleman with bilateral lower extremity edema. No cellulitis. LABORATORY DATA: White count 2, hematocrit 25. This is up from 22. Creatinine 0.5, potassium low at 3.0. ASSESSMENT AND PLAN: This is an 88-year-old gentleman. He has got multiple medical issues including osteomyelitis, left pneumonia. C diff was negative. He has got a deep vein thrombosis and he has had apparent gastrointestinal bleeding causing a downward trend in his hematocrit and I will consult for an inferior vena cava filter. I think giving his burden of overall illness, his risk benefit ratio for inferior vena cava filter placement argues against filter placement, especially with ongoing infection. We will follow along. If his condition was to change, we could reconsider this. It would be reasonable to consider a heparin drip for Lovenox if his bleeding stops. His EGD today did show a duodenal ulcer, which is most likely the source of his blood loss. cc: Antonina Rogers MD
[2019-01-31] MEDS: SEROQUEL PO SCH (21:33)
[2019-01-31] MEDS: PROTONIX PO SCH (21:34)
[2019-01-31] MEDS: POTASSIUM CHLORIDE 20 MEQ/SWI 20 MEQ/100 ML IVPB IV SCH (21:44)
--- NOTE | 2019-01-31 21:59 | PROGRESS NOTE ---
DATE: 01/31/2019 INTERVAL HISTORY: Patient underwent EGD for acute blood loss anemia and positive fecal occult blood test. EGD suggests patient had about a 3 to 6 cm bleeding duodenal ulcer and esophagitis. The ulcer was cauterized. He has so far received 3 units of packed red blood cells. SUBJECTIVE: I am seeing him post EGD. He is denying any complaints. Denies any chest pain, shortness of breath, abdominal pain. No nausea or vomiting. Patient does not appear in any acute distress. OBJECTIVE: Current Vitals: Temperature of 93.1, pulse of 61, respiratory rate 18, blood pressure 103/48, saturating 94% on room air. General: On physical exam, he does not appear in any acute distress. To my touch, he does not appear hypothermic. Oral Cavity: Moist. Lungs: Air entry bilaterally equal. No wheeze or rhonchi. He does have mild crackles bilaterally. Heart: S1, S2 normal. No murmur, rub, or gallop. Abdomen: Soft, nontender. Extremities: No lower extremity edema. He has bilateral upper extremity resting tremor. He has had multiple sacral decubitus ulcers about stage 2. On the right heel, he had about a 2 x 2 cm ulcer with a clean base. LABS: Suggestive of pancytopenia with WBC 2.9, hemoglobin 7.9, platelet of 86,000. His coagulation has not been performed. He does have hypernatremia, hypokalemia, and hyperchloremia. Continues to have elevated BUN. MICROBIOLOGY: No new data. ASSESSMENT AND PLAN: 1. Acute upper gastrointestinal bleed from duodenal ulcer, leading to acute blood loss anemia, status post esophagogastroduodenoscopy and cauterization of duodenal ulcer on 01/31/2019, and status post 3 units of packed red blood cells. Continue to monitor CBC and transfuse as needed. He has been started on intravenous Protonix drip. However, considering shortage of intravenous Protonix, after the drip, I am going to start him on p.o. Protonix and I will continue him on sucralfate. I will continue to hold the anticoagulation. 2. Left heel suspected osteomyelitis with Methicillin resistant Staphylococcus aureus and Acinetobacter. Continue intravenous vancomycin and Zosyn as per infectious disease recommendation. 3. Pancytopenia. This could be in the setting of use of intravenous antibiotics. He was previously on intravenous daptomycin and intravenous aztreonam, which were changed to intravenous vancomycin and Zosyn. I will continue to monitor his CBC. 4. Left lower extremity extensive deep venous thrombosis. I am going to hold his anticoagulation considering his recurrent gastrointestinal bleed episode, and I will consult Surgery tomorrow to evaluate for need for inferior vena cava filter. 5. Others. Continue home amiodarone for atrial fibrillation, requiring cardioversion in 2010; quetiapine at nighttime for dementia with behavioral disturbance; intravenous potassium for hypokalemia. His type 2 myocardial infarction because of demand supply mismatch on presentation is currently being managed conservatively. I will continue his home Zydelig for low-grade non-Hodgkin's lymphoma. 6. Disposition. Patient's condition remains guarded. I will continue to monitor patient inside the hospital. We are awaiting swinging bed availability at an outside hospital, and will consider discharge as it becomes available. Plan of care discussed with the patient. I will keep patient's family informed. cc: Cj Brennan MD
[2019-01-31] MEDS ORDERED: PROTONIX IV SCH (22:18)
[2019-01-31 22:32] LABS: BASO# 0.03 X1000 (0.0-0.2); BASO% 0.9 % (0.0-0.8); EOS# 0.01 X1000 (0.0-0.7); EOS% 0.3 % (0.0-10.0); HEMATOCRIT 27.1 % (42.0-52.0); HEMOGLOBIN 8.3 g/dL (14.0-18.0); IMM GRAN# 0.14 X1000 (0.0-0.04); IMM GRAN% 4.1 % (0.0-0.5); LYMPH# 1.52 X1000 (1.2-3.4); LYMPH% 44.6 % (20.5-51.1); MCH 31.6 PG (27-31); MCHC 30.6 g/dL (33-37); MONO# 0.43 X1000 (0.11-0.59); MONO% 12.6 % (1.7-9.3); MPV 11.2 FL (7.4-10.4); NEUT# 1.28 X1000 (1.4-6.5); NEUT% 37.5 % (42.2-75.2); PLT 71 X1000 (130-400); RBC 2.63 XMIL (4.7-6.1); RDW 21.6 % (11.5-14.5); WBC 3.41 X1000 (4.8-10.8)
[2019-02-01] MEDS: POTASSIUM CHLORIDE 20 MEQ/SWI 20 MEQ/100 ML IVPB IV SCH (01:00)
[2019-02-01] MEDS: CARAFATE LIQUID PO SCH ×4 (03:01→23:38)
[2019-02-01] MEDS: ZOSYN 3.375 GM in NS 50 ML IV SCH ×4 (03:01→21:30)
[2019-02-01] MEDS: PROTONIX 80 MG in NS 80 ML IV SCH (03:10)
[2019-02-01 04:58] LABS: BASO# 0.01 X1000 (0.0-0.2); BASO% 0.3 % (0.0-0.8); EOS# 0.01 X1000 (0.0-0.7); EOS% 0.3 % (0.0-10.0); HEMATOCRIT 24.6 % (42.0-52.0); HEMOGLOBIN 7.6 g/dL (14.0-18.0); IMM GRAN# 0.34 X1000 (0.0-0.04); IMM GRAN% 8.9 % (0.0-0.5); LYMPH# 1.84 X1000 (1.2-3.4); LYMPH% 48.4 % (20.5-51.1); MCH 29.9 PG (27-31); MCHC 30.9 g/dL (33-37); MCV 96.9 FL (81-99); MONO# 0.37 X1000 (0.11-0.59); MONO% 9.7 % (1.7-9.3); MPV 11.3 FL (7.4-10.4); NEUT# 1.23 X1000 (1.4-6.5); NEUT% 32.4 % (42.2-75.2); PLT 77 X1000 (130-400); RBC 2.54 XMIL (4.7-6.1); RDW 20.4 % (11.5-14.5)
[2019-02-01 05:03] LABS: AGAP 10; BUN 26 mg/dL (8-22); CALCIUM 9.7 mg/dL (8.8-10.2); CHLORIDE 116 mmol/L (98-107); COSMO 301; CREATININE 0.8 mg/dL (0.7-1.2); ESTIMATED GFR > 60; GLUCOSE 101 mg/dL (70-104); POTASSIUM 3.2 mmol/L (3.5-5.1); SODIUM 149 mmol/L (136-145); TCO2 23 mmol/L (25-35)
[2019-02-01] MEDS: CORDARONE PO SCH (08:14)
[2019-02-01] MEDS: BIDEX PO SCH ×2 (08:14→23:38)
[2019-02-01] MEDS: SANTYL OINT TOP SCH (08:14)
[2019-02-01] MEDS: PROTONIX PO SCH (08:14)
[2019-02-01] MEDS: PATIENT'S OWN MED PO SCH ×2 (08:14→23:38)
[2019-02-01] MEDS: VANCOMYCIN 1,700 MG in NS 250 ML IV SCH (09:41)
--- NOTE | 2019-02-01 09:56 | Diag Imaging Result Doc PS360 ---
EXAM: CHEST-PORTABLE HISTORY: pneumonia TECHNIQUE: Chest single view COMPARISON: 01/29/2019 FINDINGS: There are dense bilateral infiltrates. These are more pronounced than on the prior study. No cardiomegaly. Trace pleural fluid. IMPRESSION: Worsening infiltrates. Electronically signed by Aubrey Neal 02/01/2019 9:54 AM
[2019-02-01 10:46] LABS: BASO# 0.01 X1000 (0.0-0.2); BASO% 0.3 % (0.0-0.8); EOS# 0.02 X1000 (0.0-0.7); EOS% 0.7 % (0.0-10.0); HEMATOCRIT 24.6 % (42.0-52.0); HEMOGLOBIN 7.6 g/dL (14.0-18.0); IMM GRAN# 0.11 X1000 (0.0-0.04); IMM GRAN% 3.7 % (0.0-0.5); LYMPH# 1.22 X1000 (1.2-3.4); LYMPH% 40.8 % (20.5-51.1); MCH 30.2 PG (27-31); MCHC 30.9 g/dL (33-37); MCV 97.6 FL (81-99); MONO# 0.33 X1000 (0.11-0.59); NEUT% 43.5 % (42.2-75.2); PLT 58 X1000 (130-400); RBC 2.52 XMIL (4.7-6.1); RDW 20.6 % (11.5-14.5); WBC 2.99 X1000 (4.8-10.8)
[2019-02-01 11:33] LABS: LYMPHS 44 % (21-51); MONO 14 % (1-9); SEGS 42 % (42-75)
[2019-02-01] MEDS: ZITHROMAX 500 MG/NS 500 MG/250 ML IVPB IV SCH (13:24)
--- NOTE | 2019-02-01 14:05 | PROVIDER PROGRESS NOTE ---
Progress Note SUBJECTIVE: No acute overnight events. Afebrile. Limited ROS. He denies abdominal pain. No vomiting reports. He has 1 documented black tarry stool. OBJECTIVE: Last Vital Signs Temp 93.5 F L 02/01/19 07:49 Pulse 62 02/01/19 10:53 Resp 20 02/01/19 10:53 BP 90/60 02/01/19 10:54 Pulse Ox 97 02/01/19 10:53 Height 6 ft 2 in Weight 187 lb 9.6 oz GEN: elderly, NAD, confused HEENT: anicteric, gurgling, dryMM with mouth breathing NECK: supple, no LAD CV: RRR, no murmurs PULM: CTAB anteriorly ABD: soft NT/ND, NABS EXT: pressure ulcer left heel with dressing, no cce NEURO: moving all extremities LABS 02/01/19 02/01/19 04:21 04:21 WBC 3.80 L Hgb 7.6 L Plt Count 77 L Sodium 149 H Potassium 3.2 L Chloride 116 H Carbon Dioxide 23 L Anion Gap 10 BUN 26 H Creatinine 0.8 EGD 01/31/2019 Bleeding 3-7 mm duodenal bulb ulcer with oozing s/p cautery A/P: Mr. Don Person is a 88 year old man with dementia, non-Hodgkin's lymphoma, osteomyelitis on left heal, DVT who presented to the GI service with UGIB s/p EGD with cautery of duodenal bulb ulcer on 01/31. His hgb is slightly down from yesterday. VSS. # UGIB: 2/2 duodenal ulcer s/p cautery; continue clears # Hypernatremia: suspect volume depletion; consider IVFs # Duodenal ulcer: continue PPI BID, on carafate QID # Anemia: from above; trend H/H daily, transfuse to maintain hgb >=8, avoiding blood thinners # Thrombocytopenia: trending plts daily, transfuse as needed to maintain plts >50K in setting of overt bleeding # Osteomyelitis: with Methicillin resistant Staphylococcus aureus and Acinetobacter; on antibiotics per ID # Non-Hodgkin's lymphoma: oncology following # LLE DVT: holding lovenox; consider IVC filter if aligned with patient's GOC
--- NOTE | 2019-02-01 14:48 | INFECTIOUS DISEASE PROGRESS NO ---
DATE: 02/01/2019 PRESENT ILLNESS: Mr. Person is being treated for a methicillin-resistant Staph aureus and Acinetobacter osteomyelitis to the left heel, as well as a pneumonia and pancytopenia. MEDICATIONS: Today is day 12 of treatment for his osteomyelitis. He is currently receiving vancomycin IV per pharmacy dosing and Zosyn 3.375 g IV every 6 hours. PHYSICAL EXAMINATION: Vital Signs: Temperature is 93.5 degrees, pulse rate 52, respiratory rate 21, blood pressure 117/52, O2 saturation is 88% on 2 L nasal cannula. General: This is a chronically ill-appearing, elderly gentleman. He is lying in the bed, currently in mild respiratory distress. HEENT: Atraumatic, normocephalic. Oral mucous membranes are pink and moist. Conjunctivae are pale. Respiratory: Lung sounds have coarse rhonchi and wheezes in the upper lobes, diminished in the bases. Cardiovascular: Heart rate is regular. Abdomen: Soft and tender on palpation. Bowel sounds are hypoactive. Extremities: The left heel has an ulceration with approximately a quarter-sized ulceration noted which is dry with beefy red tissue to the base as well some varying white and pink tissue. Neurologic: He is awake and alert. Able to move all extremities with generalized weakness. No tremor is noted. LABORATORY AND X-RAY: Today his white count is 3.8, hemoglobin 7.6, platelet count 77,000. absolute neutrophil count is 1.23. Creatinine is 0.8. Estimated GFR is greater than 60. His left foot previously grew a methicillin-resistant Staph aureus and Acinetobacter baumannii. No imaging reports today. ASSESSMENT AND PLAN: Mr. Person is being treated for a left heel osteomyelitis as well as a pneumonia. His lung sounds are somewhat worse this morning, with a low oxygen saturation on nasal cannula. He has not had a chest x-ray in a few days, so I will go ahead and order a portable chest x-ray at this time. For now, we will continue the vancomycin and Zosyn as ordered. His platelet count is a little higher than yesterday. There is a noted pancytopenia, which we will continue to monitor. These plans have been discussed with and recommended by Dr. Wells. COMORBIDITIES: He is elderly with dementia, lymphoma, congestive heart failure, anxiety and depression, and recent diagnosis of esophagitis and erosive gastritis. Dictated by MARTÍN Ascencio for Doroteo Wells MD cc: MD GETACHEW Calvert
[2019-02-01] MEDS ORDERED: LASIX IV ONE (15:02)
--- NOTE | 2019-02-01 15:13 | INFECTIOUS DISEASE PROGRESS NO ---
DATE: 02/01/2019 ADDENDUM: The patient's chest x-ray has come back with worsening infiltrates. At this point, we will add IV azithromycin 500 mg daily and we will leave it in IV form due to his erosive gastritis. This plan has been recommended by Dr. Wells. Dictated by MARTÍN Ascencio for Doroteo Wells MD cc: Doroteo Wells MD
[2019-02-01 16:21] LABS: ALLEN TEST YES; BE -3.8 mmoll (-3.0-3.0); BLOOD TYPE ARTERIAL; HCO3-(ACT) 21.8 mmoll (20.0-26.0); METHB 0.7 % (0.0-1.5); O2(CT) 9.4 mL/dL (15.0-23.0); PCO2(98.6) 50 mmHg (35-45); SAMPLE BLOOD; SAO2 85.8 % (95.0-100.0); pH(98.6) 7.27 (7.35-7.45)
[2019-02-01 16:22] LABS: MODALITY CANNULA
[2019-02-01 16:29] LABS: O2HB 83.1 % (95.0-99.0); PO2(98.6) 49 mmHg (60-100)
[2019-02-01 17:05] LABS: BASO# 0.01 X1000 (0.0-0.2); BASO% 0.3 % (0.0-0.8); EOS# 0.01 X1000 (0.0-0.7); EOS% 0.3 % (0.0-10.0); HEMATOCRIT 25.5 % (42.0-52.0); HEMOGLOBIN 7.7 g/dL (14.0-18.0); IMM GRAN# 0.19 X1000 (0.0-0.04); IMM GRAN% 5.6 % (0.0-0.5); LYMPH# 1.45 X1000 (1.2-3.4); MCH 29.7 PG (27-31); MCHC 30.2 g/dL (33-37); MCV 98.5 FL (81-99); MONO# 0.41 X1000 (0.11-0.59); MONO% 12.2 % (1.7-9.3); MPV 11.1 FL (7.4-10.4); NEUT% 38.6 % (42.2-75.2); PLT 58 X1000 (130-400); RBC 2.59 XMIL (4.7-6.1); RDW 21.1 % (11.5-14.5); WBC 3.37 X1000 (4.8-10.8)
[2019-02-01 17:14] LABS: URINE SOURCE CATH
[2019-02-01 17:15] LABS: UR EPITHELIAL CELLS <10 /HPF (<10); URINE BACTERIA NEGATIVE /HPF; URINE RBC <10 /HPF (<10); URINE WBC <10 /HPF (<10)
[2019-02-01] MEDS ORDERED: LEVOPHED 8 MG in D5 1/2 NS 250 ML IV SCH (17:15)
[2019-02-01 17:16] LABS: BILIRUBIN URINE NEGATIVE (NEGATIVE); BLOOD URINE NEGATIVE (NEGATIVE); COLOR YELLOW; GLUCOSE URINE NEGATIVE (NEGATIVE); KETONE URINE NEGATIVE (NEGATIVE); LEUKOCYTES URINE NEGATIVE (NEGATIVE); NITRITE URINE NEGATIVE (NEGATIVE); PH URINE 5.5; PROTEIN URINE 30 mg/dL (NEGATIVE); SP GRAVITY URINE 1.019; TURBIDITY URINE CLEAR (CLEAR); UROBILINOGEN URINE NORMAL (NORMAL)
[2019-02-01] MEDS ORDERED: HALDOL IV ONE (17:30)
[2019-02-01] MEDS ORDERED: D5 1/2 NS 1,000 ML IV SCH (17:30)
[2019-02-01 18:47] LABS: ANISOCYTOSIS 2+; HYPOCHROM 1+; LYMPHS 46 % (21-51); MONO 2 % (1-9); NRBC 1 % (0-0); SEGS 52 % (42-75)
--- NOTE | 2019-02-01 19:30 | PROGRESS NOTE ---
DATE: 02/01/2019 GOALS OF CARE DISCUSSION NOTE: I tried to reach out to patient's son, who was listed in the chart. However, he did not sisal picker. I was provided number of the patient's [id number]. I called her and left a voice message. Later on I received a call from patient's son. I discussed with the patient's son about Mr. Person's critical condition including hypoxia, hypercarbia, need for BiPAP. I also discussed with him about his hypotension and need for intravenous pressor medication. I told him that these are aggressive measures to sustain his life and I asked him about his wishes on behalf of Mr. Person. The patient's son clearly stated that he is okay to use a BiPAP mask, and he in fact wants us to use intravenous pressor medications to help increase his blood pressure. However, he clearly states that if his heart stops, then he would not want any heroic measures in terms of chest compressions and shock. He does not want us to intubate or hook him up with the ventilator. His code status is listed to be Do Not Resuscitate level 1, but the patient's son clearly states that he is okay with the BiPAP mask and IV pressors. Considering his wishes, I am going to transfer patient to ICU for IV pressors. Also, my plan is to readdress code status on subsequent visits to clearly define goals of care. Plan of care was extensively discussed with his son. All of his questions were answered. I discussed this plan with the nursing team as well. cc: Cj Brennan MD
--- NOTE | 2019-02-01 19:49 | PROGRESS NOTE ---
DATE: 02/01/2019 SUBJECTIVE: I was informed that the patient was struggling to breathe. I immediately evaluated the patient at bedside. He is a little less responsive than usual. He also appears to be using accessory muscles of respiration, appears tachypneic. He does not follow commands, keeps his eyes open and appears confused and fidgety. OBJECTIVE: Current vital signs: Temperature of 93.5 degrees, pulse of 40, blood pressure of 83/38. He is saturating 84% on 3 L nasal cannula. General: Appears in moderate distress because of shortness of breath. HEENT: Oral cavity is dry. Respiratory: He has diffuse rhonchorous breathing affecting bilateral lung mar, especially on the left and right infrascapular region. No wheeze. Bilateral crackles. Cardiovascular: S1, S2 normal. Bradycardic. No murmur, rub, or gallop. Abdomen: Soft, nontender. Extremities: No lower extremity edema. Genitourinary: He does have urine retention for which he has got a get urine catheter. Neurologic: Bilateral upper extremity resting tremor. Skin: He has had multiple sacral decubitus ulcers of about stage II, and he had a right heel about 2 x 2 cm ulcer with clean base. LABORATORY DATA: CBC today suggestive of hemoglobin of 7.7. Chemistry suggestive of hypernatremia, hyperchloremia, hypokalemia. ABG suggestive of hypoxia, hypercarbia and acidosis. IMAGING: Chest x-ray performed today morning suggestive of worsening bilateral infiltrate. ASSESSMENT AND PLAN: 1. Septic shock due to bilateral worsening pneumonia leading to acute hypoxic hypercarbic respiratory failure. Start patient on BiPAP. I will give him intravenous fluid bolus and intravenous norepinephrine to maintain MAP more than 65 mmHg. Follow up with repeat ABG at nighttime and transfer patient to ICU. Continue intravenous vancomycin, Zosyn and azithromycin as for Infectious Disease recommendation. 2. Left heel suspected osteomyelitis with methicillin-resistant Staphylococcus aureus and Acinetobacter. Continue intravenous vancomycin and Zosyn for ID for a total of 6 weeks. 3. Upper gastrointestinal bleed from bleeding duodenal ulcer leading to acute blood loss anemia status post esophagogastroduodenoscopy and cauterization of duodenal ulcer on January 31 and 3 units of packed red blood cells. Continue monitor CBC and transfuse to maintain hemoglobin more than 7. Continue Protonix. I will continue him on p.o. Protonix b.i.d., sucralfate and would also start him on intravenous H2 blockers if he is not able to take by mouth. 4. Pancytopenia could be in the setting of intravenous antibiotic use. He was previously on intravenous daptomycin, intravenous aztreonam, which had been changed to intravenous vancomycin and Zosyn. I will continue to monitor CBC. 5. Left lower extremity deep venous thrombosis. Continue to hold anticoagulation considering his recent gastrointestinal bleed. Considering his poor general status, he may not be a candidate for inferior vena cava filter though surgery is on board. Resume anticoagulation if possible in future. 6. Others: Continue amiodarone for atrial fibrillation requiring cardioversion in 2010; his hypokalemia is being repleted; continue Zydelig for non-Hodgkin's lymphoma; intravenous fluids for hypernatremia, hyperchloremia. 7. Disposition: The patient's condition is critical. I will transfer patient to ICU. TIME SPENT: More than 30 minutes of critical care time was spent in taking care of this patient. cc: Cj Brennan MD
[2019-02-01 20:28] LABS: ALLEN TEST YES; BE -2.7 mmoll (-3.0-3.0); BLOOD TYPE ARTERIAL; HCO3-(ACT) 22.8 mmoll (20.0-26.0); O2(CT) 10.6 mL/dL (15.0-23.0); O2HB 96.6 % (95.0-99.0); PCO2(98.6) 48 mmHg (35-45); PO2(98.6) 166 mmHg (60-100); SAMPLE BLOOD; SAO2 99.6 % (95.0-100.0); THB 7.5 g/dL (11.5-17.4)
[2019-02-01 20:29] LABS: MODALITY BI PAP
[2019-02-01] MEDS: DOPAMINE 800 MG/D5W 800 MG/500 ML IV.SOLN IV SCH (21:31)
[2019-02-01] MEDS ORDERED: SODIUM CHLORIDE 0.9% INJ SCH (22:30)
[2019-02-01 23:07] LABS: BASO# 0.02 X1000 (0.0-0.2); BASO% 0.4 % (0.0-0.8); EOS# 0.01 X1000 (0.0-0.7); EOS% 0.2 % (0.0-10.0); HEMATOCRIT 30.4 % (42.0-52.0); HEMOGLOBIN 9.1 g/dL (14.0-18.0); IMM GRAN# 0.18 X1000 (0.0-0.04); IMM GRAN% 3.8 % (0.0-0.5); LYMPH# 2.55 X1000 (1.2-3.4); LYMPH% 53.9 % (20.5-51.1); MCH 31.1 PG (27-31); MCHC 29.9 g/dL (33-37); MCV 103.8 FL (81-99); MONO# 0.35 X1000 (0.11-0.59); MONO% 7.4 % (1.7-9.3); MPV 11.6 FL (7.4-10.4); NEUT# 1.62 X1000 (1.4-6.5); NEUT% 34.3 % (42.2-75.2); PLT 77 X1000 (130-400); RBC 2.93 XMIL (4.7-6.1); RDW 21.9 % (11.5-14.5); WBC 4.73 X1000 (4.8-10.8)
[2019-02-01] MEDS: PROTONIX IV SCH (23:27)
[2019-02-02] MEDS: CARAFATE LIQUID PO SCH ×4 (02:23→21:13)
[2019-02-02] MEDS: ZOSYN 3.375 GM in NS 50 ML IV SCH ×4 (04:00→21:29)
[2019-02-02 04:36] LABS: ALLEN TEST YES; BE -3.2 mmoll (-3.0-3.0); BLOOD TYPE ARTERIAL; HCO3-(ACT) 22.5 mmoll (20.0-26.0); METHB 0.6 % (0.0-1.5); O2(CT) 11.4 mL/dL (15.0-23.0); O2HB 96.8 % (95.0-99.0); PCO2(98.6) 40 mmHg (35-45); PO2(98.6) 121 mmHg (60-100); SAMPLE BLOOD; SAO2 99.1 % (95.0-100.0); THB 8.2 g/dL (11.5-17.4); pH(98.6) 7.35 (7.35-7.45)
[2019-02-02 04:38] LABS: MODALITY BI PAP
[2019-02-02] MEDS: DOPAMINE 800 MG/D5W 800 MG/500 ML IV.SOLN IV SCH ×2 (06:05→17:17)
[2019-02-02 06:24] LABS: EOS# 0.01 X1000 (0.0-0.7); EOS% 0.2 % (0.0-10.0); HEMATOCRIT 26.3 % (42.0-52.0); HEMOGLOBIN 8.3 g/dL (14.0-18.0); IMM GRAN# 0.08 X1000 (0.0-0.04); IMM GRAN% 1.7 % (0.0-0.5); LYMPH# 2.21 X1000 (1.2-3.4); LYMPH% 47.8 % (20.5-51.1); MCH 30.6 PG (27-31); MCHC 31.6 g/dL (33-37); MONO# 0.38 X1000 (0.11-0.59); MONO% 8.2 % (1.7-9.3); MPV 10.9 FL (7.4-10.4); NEUT# 1.94 X1000 (1.4-6.5); NEUT% 42.1 % (42.2-75.2); PLT 82 X1000 (130-400); RBC 2.71 XMIL (4.7-6.1); RDW 20.8 % (11.5-14.5); WBC 4.62 X1000 (4.8-10.8)
[2019-02-02 06:46] LABS: AGAP 12; BUN 27 mg/dL (8-22); CALCIUM 8.7 mg/dL (8.8-10.2); CHLORIDE 113 mmol/L (98-107); COSMO 298; CREATININE 1.1 mg/dL (0.7-1.2); ESTIMATED GFR > 60; GLUCOSE 141 mg/dL (70-104); POTASSIUM 3.2 mmol/L (3.5-5.1); SODIUM 146 mmol/L (136-145); TCO2 21 mmol/L (25-35)
--- NOTE | 2019-02-02 07:21 | Diag Imaging Result Doc PS360 ---
EXAM: CHEST-PORTABLE 02/02/2019 HISTORY: dyspnea TECHNIQUE: AP portable at 0531 COMMENT: There is diffuse alveolar opacity with some sparing of the right apex. This was also present on 02/01/2019 but is slightly worse particularly in the left upper lobe. IMPRESSION: Worsened pulmonary edema and/or pneumonia. Electronically signed by Jose L Sherman 02/02/2019 7:18 AM
[2019-02-02] MEDS: VANCOMYCIN 1,700 MG in NS 250 ML IV SCH (07:55)
[2019-02-02] MEDS: SANTYL OINT TOP SCH (08:04)
[2019-02-02] MEDS: PATIENT'S OWN MED PO SCH ×2 (08:05→21:14)
[2019-02-02] MEDS: BIDEX PO SCH ×2 (08:06→21:13)
[2019-02-02] MEDS ORDERED: ZYPREXA IM PRN (08:37)
[2019-02-02] MEDS ORDERED: D5W 1,000 ML IV SCH (08:45)
--- NOTE | 2019-02-02 09:38 | PROGRESS NOTE ---
DATE: 02/02/2019 INTERVAL HISTORY: Patient was transferred to ICU. Overnight, he did develop a significant bradycardia with heart rate in the 30s. EKG had a junctional bradycardia, so Cardiology was consulted and his norepinephrine was changed to intravenous dopamine, following which his heart rate was in the 50s. In the morning time, I also discontinued his amiodarone. His ABG had suggested improvement in respiratory acidosis. Chest x-ray performed today in the morning is suggestive of bilateral alveolar opacity. SUBJECTIVE: Patient is alert, not answering any questions. He appears confused. He was very fidgety and required bilateral restraints. He had tolerated haloperidol well without any reaction. VITALS: Temperature 97.2 degrees, pulse of 51, respiratory 21 blood pressure 140/58 saturating MAP more than 65 on dopamine. Input and output: He had a urine catheter placed and had 350 mL of output. OBJECTIVE: General: On physical examination, he does not appear in any acute distress. HEENT: Significantly dry oral cavity. He is on Ventimask. Lungs: Air entry bilaterally equal with diffuse inspiratory crackles bilaterally and rhonchi. No wheezes, except occasional. Cardiovascular examination: S1, S2 normal. Bradycardic. No murmur, rub, or gallop. He does have external jugular vein distention. Abdomen: Soft, nontender. Extremities: He has bilateral lower extremity edema, more pronounced on the left lower extremity in the ankle region. He has urine catheter. He has bilateral upper and lower extremity restraints. Neurologic: He is alert, not oriented. Pupils are bilaterally equal, reacting to light. He is trying to come out of bed. LAB EXAMINATION: Labs suggest he does have leukopenia, which is improving. Normocytic anemia, which is stable. Persistent thrombocytopenia. His respiratory acidosis is resolving. His PO2 is 121 on 50% BiPAP. He does have hypernatremia, hyperchloremia, hypokalemia which is being repleted. Appears to have normal kidney function. MICROBIOLOGY: No new data. IMAGING: Chest x-ray suggests worsening of bilateral infiltrates. EKG has junctional bradycardia. ASSESSMENT AND PLAN: 1. Septic shock due to bilateral worsening pneumonia with other differential being transfusion- associated lung injury, though less likely considering timeline leading to acute hypoxic hypercarbic respiratory failure. Continue to cycle BiPAP and Ventimask as tolerated. I will await proBNP and accordingly start him on hypotonic fluids to address his electrolyte abnormalities. Continue dopamine to maintain MAP more than 65 mmHg. Continue intravenous vancomycin, Zosyn, and azithromycin. 2. Junctional bradycardia and hypotension. He did have junctional bradycardia previously as well. His current septic shock episode might be making him more bradycardic. I will stop amiodarone. Follow up with proBNP and echocardiogram to evaluate left ventricular and right ventricular functions. 3. Upper gastrointestinal bleed from bleeding duodenal ulcer leading to acute blood loss anemia status post esophagogastroduodenoscopy and cauterization of ulcer on January 31 and 3 units of packed red blood cell transfusion. Continue to monitor complete blood count. Continue Protonix intravenous twice daily, sucralfate. 4. Left heel osteomyelitis with methicillin-resistant Staphylococcus aureus and Acinetobacter. Continue intravenous vancomycin and Zosyn for infectious disease as per Infectious Disease recommendation. 5. Pancytopenia, currently in acceptable range. He does have significant thrombocytopenia. However, he is not showing overt bleeding, though he did have duodenal bleeding ulcer. I will consider transfusing platelets if his platelet count drops to less than 20,000. 6. Left lower extremity deep vein thrombosis. Continue to hold anticoagulation considering active gastrointestinal bleed. Considering his poor nutritional status and ongoing infections, he is not the ideal candidate for inferior vena cava filter placement as per Surgery recommendation. 7. Others: Atrial fibrillation requiring cardioversion to 11. I am holding his amiodarone; continue Zydelig for non-Hodgkin's lymphoma. 8. Disposition: I will continue to monitor patient in intensive care unit. TIME SPENT: More than 30 minutes of critical care time was spent taking care of this patient. cc: Cj Brennan MD
[2019-02-02] MEDS: PROTONIX IV SCH ×2 (10:58→23:17)
[2019-02-02] MEDS: DUONEB (A & A) INH SCH ×4 (11:19→21:49)
[2019-02-02] MEDS: ZITHROMAX 500 MG/NS 500 MG/250 ML IVPB IV SCH (12:35)
--- NOTE | 2019-02-02 14:59 | ECHO REPORT ---
ORDER DATE: 02/02/2019 INTERPRETING PHYSICIAN: Javier Crisostomo MD. ECHOCARDIOGRAPHIC MEASUREMENTS: 1. Interventricular septum 1.0. 2. Left ventricular posterior wall 1.0. 3. Diastolic diameter 5.5. 4. Left atrium 4.4. 5. Aorta is 4.9 cm. FINDINGS: 1. There is left atrial enlargement. 2. Ascending aorta is dilated. 3. Pulmonic valve was normal. 4. Aortic valve leaflets are trileaflet. 5. Normal left ventricular cavity size. Estimated ejection fraction of 65%. There is asymmetric septal hypertrophy. 6. Mitral valve was normal. There is moderate mitral annular calcification. 7. Tricuspid valve was normal. There is mild tricuspid regurgitation. Peak velocity across the tricuspid valve was 2.9 m/sec. Pulmonary artery systolic pressure of 43 mmHg. 8. There is left atrial enlargement. 9. Peak velocity across the aortic valve less than 2 m/sec. There is no aortic stenosis or regurgitation. 10. There is no pericardial effusion. cc: MD Cj Wilson MD
[2019-02-02 17:14] LABS: CALCIUM 8.3 mg/dL (8.8-10.2); CREATININE 1.4 mg/dL (0.7-1.2); POTASSIUM 3.7 mmol/L (3.5-5.1)
--- NOTE | 2019-02-02 18:21 | GASTROENTEROLOGY PROGRESS NOTE ---
DATE: 02/02/2019 SUBJECTIVE: Patient currently resting in bed. He is nonverbal. His family was at the bedside. As per the family and the nursing staff, the patient has declined. He has pulmonary edema. He has oliguria. He continues to be anemic. He is on nonrebreather. OBJECTIVE: Temperature of 97.5 degrees, pulse rate 104, respiratory 32, blood pressure 102/55, saturating 94% on nonrebreather. He is on nonrebreather at 15 L/min. General appearance: Lying in bed, nonverbal on a face mask.HEENT: Positive pallor. No icterus. Face mask in place. Neck is supple. Abdomen is soft, nondistended. No guarding. Extremities: No cyanosis or clubbing. Neurologic: He is nonverbal at the moment. LABORATORY DATA: Hemoglobin and hematocrit are 8.3 and 26.3, white count of 4.6, platelet count of 82,000. ABG showing pH of 7.35, pCO2 of 40, pO2 of 121, FIO2 of 50%. Sodium 140, potassium 3.2, chloride 113, bicarbonate 21, anion gap 12, BUN of 27, creatinine 1.1, glucose of 141, calcium is 8.7. Urinalysis: Positive protein and stool. Occult blood was positive. C. difficile toxin is negative. C. difficile antigen is negative. DIAGNOSTIC DATA: Chest x-ray done today showed worsened pulmonary edema and pneumonia. IMPRESSION: 1. Septic shock secondary to bilateral worsening pneumonia. 2. Hypoxic hypercarbic respiratory failure. 3. Pulmonary edema. 4. Junctional bradycardia and hypotension. 5. Upper gastrointestinal bleed secondary to bleeding duodenal ulcer, status post cautery on 01/31. 6. Left heel osteomyelitis with methicillin-resistant Staphylococcus aureus and Acinetobacter. 7. Pancytopenia and thrombocytopenia. 8. Left lower extremity deep venous thrombosis. 9. Atrial fibrillation requiring cardioversion. RECOMMENDATIONS: 1. We will continue with the supportive care. The patient is DNR level 1. We will continue with Protonix twice daily and Carafate 1 g every 6 hours. Continue to watch the blood counts, transfuse as needed. We will start him on iron-C b.i.d. and multivitamin once daily. 2. He continues on antibiotics with Zosyn, azithromycin and vancomycin. 3. The patient is in ICU. He is critical. I have discussed the above findings with the patient's nurse and with the family, and all questions answered. Please call us with any further questions. cc: MD Cj Michelle MD
[2019-02-02] MEDS: LEVOPHED 8 MG in D5 1/2 NS 250 ML IV SCH (18:34)
[2019-02-02 18:48] LABS: ALLEN TEST YES; BE -5.7 mmoll (-3.0-3.0); BLOOD TYPE ARTERIAL; HCO3-(ACT) 20.4 mmoll (20.0-26.0); PO2(98.6) 61 mmHg (60-100); SAMPLE BLOOD; SAO2 92.6 % (95.0-100.0); THB 8.7 g/dL (11.5-17.4)
[2019-02-02 18:50] LABS: PCO2(98.6) 65 mmHg (35-45); pH(98.6) 7.16 (7.35-7.45)
[2019-02-02 18:51] LABS: MODALITY NRB; O2HB 89.6 % (95.0-99.0)
[2019-02-02] MEDS: ICAR-C PO SCH (21:14)
[2019-02-02 22:14] LABS: ALLEN TEST YES; BE -6.2 mmoll (-3.0-3.0); BLOOD TYPE ARTERIAL; METHB 1.4 % (0.0-1.5); O2(CT) 12.1 mL/dL (15.0-23.0); PCO2(98.6) 43 mmHg (35-45); PO2(98.6) 58 mmHg (60-100); SAMPLE BLOOD; SAO2 94.8 % (95.0-100.0); THB 9.4 g/dL (11.5-17.4); pH(98.6) 7.28 (7.35-7.45)
[2019-02-02 22:15] LABS: MODALITY BI PAP
[2019-02-03] MEDS: CARAFATE LIQUID PO SCH ×2 (01:24→09:33)
[2019-02-03] MEDS: DOPAMINE 800 MG/D5W 800 MG/500 ML IV.SOLN IV SCH (02:19)
[2019-02-03] MEDS: LEVOPHED 8 MG in D5 1/2 NS 250 ML IV SCH (02:21)
[2019-02-03] MEDS: ZOSYN 3.375 GM in NS 50 ML IV SCH ×2 (02:21→09:34)
[2019-02-03] MEDS: STERILE WATER INJ. INJ PRN (03:02)
[2019-02-03] MEDS: DUONEB (A & A) INH SCH (03:27)
[2019-02-03 04:27] LABS: ALLEN TEST YES; BE -5.4 mmoll (-3.0-3.0); BLOOD TYPE ARTERIAL; HCO3-(ACT) 20.6 mmoll (20.0-26.0); METHB 1.5 % (0.0-1.5); O2(CT) 13.8 mL/dL (15.0-23.0); O2HB 90.2 % (95.0-99.0); PCO2(98.6) 38 mmHg (35-45); PO2(98.6) 57 mmHg (60-100); SAMPLE BLOOD; SAO2 93.9 % (95.0-100.0); THB 10.9 g/dL (11.5-17.4); pH(98.6) 7.33 (7.35-7.45)
[2019-02-03 04:28] LABS: MODALITY BI PAP
[2019-02-03 06:32] LABS: BASO# 0.01 X1000 (0.0-0.2); BASO% 0.1 % (0.0-0.8); EOS# 0.01 X1000 (0.0-0.7); EOS% 0.1 % (0.0-10.0); HEMATOCRIT 28.8 % (42.0-52.0); HEMOGLOBIN 8.8 g/dL (14.0-18.0); LYMPH# 3.95 X1000 (1.2-3.4); LYMPH% 39.7 % (20.5-51.1); MCH 29.7 PG (27-31); MCHC 30.6 g/dL (33-37); MCV 97.3 FL (81-99); MPV 11.6 FL (7.4-10.4); NEUT# 5.09 X1000 (1.4-6.5); NEUT% 51.1 % (42.2-75.2); PLT 78 X1000 (130-400); RBC 2.96 XMIL (4.7-6.1); RDW 21.5 % (11.5-14.5); WBC 9.96 X1000 (4.8-10.8)
[2019-02-03 07:05] LABS: CALCIUM 8.6 mg/dL (8.8-10.2); CREATININE 1.9 mg/dL (0.7-1.2); POTASSIUM 3.6 mmol/L (3.5-5.1)
[2019-02-03 07:06] LABS: BANDS 2 % (0-1); LYMPHS 50 % (21-51); NRBC 1 % (0-0); SEGS 38 % (42-75)
[2019-02-03] MEDS ORDERED: VANCOMYCIN 2,000 MG in NS 500 ML IV SCH (08:00)
--- NOTE | 2019-02-03 08:00 | PROGRESS NOTE ---
DATE: 02/03/2019 INTERVAL HISTORY: Mr. Person was put on BiPAP yesterday night. Repeat ABG had severe hypercarbic respiratory failure and respiratory acidosis. He also was hypotensive and was started on norepinephrine. Overnight, his ABG suggested improvement on BiPAP. He continues to have worsening acute kidney injury and renal failure. SUBJECTIVE: The patient is confused, fidgety, trying to take his BiPAP mask off. He looks uncomfortable on BiPAP. He does not answer any questions. VITAL SIGNS: He has been afebrile with temperature 97.1 degrees, pulse is 120. On monitor, he does have fluctuating heart rate considering he is fidgety. Respiratory 25, blood pressure 90/60. He is saturating in the 70s. I just placed an order to increase FiO2 to 90%. Input and output: He is not making adequate urine. LABORATORY DATA: WBC of 9000, normocytic anemia with hemoglobin of 8.8, platelets of 78,000. His ABG, the latest, is suggestive of pH of 7.33 on 50% FiO2. He does have hyperchloremia, elevated BUN and creatinine. MICROBIOLOGY: Blood cultures have been ordered. IMAGING: No new imaging today, except echocardiogram which was done yesterday, which had normal left ventricular cavity site with ejection fraction of 65% and asymmetric septal hypertrophy. ASSESSMENT AND PLAN: 1. Septic shock due to bilateral pneumonia leading to acute hypoxic hypercarbic respiratory failure. Continue to cycle bilevel positive airway pressure and nonrebreather mask as tolerated. He had received intravenous fluids yesterday. He continues to have poor kidney function despite being on pressors. Continue dopamine and norepinephrine to maintain MAP more than 65. Continue intravenous vancomycin, Zosyn, and azithromycin, and I would consider changing vancomycin, stopping intravenous vancomycin considering his acute renal failure. 2. Bradycardia and intermittent atrial fibrillation. Currently, he does appear to be in atrial fibrillation due to current septic shock. His echocardiogram was essentially unremarkable. He is not able to take anything by mouth, and his heart rate is fluctuating. I will continue to monitor him. If his heart rate goes significantly high, more than 130 persistently, I will consider adding other medications according to family's wishes in terms of goals of care. 3. Upper gastrointestinal bleed from bleeding duodenal ulcer leading to acute blood loss anemia, status post esophagogastroduodenoscopy and cauterization of ulcer on 01/31/2019 and 3 units of packed red blood cells. Continue to monitor complete blood count, intravenous Protonix and sucralfate, though he is not able to take by mouth. 4. Left heel osteomyelitis with methicillin-resistant Staphylococcus aureus and Acinetobacter. Continue intravenous Zosyn, and I appreciate Infectious Disease recommendation about stopping intravenous vancomycin considering his acute kidney injury. 5. Pancytopenia with thrombocytopenia, currently in acceptable range. 6. Left lower extremity deep venous thrombosis. Continue to hold anticoagulation considering recent episode of bleeding ulcer. 7. Others. Atrial fibrillation requiring cardioversion in 2010. I will resume his amiodarone once he is able to take by mouth. Continue Zydelig for non-Hodgkin's lymphoma. 8. Disposition. The patient's condition is critical. More than 30 minutes of critical care time was spent in taking care of this patient. Unfortunately, he has been functionally declining and has been needing bilevel positive airway pressure. I will address further goals of care with the family. cc: Cj Brennan MD
[2019-02-03] MEDS ORDERED: MORPHINE IV PRN (08:50)
[2019-02-03] MEDS ORDERED: ATIVAN IV PRN (08:51)
[2019-02-03] MEDS ORDERED: ZYPREXA IM PRN (08:53)
[2019-02-03] MEDS ORDERED: ELDERTONIC PO SCH (09:00)
[2019-02-03] MEDS: SANTYL OINT TOP SCH (09:33)
[2019-02-03] MEDS: ICAR-C PO SCH (09:34)
[2019-02-03] MEDS: BIDEX PO SCH (09:34)
[2019-02-03] MEDS: PATIENT'S OWN MED PO SCH (09:35)
--- NOTE | 2019-02-03 09:55 | PROGRESS NOTE ---
DATE: 02/03/2019 SUBJECTIVE: This is another goals of care discussion. I went to the bedside again and I talked with the patient's son and at bedside. I explained to them about the patient's clinical condition. I explained to them that the patient has been in the hospital for a few weeks now, and he has been recruiting more and more medical problems. To begin with, he had osteomyelitis and then he developed pneumonia and then a bleeding duodenal ulcer and then recurrent pneumonia, and now he is in hypoxic respiratory failure and acute kidney injury requiring BiPAP, which he is not tolerating well and trying to take out, and requiring IV pressors. So he has been on 2 kinds of life support. Understanding his clinical conditions in detail, the patient's son and in agreement decided to pursue comfort measures only. I explained to them that this would mean that our goals will be to provide him care targeting his discomfort, pain, and anxiety, and we would stop the antibiotics, IV pressors, and all those measures which seem uncomfortable to him, and we would just address his comfort and let the medical illness take its course and make him peaceful. Family understood this, is in agreement. I will start the patient on intravenous morphine, Ativan, intramuscular olanzapine, albuterol ipratropium nebulization. We will take the BiPAP mask off and keep him on nasal cannula or simple Ventimask as tolerated, and transfer him to medical floor. Plan of care discussed with the nursing team. All of their questions answered. More than 30 minutes spent in goals of care discussion. cc: Cj Brennan MD
[2019-02-03] MEDS ORDERED: DUONEB (A & A) INH SCH (11:30)
[2019-02-03 14:24] VITALS: BP 52/27
--- NOTE | 2019-02-03 15:15 | DISCHARGE SUMMARY ---
ADMISSION DATE: 01/15/2019 DISCHARGE DATE: 02/03/2019 TIME OF : 1:13 p.m. CAUSE OF : Bilateral pneumonia. CONTRIBUTING CAUSES: Septic shock because of pneumonia, acute kidney injury, dementia. HOSPITAL COURSE SUMMARY: Mr. Person is an 88-year-old man with past medical history of dementia, who was initially admitted on 01/15/2019 with chief complaint of left knee pain and left foot sore, and was found to be in sepsis because of left heel osteomyelitis. He was being treated with intravenous antibiotics. His hospital course was marked by development of pneumonia, bleeding duodenal ulcer, recurrence of bilateral pneumonia, and acute kidney injury, and he was eventually transferred to ICU for septic shock and was requiring noninvasive ventilation and pressors. The patient's code status was DO NOT RESUSCITATE level 1, and family had decided not to intubate him or give him cardiac compression or shock. On the day of on 02/03/2019, I had an extensive discussion with the patient's son about his medical condition, and it was decided to make the patient comfort measures only, so his BiPAP mask was removed, and his pressor medications were stopped. He was given intravenous morphine and Ativan as needed. He eventually on 02/03/2019 at 1313 p.m. I went and evaluated the patient at bedside. His pupils were bilaterally fixed, not reacting. He did not have spontaneous breathing. He did not have heart sounds or carotid pulses. He was pronounced . I went and talked with the patient's family and had expressed my empathy. cc: Cj Brennan MD
--- NOTE | 2019-02-04 08:18 | EKG Report ---
Test Performed on : 02/01/2019 7:49:05 PM Test Reason : EVAL Blood Pressure : / mmHG Vent. Rate : 038 BPM Atrial Rate : 029 BPM P-R Int : 000 ms QRS Dur : 112 ms QT Int : 468 ms P-R-T Axes : 000 046 032 degrees QTc Int : 372 ms Junctional bradycardia. Nonspecific ST and T wave abnormality Abnormal ECG When compared with ECG of 27-JAN-2019 06:27, Junctional rhythm. has replaced Sinus rhythm. Vent. rate has decreased BY 22 BPM Questionable change in QRS duration Confirmed by Cristofer YOU, Yohannes Brar ([id number]) on 02/04/2019 9:29:56 AM
== END 2019-02-03 13:11 | disposition expired | DRG 871 ==
LOC: ED 09:01 → SUATTDRO 16:33 → 3S 16:33 → 3N 01-24 13:06 → ICU 02-01 20:00
PROVIDERS: ATTEND Internal Medicine
PROC: EN.HEAT (2019-01-31 10:42)
CPT/HCPCS: 36430; 71010; 71045; 71275; 73562; 73630; 78315; 80048; 80053; 80202; 81001; 82270; 82550; 82805; 83605; 83735; 83880; 84100; 84145; 84443; 84484; 85014; 85018; 85025; 85379; 85610; 85730; 86850; 86900; 86901; 86920; 87040; 87070; 87077; 87186; 87205; 87324; 87449; 89051; 93005; 93010; 93306; 93970; 94640; 94660; 94760; 94761; 96365; 96366; 96367; 97110; 97162; 97530; 99285; A9270; A9503; C9113; J0456; J0692; J0878; J1265; J1630; J1650; J1940; J2020; J2060; J2270; J2358; J2543; J3010; J3370; J3475; J3480; J3486; J7030; J7040; J7050; J7070; P9016; Q9967; S0073; S0164